=== PATIENT | female | born 1945 | race Caucasian/White ===

== ENCOUNTER → 2017-11-24 12:34 | Outpatient (CLI) | payer MEDICARE, OTHER, SELFPAY ==
--- NOTE | 2017-11-24 12:38 | CT_ITS ---
STUDY: CT ABDOMEN AND PELVIS WITH CONTRAST REASON FOR EXAM: Female, 72 years old. Lung nodule splenic nodule RADIATION DOSAGE (If Supplied By Facility): CTDIvol = ( 12.41 ) mGy, DLP = ( 1108.91 ) mGycm TECHNIQUE: Transaxial images were obtained from the dome of the diaphragm to the symphysis pubis with oral contrast. 100 ml of Isovue 300 contrast was administered. Sagittal and coronal images were reconstructed. Individualized dose optimization techniques were used for this CT. COMPARISON: August 07, 2017 CT scan abdomen and pelvis CT chest November 24, 2017 to evaluate the upper aspect of the liver. FINDINGS: The visualized lung bases are unremarkable. The visualized portions of the heart are within normal limits. The liver is mildly enlarged and fatty infiltrated. The liver is partially visualized on this study. Please refer to the CT scan of the chest performed the same day. Upon review of these images of the lower chest there is visualization of a homogeneous fatty infiltrated appearance of the liver. There is a gallstone within the cystic duct measuring 2.4 mm without evidence of associated inflammation intrahepatic or extrahepatic ductal dilatation. There is a persistent near isodense mass involving the spleen measuring 6.9 x 7.1 cm Normal pancreas. Normal bilateral adrenal glands. Normal right kidney. Normal left kidney. Normal visualized stomach. Normal small intestine. There is a moderate amount of stool within the fairly tortuous colon. There is a pattern of a few diverticula present without evidence of diverticulitis. There is upper limits of normal distention of the appendix caliber is 7 mm without evidence of surrounding inflammation fairly similar to prior study. There is partial calcification of the aorta. Normal inferior vena cava. Normal retroperitoneum. Normal urinary bladder. There is a small mass within the fundus of the uterus that measures 1.6 x 1.7 cm with calcification compatible with a small fibroid. There is a small umbilical hernia containing fat. There are diffuse degenerative changes of the visualized lumbar spine. CT/Abdomen/Pelvis WITH Contrast IMPRESSION: Stable large lobulation or mass within the spleen. Hepatic steatosis Cholelithiasis. Constipation and diverticulosis no evidence of diverticulitis. Uterine fibroid. Degenerative change of the thoracolumbar spine. Electronically Signed: Bebe Bahena MD at 17:12 EST Tel , Service support ,
--- NOTE | 2017-11-24 12:38 | CT_ITS ---
STUDY: CT CHEST WITHOUT CONTRAST REASON FOR EXAM: Female, 72 years old. Lung nodule RADIATION DOSAGE (If Supplied By Facility): CTDIvol = ( 12.41 ) mGy, DLP = ( 1108.91 ) mGycm TECHNIQUE: Transaxial imaging was performed without the administration of intravenous contrast material. Multiplanar coronal and sagittal images were reformatted. Individualized dose optimization techniques were used for this CT. COMPARISON: CT chest August 07, 2017 FINDINGS: There is a persistent slightly greater size focus of consolidated lung in the right upper lobe above the horizontal fissure. This is similar to the prior study. There are a few adjacent nodular densities and groundglass opacities extending into the anterior aspect of the right upper lobe and to some degree the middle lobe. The remainder of the lungs are grossly clear. There is no demonstrated pleural abnormality. There is borderline cardiac enlargement. Normal mediastinum. Normal hilar regions. Normal unenhanced pulmonary arteries. There is partial calcification of the aorta. There are multi-level degenerative changes of the thoracic spine. The liver is enlarged and fatty infiltrated. CT/Chest without Contrast IMPRESSION: There is a persistent focal density, bronchiectasis and scar like appearance within the right upper lobe with surrounding groundglass opacity and nodularity. There may be lesser groundglass opacities in prior study. Findings are suspicious for an inflammatory process, however neoplasm could be considered. Consider possible etiologies such as atypical pneumonia, chronic mycobacterium avium complex. Continued follow-up is recommended including consideration for follow-up bronchoscopy. Persistent large lobulation of the spleen stable since prior study. Hepatic steatosis. Electronically Signed: Bebe Bahena MD at 17:49 EST Tel , Service support ,
[2017-11-24 12:56] LABS: CREATININE FINGERSTICK 0.9 mg/dL (0.55-1.02); EGFR FINGERSTICK > 60.0000 mL/min (>60)
== END ==
PROVIDERS: Family Provider Internal Medicine; PCP Internal Medicine; Visit Provider Internal Medicine Pulmonary Disease
DX: R91.1 Solitary pulmonary nodule (principal); R16.1 Splenomegaly, not elsewhere classified
CPT/HCPCS: 71250; 74177; Q9967

== ENCOUNTER → 2018-01-06 11:03 | Outpatient (CLI) | payer MEDICARE, OTHER, SELFPAY ==
--- NOTE | 2018-01-06 11:06 | HPBD_ITS ---
STUDY: DUAL ENERGY X-RAY ABSORPTIOMETRY / DXA REASON FOR EXAM: Female, 72 years old. Postmenopausal female. Patient taking Forteo. TECHNIQUE: Bone Mineral Density (BMD) measurements of lumbar spine and left hip were obtained. COMPARISON: None. FINDINGS: Lumbar Spine (L1-L4): g/cm2 (1.256) / T-score (0.7) / Z-score (2.4) Findings are suggestive of normal bone density with a low fracture risk. Left Femur Total: g/cm2 (0.820) / T-score (-1.5) / Z-score (0.0) Left Femoral Neck: g/cm2 (0.876) / T-score (-1.2) / Z-score (0.6) HPBD/Dexa Bone Density Study (HP) IMPRESSION: The patient is considered osteopenic as outlined below according to World Byron Organization (WHO) criteria with a moderate fracture risk. Reference Information: The T-score is the number of standard deviations above or below the standard which is normal for young adults at their peak bone mineral density. The World Health Organization (WHO) interprets the T-scores as follows: Above -1 Normal bone density Between -1 and -2.5 Osteopenia Equal to / or below -2.5 Osteoporosis As a practical clinical guideline, osteopenia may be graded as follows: Mild -1 through -1.5 Moderate -1.6 through -2.0 Severe -2.1 through -2.4 The Z-score is the number of standard deviations above or below age-matched controls. A Z-score of less than -1.5 would be considered abnormal. References: 1. NIH Osteoporosis and Related Bone Diseases http://www.osteo.org 2. International Society for Clinical Densitometry http://www.iscd.org 3. National Osteoporosis Foundation http://www.nof.org Electronically Signed: Augustin Magaña DO at 9:05 EDT Tel [phone], Service support ,
== END ==
PROVIDERS: Family Provider Internal Medicine; PCP Internal Medicine; Visit Provider Internal Medicine
DX: Z78.0 Asymptomatic menopausal state (principal)
CPT/HCPCS: 77080

== ENCOUNTER → 2018-04-09 07:50 | Outpatient (CLI) | payer MEDICARE, OTHER, SELFPAY ==
[2018-04-09 10:47] LABS: Absolute Lymphocyte Count 1.48 X10^3/ul (0.83-4.51); Absolute Neutrophil Count 3.6 X10^3/uL (2.0-7.7); Basophil# 0.02 X10^3/uL; Basophil% 0.4 % (0-1); Eosinophil# 0.08 X10^3/uL; Eosinophils% 1.4 % (0-5); Hematocrit 38.5 % (37-47); Hemoglobin 12.8 g/dl (12.0-15.0); Lymphocyte # 1.48 X10^3/ul (4.0); Lymphocyte % 26.6 % (19-41); Mean Corp Hgb Conc 33.2 g/gl (32-36); Mean Corpuscular Hgb 32.1 pg (27.0-32.0); Mean Corpuscular Volume 96.5 fL (81-99); Mean Platelet Vol. 12.1 fl (6.2-12.0); Monocyte# 0.34 X10^3/uL; Monocyte% 6.1 % (0-10); Neutrophil # 3.63 X10^3/uL (2.7-7.7); Neutrophil % 65.3 % (47-70); Platelet Count 179 K/mm3 (150-450); RBC Distribution Width CV 11.9 % (11.6-14.6); RBC Distribution Width SD 40.7 fl (35.1-43.9); Red Blood Count 3.99 M/mm3 (4.2-5.4); White Blood Count 5.6 K/mm3 (4.4-11.0)
[2018-04-09 10:51] LABS: POSITIVE COUNT NO; POSITIVE DIFFERENTIAL NO; POSITIVE MORPHOLOGY NO
[2018-04-09 10:55] LABS: Vitamin B12 343 pg/mL (211-911); Vitamin D,25 Hydroxy 45.4 ng/mL (29.95-100.01)
[2018-04-09 10:58] LABS: ALB/GLOB Ratio 1.1 RATIO (0.9-2.4); AST(SGOT) 19 U/L (15-37); Alanine Aminotransfer ALT/SGPT 32 U/L (13-56); Albumin, Serum 3.7 g/dL (3.2-5.0); Alkaline Phosphatase 76 U/L (45-117); Anion Gap 8 (5-15); BUN 17 mg/dL (7-18); BUN/Creat Ratio 23.3 RATIO (10-20); Calcium,Total 8.6 mg/dL (8.5-10.1); Chloride 106 mmol/L (98-107); Cholesterol 143 mg/dL (200); Creatinine, Serum 0.73 mg/dL (0.55-1.02); EST Glomerular Filtration Rate 83 mL/min (>60); Est Glom Filt Rate - Afr Amer 101 mL/min (>60); Globulin 3.5 g/dL (2.2-4.2); Glucose 98 mg/dL (74-106); High Density Lipoprotein 60 mg/dL; Potassium 3.7 mmol/L (3.5-5.1); Protein, Total 7.2 g/dL (6.4-8.2); Sodium Level 142 mmol/L (136-145); Triglycerides 125 mg/dL; Very Low Density Lipoprotein 25 mg/dL (5-40)
[2018-04-09 11:13] LABS: Microalbumin,Random Urine 5.2 mg/L (NO RANGE EST.); Microalbumin:Creatinine Ratio 6.8 mg/g CRE (<30 mg/g CRE)
== END ==
PROVIDERS: Family Provider Internal Medicine; PCP Internal Medicine; Visit Provider Internal Medicine
DX: E78.5 Hyperlipidemia, unspecified (principal); R73.01 Impaired fasting glucose; E53.8 Deficiency of other specified B group vitamins; E55.9 Vitamin D deficiency, unspecified; K76.0 Fatty (change of) liver, not elsewhere classified; R79.82 Elevated C-reactive protein (CRP)
CPT/HCPCS: 36415; 80053; 80061; 82043; 82105; 82306; 82570; 82607; 85025; 86141

== ENCOUNTER → 2018-04-23 10:30 | Outpatient (CLI) | payer MEDICARE, OTHER, SELFPAY ==
--- NOTE | 2018-04-23 10:32 | RAD_ITS ---
STUDY: X-RAY - PELVIS AND LEFT HIP REASON FOR EXAM: Female, 72 years old. TECHNIQUE: Radiological exam, hip, unilateral, with pelvis when performed; 2 or 3 views. COMPARISON: None. FINDINGS: There is a non-specific bowel gas pattern. There are multiple calcified phleboliths. There are enthesophytes arising from the anterior superior iliac crests. Normal bilateral superior and inferior pubic rami. Normal pubic symphysis. There are enthesophytes arising from the ischial tuberosities. There are osteoarthritic changes of the left femoral head with marginal osteophyte formation. There appear to be enthesophytes arising from bilateral greater trochanters. There is osteoarthritic spur formation of the acetabular rim. There is mild articular joint space narrowing of the hip. RAD/Hip 2-3 Views with Pelvis IMPRESSION: Degenerative changes of the pelvis and both hips. Electronically Signed: Ira Segura MD at 8:53 EDT , Service support ,
== END ==
PROVIDERS: Family Provider Internal Medicine; PCP Internal Medicine; Visit Provider Internal Medicine
DX: M25.552 Pain in left hip (principal)
CPT/HCPCS: 73502

== ENCOUNTER → 2018-05-24 12:33 | Outpatient (CLI) | payer MEDICARE, OTHER, SELFPAY | PROVIDERS: Family Provider Internal Medicine; PCP Internal Medicine; Visit Provider Internal Medicine Pulmonary Disease | DX: R91.1 Solitary pulmonary nodule (principal) | CPT/HCPCS: 71250 ==

== ENCOUNTER → 2018-06-24 13:25 | Outpatient (CLI) | payer MEDICARE, OTHER, SELFPAY ==
--- NOTE | 2018-06-24 13:29 | CT_ITS ---
STUDY: CT ABDOMEN WITH CONTRAST REASON FOR EXAM: Female, 72 years old. Splenic mass RADIATION DOSAGE (If Supplied By Facility): CTDIvol = ( 13.36 ) mGy, DLP = ( 361.17 ) mGycm TECHNIQUE: Transaxial images were obtained post I.V. administration of 75CC ml of Isovue 250 contrast, and without oral contrast. Sagittal and coronal images were reconstructed. Individualized dose optimization techniques were used for this CT. COMPARISON: November 24, 2017. FINDINGS: The visualized lung bases are unremarkable. The visualized portions of the heart are within normal limits. Normal liver. There is a solitary gallstone. There is stable 8.3 x 7.3 cm heterogeneous enhancing mass in the lower pole of the spleen. Normal pancreas. Normal bilateral adrenal glands. Normal right kidney. Normal left kidney. Normal visualized stomach. Normal small intestine. Normal colon. The appendix is visualized and appears normal. There is diffuse atherosclerotic calcification of the abdominal aorta, without a demonstrated aneurysm. Normal inferior vena cava. Normal retroperitoneum. There is a small umbilical hernia containing fat. There are diffuse degenerative changes of the visualized lumbar spine. CT/Abdomen WITH IV Contrast IMPRESSION: Stable enhancing mass in the spleen. Gallstone. No biliary dilatation. Electronically Signed: Agustín Montoya MD at 10:24 EDT , Service support ,
[2018-06-25 07:45] LABS: CREATININE FINGERSTICK 0.7 mg/dL (0.55-1.02)
== END ==
PROVIDERS: Family Provider Internal Medicine; PCP Internal Medicine; Visit Provider Internal Medicine
DX: R16.1 Splenomegaly, not elsewhere classified (principal)
CPT/HCPCS: 74160; Q9967

== ENCOUNTER → 2018-08-18 17:43 | Outpatient (CLI) | payer MEDICARE, OTHER, SELFPAY ==
[2018-08-18 18:25] LABS: Creatinine, Serum 0.82 mg/dL (0.55-1.02); EST Glomerular Filtration Rate 73 mL/min (>60); Est Glom Filt Rate - Afr Amer 88 mL/min (>60)
== END ==
PROVIDERS: Family Provider Internal Medicine; PCP Internal Medicine; Referring Provider Podiatrist Foot & Ankle Surgery; Visit Provider Podiatrist Foot & Ankle Surgery
DX: M79.661 Pain in right lower leg (principal)
CPT/HCPCS: 36415; 82565

== ENCOUNTER → 2018-08-19 10:51 | Outpatient (CLI) | payer MEDICARE, OTHER, SELFPAY ==
--- NOTE | 2018-08-19 11:06 | MRI_ITS ---
STUDY: MRI LOWER EXTREMITY RIGHT TIBIA/FIBULA WITH AND WITHOUT CONTRAST REASON FOR EXAM: Follow-up of cortical irregularities of the fibula with periosteal reaction after a fall from a ladder. TECHNIQUE: Standardized fat and water weighted pulse sequences were obtained in all 3 orthogonal planes, post contrast administration. 7 ml of Gadavist contrast material was administered intravenously for the contrast portion of the examination. COMPARISON: None. FINDINGS: There is a nondisplaced fracture of the right fibular head/neck (T1 coronal images 13-15; T1 axial images 5, 6) with mild intramedullary and periosteal bone edema (inversion recovery axial images 5, 6) and mild periosteal contrast enhancement (postcontrast T1 axial images 5, 6). Otherwise, unremarkable right fibula. Normal right tibia. There is mild edema in the proximal right tibialis anterior, extensor digitorum longus, peroneus longus and soleus muscles (inversion recovery axial images 7-11). There is edema in the subcutis adipose space of the distal lower leg/ankle (inversion recovery coronal images 11-16). There is no solid, cystic or lipomatous mass lesion of the subcutis adipose space. MRI/Lower Ext/No Jt/w/o IMPRESSION: Nondisplaced fracture of the right fibular head/neck with mild periosteal reaction but no evidence of pathologic fracture. Mild edema in the proximal right tibialis anterior, extensor digitorum longus, peroneus longus and soleus muscles. Electronically Signed: Demarcus Glover MD at 10:41 EST Tel , Service support ,
== END ==
PROVIDERS: Family Provider Internal Medicine; PCP Internal Medicine; Referring Provider Podiatrist Foot & Ankle Surgery; Visit Provider Podiatrist Foot & Ankle Surgery
DX: M79.661 Pain in right lower leg (principal)
CPT/HCPCS: 73718; A9585

== ENCOUNTER → 2018-10-13 14:36 | Outpatient (CLI) | payer MEDICARE, OTHER, SELFPAY | PROVIDERS: Family Provider Internal Medicine; PCP Internal Medicine; Referring Provider Internal Medicine; Visit Provider Internal Medicine | DX: R50.9 Fever, unspecified (principal) | CPT/HCPCS: 87807 ==

== ENCOUNTER → 2018-11-26 08:18 | Outpatient (CLI) | payer MEDICARE, OTHER, SELFPAY ==
--- NOTE | 2018-11-26 08:22 | BI_ITS ---
MAMMOGRAPHY - BILATERAL SCREENING REASON FOR EXAM: Female, 73 years old. Routine annual screening examination. PERTINENT HISTORY: Grandmother with breast cancer. Aunt with breast cancer. Remote left stereotactic breast biopsy. TECHNIQUE: Digital bilateral breast tom (3D mammographic acquisition) in the CC and MLO projections. 2-D mediolateral oblique (MLO) and craniocaudad (CC) views of both breasts were obtained. CAD: Full Field Digital Mammography with Computer Added Detection was performed. COMPARISON: Comparison is made with prior study dated October 20, 2017 and October 17, 2016. FINDINGS: Breast Composition: The breasts are heterogeneously dense, which may obscure small masses. There are no dominant masses or suspicious calcifications. Stable appearance of the bilateral axillary lymph nodes. A tissue clip marker is seen in the retroareolar region of the left breast. No other significant abnormalities are identified. There has been no significant change since the prior study. BI/SCREENING MAMM (CAD), BILAT IMPRESSION: Stable bilateral screening mammogram. Yearly follow-up mammogram recommended. (A) ASSESSMENT CATEGORY: BIRADS Category 2: Benign. A letter regarding these results will be sent to the patient by the facility within 30 days. Approximately 10% of breast cancers are not detected by mammography. A normal mammogram should not delay biopsy of a clinically suspicious abnormality. [id number] Electronically Signed: Nikita Gilmore MD at 11:04 EST , Service support ,
== END ==
PROVIDERS: Family Provider Internal Medicine; PCP Internal Medicine; Referring Provider Internal Medicine; Visit Provider Internal Medicine
DX: Z12.31 Encounter for screening mammogram for malignant neoplasm of breast (principal)
CPT/HCPCS: 77063; 77067

== ENCOUNTER → 2019-01-25 07:29 | Outpatient (CLI) | payer MEDICARE, OTHER, SELFPAY ==
[2019-01-18 11:05] VITALS: BMI 30.5
--- NOTE | 2019-01-25 07:35 | CT_ITS ---
STUDY: CT ABDOMEN WITH CONTRAST REASON FOR EXAM: Female, 73 years old. Splenic mass RADIATION DOSAGE (If Supplied By Facility): CTDIvol = ( 17.76 ) mGy, DLP = ( 1009.72 ) mGycm TECHNIQUE: Transaxial images were obtained post I.V. administration of 100 IV/Oral Isovue 300, and oral contrast. Sagittal and coronal images were reconstructed. Individualized dose optimization techniques were used for this CT. COMPARISON: 06/24/2018 FINDINGS: Minimal atelectasis versus scar at the left medial lung base. Diffuse homogeneous hypoattenuation of the liver parenchyma. Normal gallbladder and extrahepatic biliary system. 7.5 x 6.8 cm heterogeneously enhancing mass within the anterior splenic pole, unchanged in size and appearance compared to prior imaging dating back to remote PET/CT imaging dated 08/24/2017. Normal pancreas. Normal bilateral adrenal glands. Visualized portions of the kidneys are normal with the exception of indeterminate hypoattenuated lesions at the right upper renal pole, unchanged from prior imaging.. Normal left kidney. Normal visualized stomach. Visualized small bowel loops are normal. Visualized colonic segments are normal.. Normal abdominal aorta. Normal inferior vena cava. Normal retroperitoneum. Normal abdominal wall. No acute skeletal abnormality. Mild multilevel degenerative change of the spine. CT/Abdomen WITH IV Contrast IMPRESSION: 1. Stable 7.5 cm enhancing mass within the anterior splenic pole, potentially representing a large splenic hamartoma 2. Mild fatty infiltration of the liver. 3. Hypoattenuated lesions in the right upper renal pole which are too small to characterize but which likely represent simple cysts. Electronically Signed: Jaron Howe MD at 2:22 EDT Tel , Service support ,
== END ==
PROVIDERS: Family Provider Internal Medicine; PCP Internal Medicine; Referring Provider Internal Medicine; Visit Provider Internal Medicine
DX: R16.1 Splenomegaly, not elsewhere classified (principal)
CPT/HCPCS: 74160; Q9967

== ENCOUNTER → 2019-05-24 | Outpatient (CLI) | payer MEDICARE, OTHER, SELFPAY ==
[2019-01-18 11:05] VITALS: BMI 30.5
--- NOTE | 2019-05-24 12:41 | CT_ITS ---
STUDY: CT CHEST WITHOUT CONTRAST REASON FOR EXAM: Female, 73 years old. Follow-up lung nodule RADIATION DOSAGE (If Supplied By Facility): CTDIvol = ( 8.20 ) mGy, DLP = ( 294.69 ) mGycm TECHNIQUE: Transaxial imaging was performed without the administration of intravenous contrast material. Individualized dose optimization techniques were used for this CT. COMPARISON: Prior study of 05/24/2018 FINDINGS: There is a 2.6 mm nodule of the anterior right upper lobe apex image 47 series 4, new in the interval. There is a stable 5.0 cm millimeter nodule of the anterior right upper lobe, image 54 series 4. There are scattered ill-defined patchy densities of the right upper lobe appearing similar to the previous study. There are fibrotic changes with bronchiectasis of the right upper lobe, similar to the previous study. There is a pleural-based 4 mm nodule of the posterior right lower lobe, stable in the interval. There is a stable 4.7 mm left lingular nodule image 196 series 4. There is a stable 3.7 mm left lower lobe nodule image 167 series 4. There is a stable 6.4 mm pleural-based nodule of the left lower lobe image 139 series 4. There is a stable 4.5 mm nodule of the left upper lobe image 96 series 4. There is no demonstrated pleural abnormality. The heart size is within normal limits. There is no pericardial effusion. Coronary arterial calcifications are present. Normal mediastinum. Normal hilar regions. Normal unenhanced pulmonary arteries. There calcified plaques of the aortic arch. The ascending thoracic aorta is ectatic measuring up to 3.9 cm in diameter. There are diffuse degenerative changes of the visualized thoracolumbar spine. There is a homogeneous enhancing mass of the inferior spleen measuring at least 7.9 x 7.5 cm. The entirety of this is not included in the [id number] of this study. This appears similar to prior CT abdomen of 01/25/2019. CT/Chest without Contrast IMPRESSION: Multiple bilateral pulmonary nodules stable in the interval. No new nodules are evident. Appropriate follow-up using Fleischner Society criteria is recommended. There are scattered ill-defined patchy densities of the right upper lobe with fibrotic changes and bronchiectasis, appearing stable. Ectatic ascending thoracic aorta. Homogeneous enhancing mass of the inferior spleen measuring at least 7.9 x 7.5 cm. The entirety of this is not included in the field of view of this study. This appears similar to prior CT abdomen of 01/25/2019. Electronically Signed: Ant Christie MD at 17:22 EDT , Service support ,
== END | disposition home or self-care (01) ==
LOC: CT 12:40
PROVIDERS: Family Provider Internal Medicine; PCP Internal Medicine; Referring Provider Internal Medicine Pulmonary Disease; Visit Provider Internal Medicine Pulmonary Disease
DX: R91.8 Other nonspecific abnormal finding of lung field (principal)
CPT/HCPCS: 71250

== ENCOUNTER → 2019-08-23 14:45 | Outpatient (CLI) | payer MEDICARE, OTHER, SELFPAY ==
[2019-01-18 11:05] VITALS: BMI 30.5
--- NOTE | 2019-08-23 14:47 | CT_ITS ---
STUDY: CT ABDOMEN WITH CONTRAST REASON FOR EXAM: Female, 74 years old. Splenic mass RADIATION DOSAGE (If Supplied By Facility): CTDIvol = ( 11.14 ) mGy, DLP = ( 348.72 ) mGycm TECHNIQUE: Transaxial images were obtained post I.V. administration of IV/Oral Isovue 300 100, and with oral contrast. Sagittal and coronal images were reconstructed. Individualized dose optimization techniques were used for this CT. COMPARISON: January 25, 2019. FINDINGS: The visualized lung bases are unremarkable. The visualized portions of the heart are within normal limits. Fatty liver. Cholelithiasis. No significant dilatation of the extrahepatic biliary system. There is a solid homogeneous 7.7 x 6.7 x 7.3 cm mass in the spleen. Normal pancreas. Normal bilateral adrenal glands. Probable subcentimeter cysts in the right kidney. Normal left kidney. Normal visualized stomach. Normal small intestine. Diverticulosis of the colon. The appendix is not completely included on the study. Normal abdominal aorta. Normal inferior vena cava. Normal retroperitoneum. Small fatty umbilical hernia. Normal osseous structures. CT/Abdomen WITH IV Contrast IMPRESSION: Cholelithiasis. Solid relatively stable heterogeneous splenic mass. Small fatty umbilical hernia. Fatty liver. Probable subcentimeter right renal cysts. Electronically Signed: Emory Meléndez DO at 23:25 EST Tel [phone], Service support ,
[2019-08-23 15:01] LABS: CREATININE FINGERSTICK < 0.6 mg/dL (0.55-1.02); EGFR FINGERSTICK > 60.0000 mL/min (>60)
== END ==
PROVIDERS: Family Provider Internal Medicine; PCP Internal Medicine; Referring Provider Internal Medicine; Visit Provider Internal Medicine
DX: R16.1 Splenomegaly, not elsewhere classified (principal)
CPT/HCPCS: 74160; Q9967

== ENCOUNTER → 2019-10-10 12:30 | Outpatient (CLI) | payer MEDICARE, OTHER, SELFPAY ==
[2019-01-18 11:05] VITALS: BMI 30.5
--- NOTE | 2019-10-10 12:36 | RAD_ITS ---
STUDY: X-RAY - LUMBAR SPINE REASON FOR EXAM: Female, 74 years old. left leg numbness TECHNIQUE: 3 view(s) of the lumbar spine were obtained. COMPARISON: None FINDINGS: Normal lumbar lordosis. There is no substantial scoliosis. There is a normal alignment of the vertebrae. There is diffuse demineralization with multi-level endplate spondylosis. There is multi-level degenerative disc disease with multi-level disc space narrowing. Disc space narrowing most conspicuous at L4-L5 and L5-S1. Moderate facet arthropathy in the lower lumbar levels. There is no demonstrated fracture. The soft tissue structures are unremarkable. RAD/L/S Spine Min 4 Views IMPRESSION: 1. Multilevel degenerative changes most particularly in the lower 2 lumbar levels. Electronically Signed: Ino Mullen MD ([place]) at 12:44 EST , Service support ,
== END ==
PROVIDERS: Family Provider Internal Medicine; PCP Internal Medicine; Referring Provider Internal Medicine; Visit Provider Internal Medicine
DX: R20.0 Anesthesia of skin (principal)
CPT/HCPCS: 72110

== ENCOUNTER → 2020-03-13 10:36 | Outpatient (CLI) | payer MEDICARE, OTHER, SELFPAY ==
[2019-01-18 11:05] VITALS: BMI 30.5
--- NOTE | 2020-03-13 10:41 | RAD_ITS ---
STUDY: X-RAY - THORACIC SPINE REASON FOR EXAM: Female, 74 years old. upper------ and gt;mid back pain, no injury TECHNIQUE: 3 view(s) of the thoracic spine were obtained. COMPARISON: None. FINDINGS: Mildly exaggerated kyphosis of the thoracic spine. There is no substantial scoliosis. No evidence for acute fracture or subluxation. There is multilevel disc space narrowing and endplate spurring. No lytic or sclerotic bony lesions are observed The soft tissue structures are unremarkable. RAD/Thoracic Spine 3 Views IMPRESSION: Degenerative changes. No evidence for acute fracture or other significant bony pathology Electronically Signed: Saroj Willingham MD at 21:33 EDT , Service support ,
== END ==
PROVIDERS: PCP Internal Medicine; Referring Provider Internal Medicine; Visit Provider Internal Medicine
DX: M54.6 Pain in thoracic spine (principal)
CPT/HCPCS: 72072

== ENCOUNTER → 2020-04-05 13:31 | Outpatient (CLI) | payer MEDICARE, OTHER, SELFPAY ==
[2019-01-18 11:05] VITALS: BMI 30.5
--- NOTE | 2020-04-05 13:34 | CT_ITS ---
STUDY: CT CHEST WITHOUT CONTRAST REASON FOR EXAM: Female, 74 years old. LUNG NODULE F/U RADIATION DOSAGE (If Supplied By Facility): CTDIvol = ( 6.34 ) mGy, DLP = ( 806.45 ) mGycm TECHNIQUE: Transaxial imaging was performed without the administration of intravenous contrast material. Multiplanar coronal and sagittal images were reformatted. Individualized dose optimization techniques were used for this CT. COMPARISON: 05/24/2019 FINDINGS: Lung windows show stable scattered patchy groundglass opacifications in the upper lobe. They measure between 0.4 and 0.7 mm and are essentially unchanged from the previous study. There is a stable likely fibrotic scar also in the right upper lobe on axial image 86 is again measures approximately 3.6 x 3.8 cm with associated traction bronchiectasis and pleural thickening. No other suspicious noncalcified mass or nodule noted. There are other areas of groundglass opacifications in the right lower lobe also unchanged from the previous study. Soft tissue windows show a normal-appearing thyroid gland. There are scattered subcentimeter axillary and mediastinal lymph nodes. There are calcified coronary vessels. No pleural or pericardial effusions. Limited cuts through the upper abdomen show a stable splenic lesion measuring at least 7.9 x 7.5 cm. There are multi-level degenerative changes of the thoracic spine. CT/Chest without Contrast IMPRESSION: Stable patchy ill-defined right upper lobe densities with fibrotic change and bronchiectasis. Stable too numerous to count round glass opacifications in the right upper and lower lobes unchanged from the previous study No suspicious adenopathy Calcified coronary vessels Stable splenic mass Degenerative bony changes Electronically Signed: Chas Joya MD at 13:33 EDT , Service support ,
--- NOTE | 2020-04-05 13:35 | CT_ITS ---
STUDY: CT ABDOMEN WITH CONTRAST REASON FOR EXAM: Female, 74 years old. SPLENIC MASS. No abdominal pain. Delays included in scan RADIATION DOSAGE (If Supplied By Facility): CTDIvol = ( 6.34 ) mGy, DLP = ( 806.45 ) mGycm TECHNIQUE: Transaxial images were obtained post I.V. administration of IV 100ML ISOVUE 370, and oral contrast. Sagittal and coronal images were reconstructed. Individualized dose optimization techniques were used for this CT. COMPARISON: 08/23/2019 FINDINGS: There is decreased attenuation of the liver consistent with steatosis. There are multiple gallstones. Stable appearance of a solid homogeneous 7.7 x 6.7 x 7.3 cm splenic mass. It shows no interval change since the previous study. Normal pancreas. Normal bilateral adrenal glands. No obstructive uropathy, stable subcentimeter cysts in the right kidney. Normal visualized stomach. Normal small intestine. Retained stool noted in the colon. There is non-visualization of the appendix. Normal abdominal aorta. Normal inferior vena cava. Normal retroperitoneum. There is a small fat-containing periumbilical hernia There are diffuse degenerative changes of the visualized lumbar spine. CT/Abdomen WITH IV Contrast IMPRESSION: Stable solid homogeneous splenic lesion, no change since 08/07/2017, no specific follow-up needed. Cholelithiasis, no CT evidence of acute cholecystitis Stable subcentimeter right renal cysts, again no specific follow-up is needed Degenerative bony changes Fatty liver Electronically Signed: Chas Joya MD at 13:43 EDT , Service support ,
--- NOTE | 2020-04-05 14:20 | BI_ITS ---
MAMMOGRAPHY - BILATERAL SCREENING 3-D TOMOSYNTHESIS REASON FOR EXAM: Female, 74 years old. Routine screening PERTINENT HISTORY: FAM HX PAT GMA AGE 51, PAT AUNTS AGES -- LOST 10# -- LT STEREO BX 2004 -- BILAT MOLE MARKED -- RT AXILLARY LYMPH NODE BX''D 2017=NEG -- LESION ON LUNG AND SPLEEN. TECHNIQUE: 2-D mammograms and 3-D Tomosynthesis of the breast (s) were performed. CAD was performed. COMPARISON: 11/26/2018 FINDINGS: The breast composition is heterogeneously dense that can obscure small breast masses. Scattered benign calcifications are seen. No dense spiculated masses or suspicious microcalcifications are identified. No architectural distortion is identified. There is no skin thickening or retraction. There has been no significant change since the prior study. BI/SCREEN MAMM (CAD) W/CASIE BILAT IMPRESSION: No mammographic signs of malignancy. Routine yearly mammograms recommended. ASSESSMENT CATEGORY: BIRADS Category 2: Benign. A letter regarding these results will be sent to the patient by the facility within 30 days. FOLLOW UP RECOMMENDATION: Yearly follow up mammogram recommended. (A) Approximately 10% of breast cancers are not detected by mammography. A normal mammogram should not delay biopsy of a clinically suspicious abnormality. Electronically Signed: Chas Joya MD at 15:17 EDT , Service support ,
== END ==
PROVIDERS: PCP Internal Medicine; Referring Provider Internal Medicine; Visit Provider Internal Medicine
DX: Z12.31 Encounter for screening mammogram for malignant neoplasm of breast (principal); Z78.0 Asymptomatic menopausal state; R16.1 Splenomegaly, not elsewhere classified; R91.8 Other nonspecific abnormal finding of lung field
CPT/HCPCS: 71250; 74160; 77063; 77067; Q9967

== ENCOUNTER → 2020-04-19 10:56 | Outpatient (CLI) | payer MEDICARE, OTHER, SELFPAY ==
[2019-01-18 11:05] VITALS: BMI 30.5
--- NOTE | 2020-04-19 10:59 | BD_ITS ---
STUDY: DUAL ENERGY X-RAY ABSORPTIOMETRY / DXA REASON FOR EXAM: Female, 74 years old. Age of cathy 53. Pat is 156.6# and 62 and quot;. Past hx of using Forteo. Uses an inhaler. Hx of a right wrist fx. Does not exercise. TECHNIQUE: Bone Mineral Density (BMD) measurements of lumbar spine and bilateral hips were obtained. COMPARISON: Comparison is made with prior study dated August 26, 2012. FINDINGS: Lumbar Spine (L1-L4): g/cm2 (1.290) / T-score (0.9) / Z-score (2.6) Findings are suggestive of normal bone density with a low fracture risk. Left Femur Total: g/cm2 (0.811) / T-score (-1.6) / Z-score (0.1) Left Femoral Neck: g/cm2 (0.836) / T-score (-1.5) / Z-score (0.4) Right Femur Total: g/cm2 (0.802) / T-score (-1.6) / Z-score (0.0) Right Femoral Neck: g/cm2 (0.877) / T-score (-1.2) / Z-score (0.7) The T-Scores on the most recent prior examination were: Lumbar Spine (L1-L4): There has been improvement of bone density since the previous examination. Left Femur Total: which represents a worsening of 2.6%. Right Femur Total: which represents a worsening of 2.2%. BD/Dexa Bone Density Study IMPRESSION: The patient is considered osteopenic as outlined below according to World [place] Organization (WHO) criteria with a moderate fracture risk. There has been worsening of bone density since the previous examination. Reference Information: The T-score is the number of standard deviations above or below the standard which is normal for young adults at their peak bone mineral density. The World Health Organization (WHO) interprets the T-scores as follows: Above -1 Normal bone density Between -1 and -2.5 Osteopenia Equal to / or below -2.5 Osteoporosis As a practical clinical guideline, osteopenia may be graded as follows: Mild -1 through -1.5 Moderate -1.6 through -2.0 Severe -2.1 through -2.4 The Z-score is the number of standard deviations above or below age-matched controls. A Z-score of less than -1.5 would be considered abnormal. References: 1. NIH Osteoporosis and Related Bone Diseases http://www.osteo.org 2. International Society for Clinical Densitometry http://www.iscd.org 3. National Osteoporosis Foundation http://www.nof.org Electronically Signed: Nikita Gilmore, at 15:20 EDT , Service support ,
== END ==
PROVIDERS: PCP Internal Medicine; Referring Provider Internal Medicine; Visit Provider Internal Medicine
DX: Z78.0 Asymptomatic menopausal state (principal); M85.80 Other specified disorders of bone density and structure, unspecified site
CPT/HCPCS: 77080

== ENCOUNTER → 2021-04-19 07:59 | Outpatient (CLI) | payer MEDICARE, OTHER, SELFPAY ==
[2020-08-02 11:26] VITALS: BMI 28.0
--- NOTE | 2021-04-19 08:02 | US_ITS ---
STUDY: ABDOMINAL ULTRASOUND - RIGHT UPPER QUADRANT REASON FOR VISIT: Female, 75 years old FATTY LIVER TECHNIQUE: Ultrasound evaluation of the right upper quadrant was performed with real-time and static bal-scale imaging. TECHNICAL QUALITY: Adequate. COMPARISON: Comparison is made with prior examination of 09/25/2016. FINDINGS: Liver: The liver measures 13.8 cm. There is increased echogenicity consistent with fatty infiltration. Focal fatty sparing is seen in the region of the gallbladder fossa. The bile ducts are within normal limits. There is hepatic color flow. The direction of portal flow is hepatopetal. There is no demonstrated mass lesion. Gallbladder: Normal distended gallbladder. The gallbladder wall measures 1.4 mm. There is a negative sonographic Arroyo''s sign. There is no pericholecystic fluid. There is a solitary echogenic gallstone within the gallbladder. Common Bile Duct (C.B.D.): The common bile duct measures 5.3 mm. Pancreas: Normal size of the head, body and tail of the pancreas. There is normal echogenicity of the pancreas. There is no demonstrated pancreatic mass or cyst. Right Kidney: Normal size of the right kidney. The right kidney measures 10 cm x 5.5cm x 4.4 cm. Normal renal cortex. The right cortex measures 1.3 cm. There is no demonstrated renal mass or cyst. There is no right hydronephrosis. US/Liver IMPRESSION: Fatty infiltration of the liver with focal fatty sparing in the region of the gallbladder fossa. There is evidence of a solitary gallstone within the gallbladder lumen. Electronically Signed: Nikita Gilmore MD at 9:56 EDT , Service support ,
--- NOTE | 2021-04-19 08:02 | BI_ITS ---
MAMMOGRAPHY - BILATERAL SCREENING REASON FOR EXAM: Female, 75 years old. Routine annual screening examination. PERTINENT HISTORY: Grandmother with breast cancer. Aunt with breast cancer. Remote left stereotactic breast biopsy. TECHNIQUE: Digital bilateral breast casie (3D mammographic acquisition) in the CC and MLO projections. 2-D mediolateral oblique (MLO) and craniocaudad (CC) views of both breasts were obtained. CAD: Full Field Digital Mammography with Computer Added Detection was performed. COMPARISON: Comparison is made with prior study dated 04/05/2020 and 11/26/2018. FINDINGS: Breast Composition: The breasts are heterogeneously dense, which may obscure small masses. There are no dominant masses or suspicious calcifications. Stable benign-appearing bilateral axillary lymph nodes. No other significant abnormalities are identified. There has been no significant change since the prior study. BI/SCRN MAMM (CAD)W/CASIE BILAT IMPRESSION: Stable bilateral screening mammogram. Yearly follow-up mammogram recommended. (A) ASSESSMENT CATEGORY: BIRADS Category 2: Benign. A letter regarding these results will be sent to the patient by the facility within 30 days. Approximately 10% of breast cancers are not detected by mammography. A normal mammogram should not delay biopsy of a clinically suspicious abnormality. [id number] Electronically Signed: Nikita Gilmore MD at 8:46 EDT , Service support ,
== END ==
PROVIDERS: PCP Internal Medicine; Referring Provider Internal Medicine; Visit Provider Internal Medicine
DX: Z12.31 Encounter for screening mammogram for malignant neoplasm of breast (principal)
CPT/HCPCS: 76705; 77063; 77067

== ENCOUNTER → 2021-09-10 11:24 | Outpatient (CLI) | payer MEDICARE, OTHER, SELFPAY ==
[2021-09-10 12:49] LABS: BNP,B-Type NATRIURETIC PEPTIDE 36.7 pg/mL (0-100)
== END ==
PROVIDERS: PCP Internal Medicine; Referring Provider Internal Medicine Cardiovascular Disease; Visit Provider Internal Medicine Cardiovascular Disease
DX: R06.00 Dyspnea, unspecified (principal)
CPT/HCPCS: 36415; 83880

== ENCOUNTER → 2021-09-19 13:42 | Outpatient (CLI) | payer MEDICARE, OTHER, SELFPAY ==
--- NOTE | 2021-09-19 13:44 | ECHOD_ITS ---
Reason For Study: DYSPNEA Procedure This was a 2D Doppler, Color Flow transthoracic echocardiogram. Exam performed in department. Left Ventricle Normal LV size. Left ventricular systolic function is normal. The estimated ejection fraction is 65 %. Stage 1 diastolic dysfunction. No regional wall motion abnormalities noted. Right Ventricle Normal RV size. Normal systolic function. Atria Normal left atrium. Normal right atrium. Mitral Valve Normal mitral valve. Tricuspid Valve Normal tricuspid valve. Mild (1+) tricuspid valve insufficiency. Pulmonary artery systolic pressure is 50 mmHg. Moderate pulmonary hypertension. Aortic Valve Normal aortic valve. Trisinus/trileaflet aortic valve. Pulmonic Valve Normal pulmonic valve. Great Vessels Normal aortic root. The pulmonary artery is normal size. Normal inferior vena cava. Pericardium/Pleural No pericardial effusion. MMode/2D Measurements & Calculations LVIDd: 4.4 cm IVSd: 0.96 cm Ao root diam: 3.4 cm LVIDs: 2.6 cm LVPWd: 0.90 cm RVDd: 3.4 cm FS: 41.3 % LAV(MOD-bp): 48.0 ml LVAd ap4: 23.3 cm2 LVAd ap2: 24.8 cm2 LAV(MOD-bp) Indexed: 28.1 ml/m2 LVLd ap4: 6.8 cm LVLd ap2: 7.5 cm LAV(MOD-sp2): 57.0 ml EDV(MOD-sp4): 66.8 ml EDV(MOD-sp2): 70.7 ml LAV(MOD-sp4): 39.8 ml EDV(sp4-el): 68.0 ml EDV(sp2-el): 69.7 ml LVAs ap4: 12.0 cm2 LVLs ap4: 5.5 cm ESV(MOD-sp4): 23.0 ml ESV(sp4-el): 22.4 ml EF(MOD-sp4): 65.5 % EF(sp4-el): 67.1 % SV(MOD-sp4): 43.8 ml SV(sp4-el): 45.6 ml LA A4 area: 16.0 cm2 LA dimension(2D): 3.9 cm RA A4 area: 15.6 cm2 Doppler Measurements & Calculations MV E max kristopher: 67.4 cm/sec Lat Peak E' Kristopher: 8.6 cm/sec Med Peak E' Kristopher: 5.7 cm/sec MV A max kristopher: 106.2 cm/sec E/E' lat: 7.8 E/E' med: 11.9 MV E/A: 0.63 Ao V2 max: 145.0 cm/sec LV V1 max: 108.7 cm/sec PA V2 max: 78.8 cm/sec Ao max P.4 mmHg LV V1 max P.7 mmHg PI end-d kristopher: 73.4 cm/sec TR max kristopher: 344.0 cm/sec TR max P.3 mmHg ECHO/Echo Complete Interpretation Summary Normal LV size. Left ventricular systolic function is normal. The estimated ejection fraction is 65 %. Stage 1 diastolic dysfunction. Pulmonary artery systolic pressure is 50 mmHg. Moderate pulmonary hypertension. Ordering Physician: Jace Summers Referring Physician: RIMMA WELLS Performed By: Ana Ring, RDCS, RVT
== END ==
PROVIDERS: PCP Internal Medicine; Referring Provider Internal Medicine Cardiovascular Disease; Visit Provider Internal Medicine Cardiovascular Disease
DX: R06.00 Dyspnea, unspecified (principal)
CPT/HCPCS: 93306

== ENCOUNTER → 2022-02-20 | Outpatient (CLI) | payer MEDICARE, OTHER, SELFPAY ==
--- NOTE | 2022-02-20 07:48 | US_ITS ---
STUDY: ABDOMINAL ULTRASOUND - RIGHT UPPER QUADRANT REASON FOR VISIT: Female, 76 years old FATTY LIVER TECHNIQUE: Ultrasound evaluation of the right upper quadrant was performed with real-time and static bal-scale imaging. TECHNICAL QUALITY: Adequate. COMPARISON: Comparison is made with prior study 04/19/2021. FINDINGS: Liver: The liver measures 15.8 cm. There is increased echogenicity consistent with fatty infiltration. Focal fatty sparing is seen in the region of the gallbladder fossa. The bile ducts are within normal limits. There is hepatic color flow. The direction of portal flow is hepatopetal. There is no demonstrated mass lesion. Gallbladder: Normal distended gallbladder. The gallbladder wall measures 1.2 mm. There is a negative sonographic Arroyo''s sign. There is no pericholecystic fluid. Solitary gallstone measuring 1 cm x 1 cm x 0.7 cm. Common Bile Duct (C.B.D.): The common bile duct measures 7.1 mm. Pancreas: Normal size of the head, body and tail of the pancreas. There is normal echogenicity of the pancreas. There is no demonstrated pancreatic mass or cyst. Right Kidney: Normal size of the right kidney. The right kidney measures 10.7 cm x 5.7cm x 4.3 cm. Normal renal cortex. The right cortex measures 1.3 cm. There is no demonstrated renal mass or cyst. There is no right hydronephrosis. 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 Solitary gallstone. Stable examination. Electronically Signed: Nikita Gilmore MD at 12:23 EDT ,
== END | disposition home or self-care (01) ==
LOC: US 07:47
PROVIDERS: PCP Internal Medicine; Referring Provider Internal Medicine; Visit Provider Internal Medicine
DX: K76.0 Fatty (change of) liver, not elsewhere classified (principal)
CPT/HCPCS: 76705

== ENCOUNTER → 2022-04-22 | Outpatient (CLI) | payer MEDICARE, OTHER, SELFPAY ==
--- NOTE | 2022-04-22 12:14 | BI_ITS ---
MAMMOGRAPHY - BILATERAL SCREENING REASON FOR EXAM: Female, 76 years old. Routine annual screening examination. PERTINENT HISTORY: Grandmother with breast cancer. Aunts with breast cancer. Prior left stereotactic breast biopsy. TECHNIQUE: Digital bilateral breast casie (3D mammographic acquisition) in the CC and MLO projections. 2-D mediolateral oblique (MLO) and craniocaudad (CC) views of both breasts were obtained. CAD: Full Field Digital Mammography with Computer Added Detection was performed. COMPARISON: Comparison is made with prior study dated 04/19/2021 and 04/05/2020. FINDINGS: Breast Composition: The breasts are heterogeneously dense, which may obscure small masses. There are no dominant masses or suspicious calcifications. A tissue clip marker is seen in the retroareolar region of the left breast. Stable benign-appearing bilateral axillary lymph nodes. No other significant abnormalities are identified. There has been no significant change since the prior study. BI/SCRN MAMM (CAD)W/CASIE BILAT IMPRESSION: Stable bilateral screening mammogram. Yearly follow-up mammogram recommended. (A) ASSESSMENT CATEGORY: BIRADS Category 2: Benign. A letter regarding these results will be sent to the patient by the facility within 30 days. Approximately 10% of breast cancers are not detected by mammography. A normal mammogram should not delay biopsy of a clinically suspicious abnormality. [id number] Electronically Signed: Nikita Gilmore MD at 13:32 EDT ,
--- NOTE | 2022-04-22 12:19 | BD_ITS ---
STUDY: DUAL ENERGY X-RAY ABSORPTIOMETRY / DXA REASON FOR EXAM: Female, 76 years old. M85.89. The patient is postmenopausal. TECHNIQUE: Bone Mineral Density (BMD) measurements of lumbar spine and bilateral hips were obtained. COMPARISON: Comparison is made with prior study dated 04/19/2020. FINDINGS: Lumbar Spine (L1-L4): g/cm2 (1.159) / T-score (1.0) / Z-score (3.5) Findings are suggestive of normal bone density with a low fracture risk. Left Femur Total: g/cm2 (0.761) / T-score (-1.5) / Z-score (0.3) Left Femoral Neck: g/cm2 (0.707) / T-score (-1.3) / Z-score (0.8) Right Femur Total: g/cm2 (0.773) / T-score (-1.4) / Z-score (0.4) Right Femoral Neck: g/cm2 (0.727) / T-score (-1.1) / Z-score (1.0) The T-Scores on the most recent prior examination were: Lumbar Spine (L1-L4): There has been improvement of bone density since the previous examination. Left Femur Total: which represents an improvement of 1.3%. Right Femur Total: which represents an improvement of 4.2%. BD/Dexa Bone Density Study IMPRESSION: The patient is considered osteopenic as outlined below according to [place] Organization (WHO) criteria with a low fracture risk. There has been improvement of bone density since the previous examination. Reference Information: The T-score is the number of standard deviations above or below the standard which is normal for young adults at their peak bone mineral density. The World Health Organization (WHO) interprets the T-scores as follows: Above -1 Normal bone density Between -1 and -2.5 Osteopenia Equal to / or below -2.5 Osteoporosis As a practical clinical guideline, osteopenia may be graded as follows: Mild -1 through -1.5 Moderate -1.6 through -2.0 Severe -2.1 through -2.4 The Z-score is the number of standard deviations above or below age-matched controls. A Z-score of less than -1.5 would be considered abnormal. References: 1. NIH Osteoporosis and Related Bone Diseases www osteo.org 2. International Society for Clinical Densitometry www iscd.org 3. National Osteoporosis Foundation www nof.org Electronically Signed: Nikita Gilmore MD at 15:28 EDT ,
== END | disposition home or self-care (01) ==
LOC: OPBD 12:13
PROVIDERS: PCP Internal Medicine; Visit Provider Internal Medicine
DX: Z12.31 Encounter for screening mammogram for malignant neoplasm of breast (principal); K76.0 Fatty (change of) liver, not elsewhere classified; M85.89 Other specified disorders of bone density and structure, multiple sites; Z78.0 Asymptomatic menopausal state; Z80.3 Family history of malignant neoplasm of breast
CPT/HCPCS: 77063; 77067; 77080

== ENCOUNTER → 2022-08-08 | Outpatient (CLI) | payer SELFPAY ==
[2022-08-08 13:16] VITALS: BP 124/56; PULSE 62; RESP 16; O2SAT 97; BMI 28.0
--- NOTE | 2022-08-08 13:25 | CT_ITS ---
STUDY: CT CHEST WITHOUT CONTRAST REASON FOR EXAM: Female, 76 years old. FAMILY HX coronary artery disease. Cardiac over read examination. RADIATION DOSAGE (If Supplied By Facility): CTDIvol = ( 12.19 ) mGy, DLP = ( 219.42 ) mGycm TECHNIQUE: Transaxial imaging was performed without the administration of intravenous contrast material. Individualized dose optimization techniques were used for this CT. COMPARISON: No relevant priors. FINDINGS: CHEST There is evidence of heterogeneous pulmonary infiltration in the right upper lobes with areas of bronchiectasis. There is mild degree of volume loss. Mild degree of increased markings in the posterior aspect of the right middle lobe as well as in the right lower lobe. Noncalcified bilateral pulmonary nodules. A dedicated CT scan of the thorax is recommended for further evaluation. There is no demonstrated pleural abnormality. There are calcifications of the coronary arteries. There are multiple small lymph nodes within the mediastinum, which are normal in size and morphology most compatible with reactive lymph hyperplasia. Normal hilar regions. Normal unenhanced pulmonary arteries. There is atherosclerotic calcification of the aortic arch with tortuosity and elongation of the aortic arch and descending thoracic aorta. There are degenerative changes of the thoracic spine. There is no demonstrated abnormality of the visualized upper abdomen. CT/Limited Chest CT Cardiac Only IMPRESSION: Limited cardiac orbit examination demonstrating dense consolidation in the right upper lobe with areas of bronchiectasis and volume loss. Patchy infiltrates at the lung bases with bibasilar pulmonary nodules. A repeat dedicated CT scan of the thorax is recommended. Electronically Signed: Nikita Gilmore MD at 11:17 EDT ,
--- NOTE | 2022-08-08 19:34 | CA.SCORE ---
Calcium Scoring Date of Study:: 08/08/22 Indications Indications: HLD, Family History of CAD Coronary Calcium Scoring: High-resolution Computed Tomographic imaging of the chest was performed on 08/08/2022 with particular attention paid to the coronary arteries. Images from the examination were analyzed for the presence and extent of coronary artery calcification , using coronary calcium quantification software. The patient tolerated the procedure well and there were no complications. The results of the coronary calcification analysis are provided below. Findings Coronary Artery Left Main (LM): 0 Left Anterior Descending (LAD): 6.36 Left Circumflex (LCX): 3.58 Right Coronary Artery (RCA): 0.80 Total Agatston Score: 10.74 Percentile Ranking: According to prepublished reference tables approximately 25% of patients of the same gender and/or similar age had the same and/or lower scores. Calcium Scoring Interpretation: 0 No identifiable atherosclerotic plaque. Very low cardiovascular disease risk. <5% chance of presence coronary artery disease A Negative Examination 1-10 Minimal Plaque burden. Significant coronary artery disease very unlikely. 11-100 Mild plaque burden. Likely mild or minimal coronary atherosclerosis. 101-400 Moderate plaque burden Moderate non-obstructive coronary artery disease highly likely. Over 400 Extensive plaque burden. High likelihood of at least one significant coronary stenosis (>50% diameter) Calcium Score: 11 - 100 Likely mild or minimal coronary stenosis Conclusion: Continue cardiovascular risk factor evaluation care as deemed appropriate. This note was generated using a voice recognition system and there may be incorrect words, spelling or punctuation that were not noted when reviewing the office note prior to saving.
== END | disposition home or self-care (01) ==
PROVIDERS: PCP Internal Medicine; Referring Provider Internal Medicine; Visit Provider Internal Medicine
DX: E78.00 Pure hypercholesterolemia, unspecified (principal); Z84.89 Family history of other specified conditions
CPT/HCPCS: 75571; 76380

== ENCOUNTER → 2023-03-06 | Outpatient (CLI) | payer MEDICARE, OTHER, SELFPAY ==
--- NOTE | 2023-03-06 07:48 | US_ITS ---
STUDY: ABDOMINAL ULTRASOUND - RIGHT UPPER QUADRANT REASON FOR VISIT: Female, 77 years old Fatty liver TECHNIQUE: Ultrasound evaluation of the right upper quadrant was performed with real-time and static bal-scale imaging. TECHNICAL QUALITY: Adequate. COMPARISON: Comparison is made with prior sonogram dated February 20, 2022. FINDINGS: Liver: The liver measures 16.3 cm. There is increased echogenicity consistent with fatty infiltration. The bile ducts are within normal limits. There is hepatic color flow. The direction of portal flow is hepatopetal. There is no demonstrated mass lesion. Gallbladder: Normal distended gallbladder. The gallbladder wall measures 2.0 mm. There is a negative sonographic Arroyo''s sign. There is no pericholecystic fluid. There is a solitary echogenic gallstone within the gallbladder. The gallstone measures 1.1 cm x 0.9 cm x 0.6 cm. Common Bile Duct (C.B.D.): The common bile duct measures 5 mm. Pancreas: Normal size of the head, body and tail of the pancreas. There is normal echogenicity of the pancreas. There is no demonstrated pancreatic mass or cyst. Right Kidney: Normal size of the right kidney. The right kidney measures 11.3 cm x 5.4 cm x 4.2 cm. Normal renal cortex. The right cortex measures 1.1 cm. There is no demonstrated renal mass or cyst. There is no right hydronephrosis. IMPRESSION: Fatty infiltration of the liver. Solitary gallstone. Electronically Signed: Nikita Gilmore MD at 9:44 EDT , STUDY: ABDOMINAL ULTRASOUND - ELASTOGRAPHY REASON FOR VISIT: Female, 77 years old. Fatty infiltration of the liver. TECHNIQUE: Liver stiffness measurements were obtained on a [employer] 85 ultrasound machine using a CA 1-7 probe following the SRU guidelines. 3 measurements were obtained using a 2-D-SWE method. TheIQR/M was 16% suggesting a quality data set. TECHNICAL QUALITY: Adequate. COMPARISON: None. FINDINGS: Liver: Fatty infiltration of the liver. Median liver stiffness measured 5.3 kPa. Abdomen: There is no demonstrated mass lesion. US/ABD Limited w/ Elastography IMPRESSION: Liver stiffness measures 5.3 kPa compatible with F0-F1 (Normal to mild liver fibrosis) Metavir score. Electronically Signed: Nikita Gilmore MD at 9:46 EDT ,
== END | disposition home or self-care (01) ==
PROVIDERS: PCP Internal Medicine; Referring Provider Internal Medicine; Visit Provider Internal Medicine
DX: K76.0 Fatty (change of) liver, not elsewhere classified (principal)
CPT/HCPCS: 76705; 76981

== ENCOUNTER → 2023-04-23 | Outpatient (CLI) | payer MEDICARE, OTHER, SELFPAY ==
--- NOTE | 2023-04-23 09:41 | BI_ITS ---
MAMMOGRAPHY - BILATERAL SCREENING REASON FOR EXAM: Female, 77 years old. Routine annual screening examination. PERTINENT HISTORY: Grandmother with breast cancer. Aunts with breast cancer. History of prior left stereotactic breast biopsy. TECHNIQUE: Digital bilateral breast casie (3D mammographic acquisition) in the CC and MLO projections. 2-D mediolateral oblique (MLO) and craniocaudad (CC) views of both breasts were obtained. CAD: Full Field Digital Mammography with Computer Added Detection was performed. COMPARISON: Comparison is made with prior examination dated April 22, 2022 and April 19, 2021. FINDINGS: Breast Composition: The breasts are heterogeneously dense, which may obscure small masses. There are no dominant masses or suspicious calcifications. Stable small benign-appearing bilateral axillary lymph nodes. A tissue clip marker is once again seen in the retroareolar region of the left breast. No other significant abnormalities are identified. There has been no significant change since the prior study. BI/SCRN MAMM (CAD)W/CASIE BILAT IMPRESSION: Stable bilateral screening mammogram. Yearly follow-up mammogram recommended. (A) ASSESSMENT CATEGORY: BIRADS Category 2: Benign. A letter regarding these results will be sent to the patient by the facility within 30 days. Approximately 10% of breast cancers are not detected by mammography. A normal mammogram should not delay biopsy of a clinically suspicious abnormality. [id number] Electronically Signed: Nikita Gilmore MD at 10:36 EDT ,
== END | disposition home or self-care (01) ==
LOC: OPBI 09:40
PROVIDERS: PCP Internal Medicine; Referring Provider Internal Medicine; Visit Provider Internal Medicine
DX: Z12.31 Encounter for screening mammogram for malignant neoplasm of breast (principal)
CPT/HCPCS: 77063; 77067

== ENCOUNTER → 2023-12-07 | Outpatient (CLI) | payer MEDICARE, OTHER, SELFPAY ==
--- NOTE | 2023-12-07 13:58 | ECHOD_ITS ---
Reason For Study: PULMONARY HYPERTENSION Procedure This was a 2D Doppler, Color Flow transthoracic echocardiogram. Exam performed in department. Left Ventricle Normal LV size. Left ventricular systolic function is normal. The estimated ejection fraction is 70 %. Stage 1 diastolic dysfunction. No regional wall motion abnormalities noted. Right Ventricle Normal RV size. Normal systolic function. Atria Normal left atrium. Normal right atrium. Mitral Valve There is moderate mitral annular calcification. Tricuspid Valve Normal tricuspid valve. Mild (1+) tricuspid valve insufficiency. Pulmonary artery systolic pressure is 40 mmHg. Aortic Valve Trisinus/trileaflet aortic valve. Pulmonic Valve Normal pulmonic valve. Great Vessels Normal aortic root. The pulmonary artery is normal size. Normal inferior vena cava. Pericardium/Pleural No pericardial effusion. Medication 22 gauge I.V. with prn adaptor inserted into right arm. Performed a rapid injection of agitated mix of 9 cc saline and 1cc air to assess for atrial septal defect. MMode/2D Measurements & Calculations LVIDd: 4.1 cm IVSd: 0.85 cm Ao root diam: 3.4 cm LVIDs: 2.5 cm LVPWd: 0.83 cm RVDd: 3.3 cm FS: 39.0 % LAV(MOD-bp): 31.0 ml LVAd ap4: 22.1 cm2 SV(MOD-sp4): 40.1 ml LAV(MOD-bp) Indexed: 17.9 ml/m2 LVLd ap4: 6.7 cm LAV(MOD-sp2): 29.8 ml EDV(MOD-sp4): 59.6 ml LAV(MOD-sp4): 32.1 ml EDV(sp4-el): 62.1 ml LVAs ap4: 11.0 cm2 LVLs ap4: 5.4 cm ESV(MOD-sp4): 19.5 ml ESV(sp4-el): 19.1 ml EF(MOD-sp4): 67.2 % EF(sp4-el): 69.3 % SV(sp4-el): 43.1 ml LA A4 area: 13.9 cm2 LA dimension(2D): 3.4 cm RA A4 area: 12.5 cm2 TAPSE: 2.3 cm Time Measurements MV dec time: 0.35 sec Doppler Measurements & Calculations MV E max kristopher: 57.7 cm/sec Lat Peak E' Kristopher: 8.7 cm/sec Med Peak E' Kristopher: 9.2 cm/sec MV A max kristopher: 101.2 cm/sec E/E' lat: 6.6 E/E' med: 6.2 MV E/A: 0.57 Ao V2 max: 143.9 cm/sec LV V1 max: 124.5 cm/sec PA V2 max: 97.0 cm/sec Ao max P.3 mmHg LV V1 max P.2 mmHg TR max kristopher: 256.7 cm/sec TR max P.9 mmHg ECHO/Echo Complete Interpretation Summary Normal LV size. Left ventricular systolic function is normal. The estimated ejection fraction is 70 %. Stage 1 diastolic dysfunction. Pulmonary artery systolic pressure is 40 mmHg. Ordering Physician: Jace Summers Referring Physician: RIMMA WELLS Performed By: Luzmaria Rocha RDCS
== END | disposition home or self-care (01) ==
LOC: CVS 13:57
PROVIDERS: PCP Internal Medicine; Referring Provider Internal Medicine Cardiovascular Disease; Visit Provider Internal Medicine Cardiovascular Disease
DX: R06.00 Dyspnea, unspecified (principal); I27.20 Pulmonary hypertension, unspecified
CPT/HCPCS: 93306; A4216

== ENCOUNTER 2023-12-15 17:15 | Inpatient (IN) | payer MEDICARE, OTHER, SELFPAY ==
[2023-12-15] VITALS (12 sets, daily range): BP systolic 118–156; BP diastolic 55–68; PULSE 63–97; RESP 17–22; TEMP 36.7–39.4; O2SAT 88–95; BMI 31.3; BMI 28.9
--- NOTE | 2023-12-15 17:44 | EX.ED.DYSGE1 ---
HPI History of Present Illness Chief Complaint: Fever Informant: patient and EMS Narrative Narrative: 78-year-old female presenting to the emergency room with chief complaint of fever. Patient states that on Thursday she developed fever generalized bodyaches and some nausea. She notes nasal congestion with a very intermittent cough. She has chronically had a swishing noise in her ears when she turns her head that seems to be made worse with the fever over the past 3 days. She states that she has seen ENT for it. She states nothing has been found to help. Patient denies any vomiting or diarrhea. She denies any dyspnea. No rashes. She notes the anterior part of her neck is sore but also my whole body hurts . She denies any immunosuppression. She states that she is treated for hypertension and GERD. Patient has been taking Tylenol for fever and states that her last dose was around 11a or 12p today. [facility] Medical History Allergic rhinitis Asthma Bradycardia Chronic sinusitis Class 1 obesity DDD (degenerative disc disease) Dysthymic disorder Essential hypertension GERD (gastroesophageal reflux disease) Hyperlipidemia NAFLD (nonalcoholic fatty liver disease) Osteoporosis Psoriatic arthritis Pulmonary artery hypertension Vitamin D deficiency Home Medications cyanocobalamin (vitamin B-12) 1,000 mcg/mL injection solution 100 mcg subcut Q30D supplement 06/30/17 [History Last Taken 06/21/17] cholecalciferol (vitamin D3) 25 mcg (1,000 unit) capsule 25 mcg PO DAILY 09/10/21 [History Last Taken Unknown] losartan 50 mg tablet 50 mg PO DAILY #90 tabs 04/15/23 [Rx Last Taken Unknown] hydrochlorothiazide 12.5 mg tablet See Rx Instructions .Route .COMPLEX #90 tabs 07/31/23 [Rx Last Taken Unknown] amlodipine 5 mg tablet See Rx Instructions .Route .COMPLEX #90 tabs 11/03/23 [Rx Last Taken Unknown] fluticasone fur. 200 mcg-umeclid 62.5 mcg-vilant 25 mcg inhalat.powder (Trelegy Ellipta) 1 inh inhalation DAILY 11/03/23 [History Last Taken Unknown] omeprazole 20 mg capsule,delayed release 20 mg PO DAILY 11/03/23 [History Last Taken Unknown] Allergy/AdvReac Type Severity Reaction Status Date / Time ezetimibe [From Zetia] AdvReac myalgia Verified 12/15/23 17:18 Edkifio-SYH-FvL Reductase AdvReac myalgia Verified 12/15/23 17:18 Inhibitor Family History Father Colon cancer Mother CAD (coronary artery disease) Brother Colon cancer Sister CAD (coronary artery disease) Sudden cardiac Myocardial infarction Surgical History History of carpal tunnel release Social History Smoking Status: Never smoker alcohol intake: never substance use type: does not use caffeine: Yes Type: coffee Number of servings: 2 what type of physical activity do you participate in: none seatbelt use: always do you feel safe at home: Yes ROS ROS ED Constitutional Constitutional ED: Reports chills and fever(s); Denies weight loss Eyes Eyes: Denies change in vision or diplopia ENT ENT ED: Reports other Details: Nasal congestion. Swooshing noise in ear ; Denies ear pain, rhinorrhea or sore throat Cardiovascular Cardiovascular: Denies chest pain, orthopnea, palpitations or racing heartbeat Respiratory/Chest Respiratory/Chest: Denies cough, dyspnea or orthopnea Gastrointestinal Gastrointestinal: Reports nausea; Denies abdominal pain, diarrhea or vomiting Genitourinary Genitourinary ED: Denies dysuria, hematuria or urinary frequency Musculoskeletal Musculoskeletal: Reports myalgias; Denies arthralgias Integumentary Denies abscess or rash Neurologic Neurologic: Denies headache(s) or weakness Psychiatric Psychiatric: Denies anxiety, depression, suicidal ideation or suicidal thoughts Endocrine Endocrinology: Denies polydipsia, polyphagia or polyuria Allergic/Immunologic Allergic/Immunologic ED: Denies mouth swelling, tongue swelling or urticaria EXAM Physical Exam Const Vital Signs: 12/15/23 17:18 12/15/23 17:21 12/15/23 17:21 Temperature 102.9 F H 102.9 F H Temperature Source Oral Oral Pulse Rate 90 90 Respiratory Rate 17 17 Respiratory Effort Short of Breath Respiratory Pattern Blood Pressure 156/60 H 156/60 H Blood Pressure Mean 92 92 Pulse Ox 93 93 Oxygen Delivery Method Room Air Room Air Oxygen Flow Rate (L/min) 12/15/23 19:04 12/15/23 17:21 12/15/23 17:25 Temperature Temperature Source Pulse Rate 97 Respiratory Rate 20 H Respiratory Effort Respiratory Pattern Blood Pressure 142/68 H Blood Pressure Mean 92 Pulse Ox 93 88 93 Oxygen Delivery Method Nasal Cannula Room Air Nasal Cannula Oxygen Flow Rate (L/min) 2 2 12/15/23 19:19 12/15/23 20:47 12/15/23 20:34 Temperature 101.3 F H Temperature Source Oral Pulse Rate 73 73 Respiratory Rate 18 22 H Respiratory Effort Respiratory Pattern Tachypnea Blood Pressure 132/57 H Blood Pressure Mean 82 Pulse Ox 95 Oxygen Delivery Method Nasal Cannula Oxygen Flow Rate (L/min) 2 Positive well nourished and well developed General Appearance ED: well developed HEENT Reports normocephalic, head/scalp atraumatic and moist mucous membranes Eyes PERRL and EOMs intact bilaterally Neck no lymphadenopathy, supple and no JVD Resp normal respiratory effort and clear to auscultation bilaterally Cardio regular rate, regular rhythm and no murmurs GI normal to inspection, nondistended, normoactive bowel sounds and non-tender Palpation: soft Back/Spine no CVA tenderness and normal ROM Extremity normal to inspection General Extremety ED: Negative for edema General Extremity: Negative for edema Neuro oriented x3 and CN's II-XII intact bilaterally Sensorium / Orientation: alert Motor Exam: strength 5/5 throughout Psych mental status grossly normal Mood & Affect: Negative for depressed or tearful Skin no rashes or lesions noted and no wounds MDM MDM MDM Narrative Medical decision making narrative: Plan depend interpretation of the chest x-ray is chronic changes of the right upper lobe as well as some infiltrative changes particular at the bases. White count is 12.4 lactic acid 1.5 slight elevation of bilirubin 1.4 with a direct bilirubin 0.41 AST of 80 ALT 68 urinalysis does not show overt infection and in fact is more contaminated. I went back and reviewed the patient's prior radiologic imaging. She has had this change in the right upper lobe over the past several years on various modalities. Went ahead and obtained a CT of the chest demonstrates multiple areas of infiltrative changes particularly in the right upper lobe left lower lung. I also obtained a CT of the sinuses as the patient was saying that her sinuses were very clogged. I do not see any evidence of sinusitis there. Nursing notes that at 1 point the patient became significantly dyspneic her oxygen levels down into the 88 range on room air and she received supplemental oxygen. I then ordered a breathing treatment. She also received Rocephin and azithromycin after blood cultures were obtained. Patient's fever is down and she is feeling better however given her symptomology and her findings her plan will be admission. History & Record Review Discussion w/independent historian: Patient and Family Lab Data Attestation: I reviewed the patient's lab results. Labs: Laboratory Results - last 24 hr 12/15/23 12/15/23 17:28 18:05 WBC 12.4 H RBC 4.30 Hgb 13.5 Hct 40.3 MCV 93.7 MCH 31.4 MCHC 33.5 RDW Std Deviation 43.0 RDW Coeff of Eze 12.5 Plt Count 209 MPV 11.1 Immature Gran % (Auto) 0.300 Neut % (Auto) 87.4 H Lymph % (Auto) 7.7 L Catron % (Auto) 3.6 Eos % (Auto) 0.4 Baso % (Auto) 0.6 Absolute Neuts (auto) 10.8 H Absolute Lymphs (auto) 0.95 Nucleated RBC % 0 Sodium 137 Potassium 3.3 L Chloride 104 Carbon Dioxide 26.0 Anion Gap 7 BUN 14 Creatinine 0.97 Estim Creat Clear Calc 46.85 Est GFR (MDRD) Af Amer 72 Est GFR (MDRD) Non-Af 59 L BUN/Creatinine Ratio 14.4 Glucose 126 H Lactic Acid 1.5 Calcium 9.2 Magnesium 2.0 Total Bilirubin 1.40 H Direct Bilirubin 0.41 H AST 80 H ALT 68 H Alkaline Phosphatase 95 Total Protein 7.6 Albumin 3.4 Globulin 4.2 Urine Color Yellow Urine Clarity Clear Urine pH 7.0 Ur Specific Rosebud 1.010 Urine Protein Negative Urine Glucose (UA) Normal Urine Ketones 50 H Urine Occult Blood 10 H Urine Nitrite Negative Urine Bilirubin Negative Urine Urobilinogen Normal Ur Leukocyte Esterase 500 H Urine RBC 0 SEEN Urine WBC 5-10 SEEN Ur Squamous Epith Cells 5-10 SEEN Urine Bacteria 1+ Urine Mucus 0 SEEN Radiography Diagnostic Testing: Clinical Impression(s) from Imaging Studies Chest X-Ray 12/15/23 18:30 IMPRESSION: Right upper and lower lobe infiltrates in association with partial collapse of the right upper lobe possibly due to mucous plugging. Electronically Signed: Saroj Willingham MD at 19:16 EST Reading Location ID and State: [facility] / [place] Tel [phone], Service support , Chest CT 12/15/23 19:23 IMPRESSION: Bilateral predominantly interstitial infiltrates in both upper and lower lobes most likely viral in etiology possibly due to Covid. There is more extensive consolidation in the right upper lobe with associated partial collapse. There is also mild subsegmental atelectasis or infiltrate in the right lower lobe. Electronically Signed: Saroj Willingham MD at 20:25 EST Reading Location ID and State: [facility] / [place] Tel [phone], Service support , Facial/Sinus 12/15/23 19:23 IMPRESSION: Minor bilateral ethmoid and right maxillary sinus disease likely chronic. No evidence for facial bone fracture or acute osteomyelitis Electronically Signed: Saroj Willingham MD at 20:13 EST Reading Location ID and State: [facility] / [place] Tel [phone], Service support , Discharge Plan Dx/Rx/DC Orders Clinical Impression: Acute hypoxemic respiratory failure, Pneumonia Disposition Disposition: Acute Care Hospital [facility] Discharge Date/Time: 12/15/23 22:37
[2023-12-15] MEDS: 0.9% Normal Saline (1000mL) 1,000 ML 1000 ML IV (18:08)
[2023-12-15] MEDS: Ibuprofen 400 MG Tablet 800 MG PO (18:08)
[2023-12-15 18:11] LABS: Mucous, Urine 0 SEEN /hpf (<or=2+); Red Blood Cells-Urine 0 SEEN /hpf (0-5)
[2023-12-15 18:14] LABS: AST(SGOT) 80 U/L (15-37); Alanine Aminotransfer ALT/SGPT 68 U/L (13-56); Albumin, Serum 3.4 g/dL (3.2-5.0); Alkaline Phosphatase 95 U/L (45-117); Anion Gap 7 (5-15); BUN 14 mg/dL (7-18); BUN/Creat Ratio 14.4 RATIO (10-20); Bilirubin, Direct 0.41 mg/dL (0.00-0.30); Calcium,Total 9.2 mg/dL (8.5-10.1); Chloride 104 mmol/L (98-107); Creatinine, Serum 0.97 mg/dL (0.55-1.02); EST Glomerular Filtration Rate 59 mL/min (>60); Est Glom Filt Rate - Afr Amer 72 mL/min (>60); Estimated Creatinine Clearance 46.85 ml/min; Globulin 4.2 g/dL (2.2-4.2); Glucose 126 mg/dL (74-106); Lactic Acid 1.5 mmol/L (0.4-1.9); Potassium 3.3 mmol/L (3.5-5.1); Protein, Total 7.6 g/dL (6.4-8.2); Sodium Level 137 mmol/L (136-145)
[2023-12-15 18:15] LABS: Color, Urine Yellow (Yellow); Glucose, Dipstick Normal (Normal); Ketone-Dipstick 50 mg/dl (Negative); Leukocyte Esterase-Dipstick 500 /ul (Negative); Nitrite-Dipstick Negative (Negative); Occult Blood-Urine 10 /ul (Negative); Protein-Dipstick Negative (Negative); Urine Bilirubin Dipstick Negative (Negative); Urine Clarity Clear (Clear); Urine Urobilinogen Normal (Normal)
[2023-12-15 18:19] LABS: Absolute Lymphocyte Count 0.95 X10^3/uL (0.83-4.51); Absolute Neutrophil Count 10.8 X10^3/uL (2.0-7.7); Basophil# 0.07 X10^3/uL; Basophil% 0.6 % (0-1); Eosinophil# 0.05 X10^3/uL; Eosinophils% 0.4 % (0-5); Hematocrit 40.3 % (37-47); Hemoglobin 13.5 g/dL (12.0-15.0); Lymphocyte # 0.95 X10^3/ul (0.83-4.51); Lymphocyte % 7.7 % (19-41); Mean Corp Hgb Conc 33.5 g/dL (32-36); Mean Corpuscular Hgb 31.4 pg (27.0-32.0); Mean Corpuscular Volume 93.7 fL (81-99); Mean Platelet Vol. 11.1 fl (6.2-12.0); Monocyte# 0.44 X10^3/uL; Monocyte% 3.6 % (0-10); NRBC Flagged by Analyzer 0 % (0-5); Neutrophil # 10.83 X10^3/uL (2.7-7.7); Neutrophil % 87.4 % (47-70); Platelet Count 209 K/mm3 (150-450); RBC Distribution Width CV 12.5 % (11.6-14.6); White Blood Count 12.4 K/mm3 (4.4-11.0)
[2023-12-15 18:24] LABS: Bacteria 1+ /hpf (None Seen); Squamous Epithelial Cells - UA 5-10 SEEN /hpf (5-10); White Blood Cells 5-10 SEEN /hpf (0-5)
--- NOTE | 2023-12-15 18:30 | RAD_ITS ---
STUDY: X-RAY CHEST REASON FOR EXAM: Female, 78 years old. fever TECHNIQUE: AP portable COMPARISON: None. FINDINGS: There is infiltrate in the right lower lobe as well as partial collapse of the right upper lobe and association with upper lobe infiltrate.. There is no demonstrated pleural abnormality. Normal size heart. Normal mediastinum and marilee. Normal visualized pulmonary arteries. Mildly calcified aortic arch and descending thoracic aorta. Dorsal spine demonstrates mild degenerative change. Normal visualized ribs, clavicles, and shoulders. There is no demonstrated abnormality of the visualized soft tissue structures of the upper abdomen. RAD/Chest 1 View (Portable) IMPRESSION: Right upper and lower lobe infiltrates in association with partial collapse of the right upper lobe possibly due to mucous plugging. Electronically Signed: Saroj Willingham MD at 19:16 EST ,
--- NOTE | 2023-12-15 19:23 | CT_ITS ---
INDICATION: abnormal chest xray EXAMINATION: CT CHEST WITH CONTRAST - CT Chest W/ Contrast Injection TECHNIQUE: Helically acquired images were obtained of the chest following IV contrast. A radiation dose optimization technique was used for this scan. IV Contrast dosage and agent: COMPARISON: Chest December 15, 2023 FINDINGS: LUNGS, PLEURA AND LARGE AIRWAYS: Reticulonodular interstitial thickening is seen in the right lower lobe with patchy and confluent areas of groundglass opacity likely inflammatory. There is associated mild subsegmental atelectasis or infiltrate at the right base. There are also very tiny reticulonodular interstitial densities in the left upper and lower lobes with multifocal groundglass opacity. Mild reticulonodular interstitial thickening also seen in the right middle lobe and more severe in the right upper lobe with confluent groundglass opacities. There is also partial collapse of the right upper lobe with air bronchograms. No pleural effusion or thickening. No pneumothorax. THYROID: No thyroid lesions. HEART AND PERICARDIUM: Borderline cardiomegaly and mild coronary artery calcification. No pericardial effusion. VESSELS: Mild atherosclerotic change of the aorta without evidence for aneurysm. No aortic dissection. No obvious central pulmonary embolism although this study was not performed with the pulmonary embolism protocol. MEDIASTINUM AND YEISON: No mediastinal or hilar adenopathy. Esophagus is unremarkable. Small hiatal hernia is noted UPPER ABDOMEN: Nonspecific fatty infiltrated liver BONES: Dorsal spine demonstrates arthritic changes. No suspicious lytic or blastic abnormality. CT/Chest WITH Contrast IMPRESSION: Bilateral predominantly interstitial infiltrates in both upper and lower lobes most likely viral in etiology possibly due to Covid. There is more extensive consolidation in the right upper lobe with associated partial collapse. There is also mild subsegmental atelectasis or infiltrate in the right lower lobe. Electronically Signed: Saroj Willingham MD at 20:25 EST Reading Location ID and State: [facility] / [place] Tel , Service support ,
--- NOTE | 2023-12-15 19:23 | CT_ITS ---
STUDY: CT FACIAL BONES WITHOUT CONTRAST REASON FOR EXAM: Female, 78 years old. fever RADIATION DOSAGE (If Supplied By Facility): CTDIvol = ( 17.33 ) mGy, DLP = ( 1136.58 ) mGycm TECHNIQUE: The patient was scanned in a multi detector CT scanner. Sagittal and coronal images were reconstructed. Individualized dose optimization techniques were used for this CT. COMPARISON: None. FINDINGS: Normal soft tissue structures. Normal orbital paulson and orbital contents. Normal nasal bones and anterior nasal spine. Normal facial bones. There is no demonstrated fracture. Minor bilateral ethmoid and mild right maxillary sinus mucosal thickening. CT/Sinus/Facial Bone IMPRESSION: Minor bilateral ethmoid and right maxillary sinus disease likely chronic. No evidence for facial bone fracture or acute osteomyelitis Electronically Signed: Saroj Willingham MD at 20:13 EST ,
[2023-12-15] MEDS: Ceftriaxone 1 GM/50 ML BAG IV (20:18)
[2023-12-15] MEDS: Ipratropium/Albuterol Sulfate 3 ML AMPUL.NEB INHALATION (20:34)
[2023-12-15] MEDS: Azithromycin 500 MG in Dextrose 5%-Water (250mL Bag) 250 ML 250 MG IV (20:50)
--- NOTE | 2023-12-15 21:04 | PCM.HP.STD ---
HPI - General General Date of Admission: 12/15/23 Date of Service: 12/15/23 Chief Complaint: Fever, chills, body aches, cough/dyspnea. HPI Narrative The patient is a 78 y/o F w/ PMHx: Obesity, NAFLD, Asthma w/ Allergic rhinitis, Psoriatic arthritis, HTN, HLD, GERD who presents to the [facility] ED on 12/15/23 with history of recent onset Thursday body aches, nausea without emesis, nasal congestion, intermittent nonproductive cough with fevers worse with increased postnasal drip within the ED evidence of mild tachypnea and onset of dyspnea prompting eventual ED evaluation. In the ED she had initially denied dyspnea and marked cough but upon evaluation she states she suddenly has felt more short of breath. She denies any recent illness in her family including her with whom she lives. Workup in the ED included Tmax 102.9, most recently 101.3, heart rate 90, BP 156/60, respiratory rate 17, initially 93% on room air however desaturated down to 88% with improvement to 93% on 2 L nasal cannula, CBC with WBC 12.4, hemoglobin 13.5, platelet 209 with left shift, CMP with potassium 3.3, glucose 126, lactic acid 1.5, T. bili 1.40, direct bili 0.41, AST/ALT 80/68, urinalysis with ketone 50, occult blood 10, negative nitrite, leukocyte Estrace 500 with urine to WBCs 5-10 however urine squamous epithelial cells also 5-10 with 1+ urine bacteria, chest x-ray with right upper and lower lobe infiltrates in association with partial collapse of the right upper lobe possibly due to mucous plugging, CT chest with bilateral predominantly and residual infiltrates in both upper and lower lobes most likely viral possibly COVID more extensive consolidation right upper lobe with associated partial collapse as well as mild subsegmental atelectasis or infiltrate in the right lower lobe, CT facial with minor bilateral ethmoid and right maxillary sinus disease likely chronic with no evidence for facial bone fracture or acute osteomyelitis, blood culture x 2 pending per ED, rapid SARS COVID/influenza/RSV PCR negative. In the ED patient administered DuoNeb therapy, Motrin 800 mg p.o. x 1, 1 L normal saline bolus as well as IV azithromycin and IV Rocephin. [facility] Medical History Allergic rhinitis Asthma Bradycardia Chronic sinusitis Class 1 obesity DDD (degenerative disc disease) Dysthymic disorder Essential hypertension GERD (gastroesophageal reflux disease) Hyperlipidemia NAFLD (nonalcoholic fatty liver disease) Osteoporosis Psoriatic arthritis Pulmonary artery hypertension Vitamin D deficiency Home Medications cyanocobalamin (vitamin B-12) 1,000 mcg/mL injection solution 100 mcg subcut Q30D supplement 06/30/17 [History Last Taken 06/21/17] cholecalciferol (vitamin D3) 25 mcg (1,000 unit) capsule 25 mcg PO DAILY 09/10/21 [History Last Taken Unknown] losartan 50 mg tablet 50 mg PO DAILY #90 tabs 04/15/23 [Rx Last Taken Unknown] hydrochlorothiazide 12.5 mg tablet See Rx Instructions .Route .COMPLEX #90 tabs 07/31/23 [Rx Last Taken Unknown] amlodipine 5 mg tablet See Rx Instructions .Route .COMPLEX #90 tabs 11/03/23 [Rx Last Taken Unknown] fluticasone fur. 200 mcg-umeclid 62.5 mcg-vilant 25 mcg inhalat.powder (Trelegy Ellipta) 1 inh inhalation DAILY 11/03/23 [History Last Taken Unknown] omeprazole 20 mg capsule,delayed release 20 mg PO DAILY 11/03/23 [History Last Taken Unknown] Allergy/AdvReac Type Severity Reaction Status Date / Time ezetimibe [From Zetia] AdvReac myalgia Verified 12/15/23 17:18 Rzbckos-AEZ-ZoH Reductase AdvReac myalgia Verified 12/15/23 17:18 Inhibitor Family History Father Colon cancer Mother CAD (coronary artery disease) Brother Colon cancer Sister CAD (coronary artery disease) Sudden cardiac Myocardial infarction Surgical History History of carpal tunnel release Social History Smoking Status: Never smoker alcohol intake: never substance use type: does not use caffeine: Yes Type: coffee Number of servings: 2 what type of physical activity do you participate in: none seatbelt use: always do you feel safe at home: Yes ROS ROS Narrative Admission Review of Systems: CONSTITUTIONAL: No weight loss, + fever, chills, weakness or fatigue. HEENT: + Congestion, rhinorrhea, postnasal drip. Eyes: No visual loss, blurred vision, double vision or yellow sclerae. Ears, Nose, Throat: No hearing loss, sneezing. SKIN: No rash or itching, lesions, wounds. CARDIOVASCULAR: No chest pain, chest pressure or chest discomfort, palpitations, edema, orthopnea, syncopal events. RESPIRATORY: + Dyspnea, productive cough. No marked wheezing or hemoptysis. GASTROINTESTINAL: + anorexia, nausea. No vomiting or diarrhea, abdominal pain, melena, BRBPR. GENITOURINARY: No dysuria, frequency, urgency or retention. NEUROLOGICAL: + headache. No dizziness, syncope, paralysis, ataxia, numbness or tingling in the extremities, focal weakness, change in bowel or bladder control, seizure. MUSCULOSKELETAL: + muscle, back pain, joint pain or stiffness. HEMATOLOGIC: No anemia, bleeding or bruising. LYMPHATICS: No enlarged nodes. No history of splenectomy. PSYCHIATRIC: + History of dysthymia noted in chart. ENDOCRINOLOGIC: + reports of sweating, cold or heat intolerance. No polyuria or polydipsia. ALLERGIES: + History of asthma and allergic rhinitis. Vital Signs Vital Signs Vital Signs: 12/15/23 17:18 12/15/23 17:21 12/15/23 17:21 Temperature 102.9 F H 102.9 F H Temperature Source Oral Oral Pulse Rate 90 90 Respiratory Rate 17 17 Respiratory Effort Short of Breath Blood Pressure 156/60 H 156/60 H Blood Pressure Mean 92 92 Pulse Ox 93 93 Oxygen Delivery Method Room Air Room Air Oxygen Flow Rate (L/min) 12/15/23 19:04 12/15/23 17:21 12/15/23 17:25 Temperature Temperature Source Pulse Rate 97 Respiratory Rate 20 H Respiratory Effort Blood Pressure 142/68 H Blood Pressure Mean 92 Pulse Ox 93 88 93 Oxygen Delivery Method Nasal Cannula Room Air Nasal Cannula Oxygen Flow Rate (L/min) 2 2 12/15/23 19:19 12/15/23 20:47 Temperature 101.3 F H Temperature Source Oral Pulse Rate 73 Respiratory Rate 18 Respiratory Effort Blood Pressure 132/57 H Blood Pressure Mean 82 Pulse Ox 95 Oxygen Delivery Method Nasal Cannula Oxygen Flow Rate (L/min) 2 Weight Weight: 171 lb 1.259 oz Body Mass Index (BMI) 31.3 Physical Exam Narrative Physical Examination: General: Awake, alert, oriented x 3 and cooperative, seated upright in the ED bed, notable diaphoresis, fever coming down. Skin: Normal color, normal turgor, no icterus, no cyanosis. HEENT: AT/NC, EOMI, PERRLA, dry MM, no carotid bruits or JVD noted. Lungs: Diminished, coarse bilaterally, greater bilateral upper mcelroy posteriorly, mildly increased respiratory rate but no distress, no wheezing. Heart: Mildly tachycardic with regular rhythm; no gallop, rub audible. Abdomen: Soft, obese, NTTP, ND, hyperactive BS, no markedly appreciated HSM with history of underlying nonalcoholic fatty liver disease of note. Extremities: No cyanosis, no clubbing, no marked peripheral edema Neurological: Patient awake, alert, oriented as noted, cognitive function intact; pupils equally reactive to light and accommodation, cranial nerves II-XII grossly normal, moving all 4 extremities, no focal deficits, strength moderately to severely globally decreased secondary to acute presentation. Psychiatric: Affect appears fatigued, ill-appearing, no acute evidence of depressive or anxiety feelings but does have chart reported history of dysthymia. Results Lab / Micro Data 12/15/23 17:28 12/15/23 17:28 Labs: Laboratory Results - last 24 hr 12/15/23 17:28: WBC 12.4 H, RBC 4.30, Hgb 13.5, Hct 40.3, MCV 93.7, MCH 31.4, MCHC 33.5, RDW Std Deviation 43.0, RDW Coeff of Eze 12.5, Plt Count 209, MPV 11.1, Immature Gran % (Auto) 0.300, Neut % (Auto) 87.4 H, Lymph % (Auto) 7.7 L, [place] % (Auto) 3.6, Eos % (Auto) 0.4, Baso % (Auto) 0.6, Absolute Neuts (auto) 10.8 H, Absolute Lymphs (auto) 0.95, Nucleated RBC % 0, Sodium 137, Potassium 3.3 L, Chloride 104, Carbon Dioxide 26.0, Anion Gap 7, BUN 14, Creatinine 0.97, Estim Creat Clear Calc 46.85, Est GFR (MDRD) Af Amer 72, Est GFR (MDRD) Non-Af 59 L, BUN/Creatinine Ratio 14.4, Glucose 126 H, Lactic Acid 1.5, Calcium 9.2, Total Bilirubin 1.40 H, Direct Bilirubin 0.41 H, AST 80 H, ALT 68 H, Alkaline Phosphatase 95, Total Protein 7.6, Albumin 3.4, Globulin 4.2 12/15/23 18:05: Urine Color Yellow, Urine Clarity Clear, Urine pH 7.0, Ur Specific [place] 1.010, Urine Protein Negative, Urine Glucose (UA) Normal, Urine Ketones 50 H, Urine Occult Blood 10 H, Urine Nitrite Negative, Urine Bilirubin Negative, Urine Urobilinogen Normal, Ur Leukocyte Esterase 500 H, Urine RBC 0 SEEN, Urine WBC 5-10 SEEN, Ur Squamous Epith Cells 5-10 SEEN, Urine Bacteria 1+, Urine Mucus 0 SEEN Micro: Microbiology 12/15/23 18:13 Mucosa - Nose SARS-CoV-2, Influenza & RSV (PCR) - Final Imaging Radiology Impression Chest X-Ray 12/15/23 18:30 IMPRESSION: Right upper and lower lobe infiltrates in association with partial collapse of the right upper lobe possibly due to mucous plugging. Electronically Signed: Saroj Willingham MD at 19:16 EST , Chest CT 12/15/23 19:23 IMPRESSION: Bilateral predominantly interstitial infiltrates in both upper and lower lobes most likely viral in etiology possibly due to Covid. There is more extensive consolidation in the right upper lobe with associated partial collapse. There is also mild subsegmental atelectasis or infiltrate in the right lower lobe. Electronically Signed: Saroj Willingham MD at 20:25 EST , Facial/Sinus 12/15/23 19:23 IMPRESSION: Minor bilateral ethmoid and right maxillary sinus disease likely chronic. No evidence for facial bone fracture or acute osteomyelitis Electronically Signed: Saroj Willingham MD at 20:13 EST , Assessment & Plan Assessment/Plan (1) Pneumonia: PLAN: Plan The patient is a 78 y/o F w/ PMHx: Obesity, NAFLD, Asthma w/ Allergic rhinitis, Psoriatic arthritis, HTN, HLD, GERD who presents to the [facility] ED on 12/15/23 with history of recent onset Thursday body aches, nausea without emesis, nasal congestion, intermittent nonproductive cough with fevers worse with increased postnasal drip within the ED evidence of mild tachypnea and onset of dyspnea prompting eventual ED evaluation. #1. Acute Hypoxia (presentation not consistent with respiratory failure) secondary to Acute Bilateral Pneumonia, Possible Acute Viral Syndrome/Pneumonia with now superimposed Bacterial Pneumonia, but uncertain: Will admit to [facility], maintain on oxygen with wean as tolerated to room air, continue ATC budesonide, PRN albuterol, maintain on IV Rocephin and Azithromycin, HOB, IS parameters w/ pending sputum cultures, full respiratory viral panel and urine antigens. Bld cx x 2 obtained in the ED. #2. Chronic asthma with allergic rhinitis: Will maintain on oxygen with wean as tolerated to room air, hold home inhaler in the interim transition to ATC budesonide therapy, PRN albuterol, HOB, IS parameters. #3. Hypertension: Continue home regimen including losartan, amlodipine, hydrochlorothiazide as BP allows, PRN hydralazine. #4. Hyperlipidemia: Not on statin therapy, defer to outpatient. #5. Psoriatic arthritis: Patient currently is not on any chronic regimen, encouraged continued outpatient follow-up with rheumatology as previously arranged. #6. Nonalcoholic fatty liver disease: CMP with T. bili 1.40, D bili 0.41, AST/LT 80/68, encourage continued outpatient follow-up with gastroenterology as previously arranged. #7. Obesity: Weight loss and lifestyle changes encouraged. #8. GERD: Continue patient on PPI. #9. DVT prophylaxis: Lovenox. #10. CODE status: Patient HCPOA and living will are not in place but she notes her daughter who is present would be her decision-maker if necessary. She notes that her has several health issues. Discussed CODE status at length including difference between FULL code, DNR-CCA and DNR-CC status. Following discussions about the differences in these status, requested Full Code status. Advanced Care Planning Face to Face Time: 16 minutes. Charges/Coding Visit Charges Inpatient E&M: 57922 Init Hosp L3 Procedures Hospitalists Procedures: 66223 Advncd Care Plan 30 Min
[2023-12-15] MEDS: 0.9% Normal Saline (1000mL) 1,000 ML 100 ML IV (23:23)
[2023-12-15] MEDS: Potassium Chloride Oral Tablet 20 MEQ 40 MEQ PO (23:34)
[2023-12-16] VITALS (12 sets, daily range): BP systolic 105–138; BP diastolic 52–55; PULSE 60–79; RESP 16–18; TEMP 36.6–37.2; O2SAT 89–98; BMI 28.9
[2023-12-16] MEDS: Ipratropium/Albuterol Sulfate 3 ML AMPUL.NEB INHALATION ×4 (07:32→19:34)
[2023-12-16 07:51] LABS: Absolute Lymphocyte Count 1.17 X10^3/uL (0.83-4.51); Absolute Neutrophil Count 6.9 X10^3/uL (2.0-7.7); Basophil# 0.03 X10^3/uL; Basophil% 0.3 % (0-1); Eosinophil# 0.18 X10^3/uL; Hematocrit 34.3 % (37-47); Hemoglobin 11.5 g/dL (12.0-15.0); Lymphocyte # 1.17 X10^3/ul (0.83-4.51); Lymphocyte % 13.1 % (19-41); Mean Corp Hgb Conc 33.5 g/dL (32-36); Mean Corpuscular Hgb 31.7 pg (27.0-32.0); Mean Corpuscular Volume 94.5 fL (81-99); Mean Platelet Vol. 11.3 fl (6.2-12.0); Monocyte# 0.57 X10^3/uL; Monocyte% 6.4 % (0-10); NRBC Flagged by Analyzer 0 % (0-5); Neutrophil # 6.94 X10^3/uL (2.7-7.7); Neutrophil % 77.8 % (47-70); Platelet Count 180 K/mm3 (150-450); RBC Distribution Width CV 12.4 % (11.6-14.6); RBC Distribution Width SD 43.1 fl (35.1-43.9); Red Blood Count 3.63 M/mm3 (4.2-5.4); White Blood Count 8.9 K/mm3 (4.4-11.0)
[2023-12-16 08:15] LABS: ALB/GLOB Ratio 0.7 RATIO (0.9-2.4); AST(SGOT) 52 U/L (15-37); Alanine Aminotransfer ALT/SGPT 56 U/L (13-56); Albumin, Serum 2.6 g/dL (3.2-5.0); Alkaline Phosphatase 79 U/L (45-117); Anion Gap 6 (5-15); BUN 10 mg/dL (7-18); BUN/Creat Ratio 14.5 RATIO (10-20); Calcium,Total 8.4 mg/dL (8.5-10.1); Chloride 111 mmol/L (98-107); Creatinine, Serum 0.69 mg/dL (0.55-1.02); EST Glomerular Filtration Rate 88 mL/min (>60); Est Glom Filt Rate - Afr Amer 106 mL/min (>60); Estimated Creatinine Clearance 54.65 ml/min; Globulin 3.6 g/dL (2.2-4.2); Glucose 98 mg/dL (74-106); Potassium 3.5 mmol/L (3.5-5.1); Protein, Total 6.2 g/dL (6.4-8.2); Sodium Level 141 mmol/L (136-145)
[2023-12-16] MEDS: Pantoprazole Sodium 20 MG Tablet PO (08:59)
[2023-12-16] MEDS: Losartan Potassium 50 MG Tablet PO (08:59)
[2023-12-16] MEDS: Enoxaparin 40 MG/0.4 ML Syringe SC (09:00)
[2023-12-16] MEDS: hydroCHLOROthiazide 12.5mg 12.5 MG PO (09:00)
[2023-12-16] MEDS: amLODIPine 5 MG Tablet PO (09:00)
[2023-12-16 10:36] LABS: Erythrocyte Sedimentation Rate 39 mm/hr (0-30)
[2023-12-16] MEDS: Ibuprofen 400 MG Tablet 800 MG PO (10:39)
[2023-12-16 12:17] LABS: Procalcitonin < 0.04 ng/mL (0.00-0.09)
--- NOTE | 2023-12-16 13:21 | PCM.PN.HOSP ---
Reason for Visit Reason for Visit: Diagnoses Pneumonia, unspecified organism (12/15/23) Subjective Subjective Patient admitted yesterday evening for concern for pneumonia after presenting with fever/chills, body aches and worsening dyspnea on exertion. No acute events overnight. Patient seen at bedside this morning. Patient was sitting up comfortably in bed, in no acute distress. Patient did appear fatigued but otherwise was conversing normally. She was breathing comfortably on 3 L nasal cannula. Patient states that she feels similar this morning as she did on admission yesterday. On further inquiry of her history, patient states that she has had worsening dyspnea on exertion over the last several weeks to short months. She previously was able to walk around the block several times without issue but has noticed that she has been slowing down over that timeframe. She is also noticed that she generally feels much more fatigued and her whole body with any activity than she previously did. She does report new onset fevers and chills that began about 3 days prior to admission. She reports an intermittent nonproductive cough over the past several days to short weeks. Patient does have a known history of psoriasis but states it was psoriasis of the scalp that was an issue over 30 years ago and has not returned, and she was never on immunotherapy for this. Patient does report mild chest discomfort this morning, similar to previous days. States the chest discomfort is across the upper part of her chest and fairly diffuse. She otherwise denies any other acute pain or discomfort. No other acute concerns at this time. Objective Data Objective Data Vital Signs: Vital Signs Temp Pulse Resp BP Pulse Ox O2 Del Method O2 Flow Rate 98.9 F 66 18 138/54 H 94 Nasal Cannula 2 12/16/23 12:54 12/16/23 12:54 12/16/23 12:54 12/16/23 12:54 12/16/23 12:54 12/16/23 12:54 12/16/23 12:54 Oxygen Flow Rate (L/min) 2 Oxygen Delivery Method Nasal Cannula Weight: 71.8 kg Body Mass Index (BMI) 28.9 Intake & Output: Intake and Output for Last 24 Hours 12/14/23 12/15/23 12/16/23 23:59 23:59 23:59 Intake Total 1305 / 1505 1200 / 1200 Balance 1305 / 1505 1200 / 1200 Lab / Micro Data 12/16/23 07:10 12/16/23 07:10 Labs: Laboratory Results - last 24 hr 12/15/23 17:28: WBC 12.4 H, RBC 4.30, Hgb 13.5, Hct 40.3, MCV 93.7, MCH 31.4, MCHC 33.5, RDW Std Deviation 43.0, RDW Coeff of Eze 12.5, Plt Count 209, MPV 11.1, Immature Gran % (Auto) 0.300, Neut % (Auto) 87.4 H, Lymph % (Auto) 7.7 L, [place] % (Auto) 3.6, Eos % (Auto) 0.4, Baso % (Auto) 0.6, Absolute Neuts (auto) 10.8 H, Absolute Lymphs (auto) 0.95, Nucleated RBC % 0, Sodium 137, Potassium 3.3 L, Chloride 104, Carbon Dioxide 26.0, Anion Gap 7, BUN 14, Creatinine 0.97, Estim Creat Clear Calc 46.85, Est GFR (MDRD) Af Amer 72, Est GFR (MDRD) Non-Af 59 L, BUN/Creatinine Ratio 14.4, Glucose 126 H, Lactic Acid 1.5, Calcium 9.2, Magnesium 2.0, Total Bilirubin 1.40 H, Direct Bilirubin 0.41 H, AST 80 H, ALT 68 H, Alkaline Phosphatase 95, Total Protein 7.6, Albumin 3.4, Globulin 4.2 12/15/23 18:05: Urine Color Yellow, Urine Clarity Clear, Urine pH 7.0, Ur Specific [place] 1.010, Urine Protein Negative, Urine Glucose (UA) Normal, Urine Ketones 50 H, Urine Occult Blood 10 H, Urine Nitrite Negative, Urine Bilirubin Negative, Urine Urobilinogen Normal, Ur Leukocyte Esterase 500 H, Urine RBC 0 SEEN, Urine WBC 5-10 SEEN, Ur Squamous Epith Cells 5-10 SEEN, Urine Bacteria 1+, Urine Mucus 0 SEEN 12/16/23 07:10: WBC 8.9, RBC 3.63 L, Hgb 11.5 L, Hct 34.3 L, MCV 94.5, MCH 31.7, MCHC 33.5, RDW Std Deviation 43.1, RDW Coeff of Eze 12.4, Plt Count 180, MPV 11.3, Immature Gran % (Auto) 0.400, Neut % (Auto) 77.8 H, Lymph % (Auto) 13.1 L, [place] % (Auto) 6.4, Eos % (Auto) 2.0, Baso % (Auto) 0.3, Absolute Neuts (auto) 6.9, Absolute Lymphs (auto) 1.17, Nucleated RBC % 0, ESR 39 H, Sodium 141, Potassium 3.5, Chloride 111 H, Carbon Dioxide 24.0, Anion Gap 6, BUN 10, Creatinine 0.69, Estim Creat Clear Calc 54.65, Est GFR (MDRD) Af Amer 106, Est GFR (MDRD) Non-Af 88, BUN/Creatinine Ratio 14.5, Glucose 98, Calcium 8.4 L, Total Bilirubin 1.10 H, AST 52 H, ALT 56, Alkaline Phosphatase 79, C-React Prot Ext Range 175.00 H, Total Protein 6.2 L, Albumin 2.6 L, Globulin 3.6, Albumin/Globulin Ratio 0.7 L, Procalcitonin < 0.04 Micro: Microbiology 12/15/23 22:41 Mucosa - Nasopharyngeal Respiratory Panel (PCR) - Final 12/15/23 23:00 Urine, Clean Catch Legionella Antigen - Final 12/15/23 23:00 Urine, Clean Catch Streptococcus pneumoniae Antigen (M - Final 12/15/23 18:13 Mucosa - Nose SARS-CoV-2, Influenza & RSV (PCR) - Final Radiography Diagnostic Testing: Radiology Impression Chest X-Ray 12/15/23 18:30 IMPRESSION: Right upper and lower lobe infiltrates in association with partial collapse of the right upper lobe possibly due to mucous plugging. Electronically Signed: Saroj Willingham MD at 19:16 EST , Chest CT 12/15/23 19:23 IMPRESSION: Bilateral predominantly interstitial infiltrates in both upper and lower lobes most likely viral in etiology possibly due to Covid. There is more extensive consolidation in the right upper lobe with associated partial collapse. There is also mild subsegmental atelectasis or infiltrate in the right lower lobe. Electronically Signed: Saroj Willingham MD at 20:25 EST , Facial/Sinus 12/15/23 19:23 IMPRESSION: Minor bilateral ethmoid and right maxillary sinus disease likely chronic. No evidence for facial bone fracture or acute osteomyelitis Electronically Signed: Saroj Willingham MD at 20:13 EST , Physical Exam Const alert, oriented x3, no apparent distress and average body habitus Constitutional Narrative: Pleasant elderly female, sitting up comfortably in bed, fatigued appearing, otherwise conversing normally and in no acute distress. General Appearance: cooperative and comfortable HEENT normocephalic, head/scalp atraumatic, hearing grossly normal bilaterally and nasal mucous membranes and turbinates normal Eyes PERRL, EOMs intact bilaterally and conjunctivae normal Neck full ROM Chest inspection of chest normal Resp normal respiratory effort and no use of accessory muscles Resp Narrative: Breathing comfortably on 3 L nasal cannula. Patient does have moderately reduced breath sounds bilaterally with significant crackles noted in right upper lung field. No wheezing noted. Cardio regular rate, regular rhythm, no murmurs and peripheral pulses 2+ throughout GI normal to inspection, nondistended, normoactive bowel sounds, soft to palpation, non-tender and non-distended Back/Spine normal ROM Extremity normal to inspection, full ROM and no pedal edema Skin no rashes or lesions noted Neuro no focal motor deficits and no sensory deficits noted Speech: speech normal Psych mental status grossly normal Assessment & Plan Assessment/Plan (1) Dyspnea on minimal exertion: (2) Abnormal CT scan, chest: PLAN: Plan Patient is a 78-year-old female who presented to [facility] ED on 12/15/2023 with fever/chills and worsening shortness of breath. 1. Worsening dyspnea on exertion with acute hypoxia, abnormal CT chest findings, concern for community acquired pneumonia ? Presented with worsening dyspnea on exertion over a period of weeks to short months, along with 3-day history of fever/chills. ? Febrile in ED to 102.9F, mildly hypoxic on room air, otherwise normotensive and not tachycardic. Mild leukocytosis of 12 noted, lactic acid normal, no evidence of endorgan dysfunction, sepsis ruled out. ? CTA chest showed bilateral predominantly interstitial infiltrates in both upper and lower lobes with more extensive consolidation right upper lobe associated with partial collapse. ? Infectious workup negative to this point including COVID/flu/RSV swab, full respiratory panel, urine antigens and sputum Gram stain. Blood cultures and respiratory culture pending. ? Procalcitonin negative. ESR mildly elevated at 39, CRP significantly elevated at 175. ? Given patient's fairly insidious onset of symptoms, negative infectious workup and CT chest findings, my highest concern at this time is for an inflammatory/autoimmune etiology for her lung disease. Started patient on IV Solu-Medrol 40 mg every 8 hours for now. Will continue ceftriaxone and azithromycin for now, follow-up pending infectious workup. ? Pulmonology consult placed. Chronic medical conditions: ? Chronic asthma with allergic rhinitis: Continue home inhalers. ? Hypertension: Continue home losartan, amlodipine, hydrochlorothiazide. ? GERD: Continue home PPI. DVT prophylaxis: Lovenox CODE STATUS: Full code, verified Expected disposition: Home, 2 to 3 days Total clinical time spent by myself addressing the patient's medical issues, reviewing all the data, and collaborating with patient's care team: 35 minutes. Charges/Coding Visit Charges Inpatient E&M: 02484 Subs Hosp L2
--- NOTE | 2023-12-16 14:25 | CASEMGMT ---
RN CM Assessment: RN?CM?to room to meet with patient for initial transition planning/care coordination?assessment.?RN?CM?introduced self and role at [facility].? Pt voices understanding and consents to?assessment?at this time.? Pt resting in bed in no distress at this time.? Pt is A/O at this time and answers all questions appropriately.?? Care providers, pharmacy, and demographics verified/updated at this time. PCP: Dr Harris Specialists: Dr Summers-cardiology, Dr Bell-pulmonology, Dr Davidson-ENT Preferred Pharmacy: [facility] Insurance: MCR, Prescription Benefit:?yes Living Will/HPOA:?Pt does not currently have LW/HCPOA and declines info at this time.? Pt made aware that she can contact as an out-pt and make appt in the future if she decides she would like to talk with someone about this or would like to utilize [facility] social work for advanced directive completion.? LNOK: , Mike. 2 daughters: Pattie Prescott and Kimmie Bass Living Arrangements: Lives w/her in one-story home w/basement w/a stair lift and 2-3 steps to enter home. Independent w/ADL's and IADL's. Transportation:?Pt states drives self and states no transportation concerns at this time.? also drives. DME: ? Denies using any DME and denies needs.? She does have a pulse ox. No home O2. If O2 is needed @ d/c, she prefers [employer], as this is who her has his O2 thru. HHC/SNF: No hx of either. No needs identified. Pt wishes to return home and states has no concerns with going home at time of discharge.? CM?to follow for home oxygen needs and any further discharge planning/needs.? Pt voices no further concerns/needs at this time.? Advised pt to ask for?CM?if any further questions/concerns/needs arise.? Voices understanding. PLAN:??Home. Follow for possible home O2. Roger WHEATLEYN?RN?CM
[2023-12-16] MEDS: Ceftriaxone 1 GM/50 ML BAG IV (21:25)
[2023-12-16] MEDS: Azithromycin 500 MG in Dextrose 5%-Water (250mL Bag) 250 ML 250 MG IV (23:00)
[2023-12-17] VITALS (10 sets, daily range): BP systolic 109–148; BP diastolic 57–60; PULSE 57–83; RESP 16–20; TEMP 36.4–36.9; O2SAT 92–95; BMI 29.0
--- NOTE | 2023-12-17 06:49 | EX.PCM.CONCC ---
Assessment & Plan Assessment/Plan (1) Dyspnea on minimal exertion: (2) Pneumonia: PLAN: Plan RECOMMENDATIONS: 1. Supplemental oxygen to maintain saturations at or above 90%. 2. Continue antibiotics to complete a total of 7 days of therapy. 3. Transition to prednisone 40 mg daily, with plans to complete a 5-day burst at discharge. 4. Continue bronchodilator therapy. 5. Resume Trelegy Ellipta at discharge, per outpatient regimen. 6. Follow-up with primary pulmonary provider, Dr. Bell, after discharge. 7. Recommend follow-up chest imaging in 6 to 8 weeks to document improvement/resolution. 8. Will sign off at this time. Please call with any additional questions. IMPRESSIONS: 1. Shortness of breath and hypoxemia The patient presented with shortness of breath, chest discomfort and fever. CT imaging demonstrated findings concerning for community-acquired pneumonia with groundglass changes and consolidation of the right upper lobe. The patient appears to be slowly improving from a respiratory perspective. I agree with continuing antibiotics to complete 7 days of therapy. The patient has been maintained on scheduled bronchodilator therapy. I would recommend that she be transition to prednisone 40 mg daily, with plans for a 5-day burst at discharge. Ultimately, I would recommend that she follow-up with her primary pulmonary provider, Dr. Bell, upon discharge from the hospital. She did report that she has upcoming pulmonary function studies scheduled. I would recommend that repeat chest imaging to be completed in 6 to 8 weeks to document resolution of the aforementioned findings noted on CT imaging of the chest. 2. Personal history of asthma with allergic rhinitis/hypertension/GERD/questionable psoriatic arthritis Complicates care, management, recovery and prognosis. Continue home medications as indicated. This note was generated with [employer] dictation software. It may contain incorrect words, spelling, and punctuation that were not noted in checking the note before signing. HPI Consult Data Date of Consult: 12/17/23 HPI Narrative Reason for Consultation: Bilateral pneumonia HPI Narrative: The patient is a 78-year-old female, with a history as outlined below, who presented to the emergency department via EMS on December 14 with generalized weakness, body aches, nausea, fevers and nonproductive cough. The patient has a reported history of asthma, psoriatic arthritis, nonalcoholic fatty liver disease, GERD, hypertension and hyperlipidemia. According to the patient, she is followed on a regular basis by Dr. Bell of pulmonary medicine. She is prescribed Trelegy Ellipta on an outpatient basis for presumptive asthma. The patient does not utilize supplemental oxygen at her baseline. On presentation to the emergency department, the patient was noted to be febrile with a temperature of 102.9 ?F. She was otherwise hemodynamically stable and maintaining appropriate oxygen saturations on room air. Initial laboratory evaluation revealed an elevated white blood cell count to 12,000. Chemistry profile was largely unrevealing. Total bili was increased to 1.4 with an AST of 80 and ALT of 68. Urine analysis was positive for leukocyte esterase and 1+ urine bacteria. CT chest demonstrated bilateral interstitial infiltrates with more extensive consolidation of the right upper lobe. The patient was ultimately treated with supplemental IV fluids and initiated on antimicrobial therapy. She was admitted to the medical surgical floor for further management. This morning, the patient is afebrile and hemodynamically stable. She is maintaining appropriate oxygen saturations on 2 L/min via nasal cannula. She has been maintained on scheduled bronchodilator therapy along with IV steroids. [facility] Medical History Allergic rhinitis Asthma Bradycardia Chronic sinusitis Class 1 obesity DDD (degenerative disc disease) Dysthymic disorder Essential hypertension GERD (gastroesophageal reflux disease) Hyperlipidemia NAFLD (nonalcoholic fatty liver disease) Osteoporosis Psoriatic arthritis Pulmonary artery hypertension Vitamin D deficiency Home Medications cyanocobalamin (vitamin B-12) 1,000 mcg/mL injection solution 100 mcg subcut Q30D supplement 06/30/17 [History Last Taken 06/21/17] cholecalciferol (vitamin D3) 25 mcg (1,000 unit) capsule 25 mcg PO DAILY 09/10/21 [History Last Taken Unknown] losartan 50 mg tablet 50 mg PO DAILY #90 tabs 04/15/23 [Rx Last Taken Unknown] hydrochlorothiazide 12.5 mg tablet See Rx Instructions .Route .COMPLEX #90 tabs 07/31/23 [Rx Last Taken Unknown] amlodipine 5 mg tablet See Rx Instructions .Route .COMPLEX #90 tabs 11/03/23 [Rx Last Taken Unknown] fluticasone fur. 200 mcg-umeclid 62.5 mcg-vilant 25 mcg inhalat.powder (Trelegy Ellipta) 1 inh inhalation DAILY 11/03/23 [History Last Taken Unknown] omeprazole 20 mg capsule,delayed release 20 mg PO DAILY 11/03/23 [History Last Taken Unknown] Allergy/AdvReac Type Severity Reaction Status Date / Time ezetimibe [From Zetia] AdvReac myalgia Verified 12/15/23 17:18 [id number] Reductase AdvReac myalgia Verified 12/15/23 17:18 Inhibitor Family History Father Colon cancer Mother CAD (coronary artery disease) Brother Colon cancer Sister CAD (coronary artery disease) Sudden cardiac Myocardial infarction Surgical History History of carpal tunnel release Social History Smoking Status: Never smoker alcohol intake: never substance use type: does not use caffeine: Yes Type: coffee Number of servings: 2 what type of physical activity do you participate in: none seatbelt use: always do you feel safe at home: Yes Physical Exam Const alert and no apparent distress General Appearance: cooperative HEENT normocephalic, head/scalp atraumatic and moist oral mucous membranes General Ear: hearing grossly impaired Eyes PERRL, EOMs intact bilaterally and conjunctivae normal Neck supple General: trachea midline Chest inspection of chest normal Resp normal respiratory effort Auscultation: rales and diminished lung sounds Cardio regular rate and regular rhythm GI normal to inspection, nondistended, normoactive bowel sounds Extremity no clubbing, cyanosis or edema Skin no rashes or lesions noted Neuro oriented x3, CN's II-XII intact bilaterally, moves all extremities and no focal motor deficits Psych cooperative and affect normal Lab / Micro Data 12/17/23 07:45 12/17/23 07:45 Labs: Laboratory Results - last 24 hr 12/16/23 07:10: WBC 8.9, RBC 3.63 L, Hgb 11.5 L, Hct 34.3 L, MCV 94.5, MCH 31.7, MCHC 33.5, RDW Std Deviation 43.1, RDW Coeff of Eze 12.4, Plt Count 180, MPV 11.3, Immature Gran % (Auto) 0.400, Neut % (Auto) 77.8 H, Lymph % (Auto) 13.1 L, Sharkey % (Auto) 6.4, Eos % (Auto) 2.0, Baso % (Auto) 0.3, Absolute Neuts (auto) 6.9, Absolute Lymphs (auto) 1.17, Nucleated RBC % 0, ESR 39 H, Sodium 141, Potassium 3.5, Chloride 111 H, Carbon Dioxide 24.0, Anion Gap 6, BUN 10, Creatinine 0.69, Estim Creat Clear Calc 54.65, Est GFR (MDRD) Af Amer 106, Est GFR (MDRD) Non-Af 88, BUN/Creatinine Ratio 14.5, Glucose 98, Calcium 8.4 L, Total Bilirubin 1.10 H, AST 52 H, ALT 56, Alkaline Phosphatase 79, C-React Prot Ext Range 175.00 H, Total Protein 6.2 L, Albumin 2.6 L, Globulin 3.6, Albumin/Globulin Ratio 0.7 L, Procalcitonin < 0.04 Micro: Microbiology 12/16/23 06:35 Sputum, Expectorated/Coughed Gram Stain - Final Charges/Coding Visit Charges Inpatient E&M: 43182 Init Hosp L3
[2023-12-17] MEDS: Ipratropium/Albuterol Sulfate 3 ML AMPUL.NEB INHALATION ×4 (07:14→19:24)
[2023-12-17 08:07] LABS: Hemoglobin 13.3 g/dL (12.0-15.0); Mean Corp Hgb Conc 33.3 g/dL (32-36); Mean Corpuscular Hgb 31.5 pg (27.0-32.0); Mean Corpuscular Volume 94.8 fL (81-99); Mean Platelet Vol. 11.1 fl (6.2-12.0); Platelet Count 268 K/mm3 (150-450); RBC Distribution Width CV 12.5 % (11.6-14.6); RBC Distribution Width SD 43.7 fl (35.1-43.9); Red Blood Count 4.22 M/mm3 (4.2-5.4); White Blood Count 8.9 K/mm3 (4.4-11.0)
[2023-12-17 08:21] LABS: Anion Gap 15 (5-15); BUN 15 mg/dL (7-18); BUN/Creat Ratio 14.6 RATIO (10-20); Calcium,Total 9.9 mg/dL (8.5-10.1); Chloride 108 mmol/L (98-107); Creatinine, Serum 1.03 mg/dL (0.55-1.02); EST Glomerular Filtration Rate 55 mL/min (>60); Est Glom Filt Rate - Afr Amer 67 mL/min (>60); Glucose 176 mg/dL (74-106); Potassium 3.4 mmol/L (3.5-5.1); Sodium Level 143 mmol/L (136-145)
[2023-12-17] MEDS: amLODIPine 5 MG Tablet PO (10:00)
[2023-12-17] MEDS: Losartan Potassium 50 MG Tablet PO (10:01)
[2023-12-17] MEDS: hydroCHLOROthiazide 12.5mg 12.5 MG PO (10:01)
[2023-12-17] MEDS: Pantoprazole Sodium 20 MG Tablet PO (10:01)
[2023-12-17] MEDS: Enoxaparin 40 MG/0.4 ML Syringe SC (10:02)
--- NOTE | 2023-12-17 10:18 | NURSING ---
Pt was sitting in her chair by the window and walked over to the other side and got in bed. Pt forgot she did not have her oxygen on. This RN got vitals and spo2 95% on RA.
--- NOTE | 2023-12-17 15:02 | PCM.PN.HOSP ---
Reason for Visit Reason for Visit: Diagnoses Pneumonia, unspecified organism (12/15/23) Dyspnea, unspecified (12/15/23) Abnormal findings on diagnostic imaging of other specified body structures (12/15/23) Subjective Subjective No acute events overnight. Dr. Shukla with pulmonology saw the patient earlier this morning and we discussed over the phone prior to my encounter with the patient. His highest concern is for a community-acquired pneumonia and he recommended continued treatment with antibiotics. He was also okay with continuing steroids given the patient's history of reported chronic asthma. He also recommended that the patient have close outpatient follow-up with her church communications administrator Dr. Bell on discharge. I saw patient at the bedside later this morning. She was sitting up comfortably in bed, conversing normally, in no acute distress. She was just finishing a breathing treatment when I saw her. Stated she felt slightly better than yesterday but did report some generalized weakness in her shoulders and hips this morning. She also reported feeling somewhat anxious. I noted to her that this was likely secondary to the steroids and she was relieved to hear this. She otherwise denied any acute pain or discomfort. No other acute concerns at this time. Objective Data Objective Data Vital Signs: Vital Signs Temp Pulse Resp BP Pulse Ox O2 Del Method O2 Flow Rate 98.2 F 67 18 148/58 H 95 Room Air 2 12/17/23 09:55 12/17/23 09:55 12/17/23 09:55 12/17/23 09:55 12/17/23 10:05 12/17/23 14:37 12/17/23 08:01 Oxygen Flow Rate (L/min) 2 Oxygen Delivery Method Room Air Weight: 72 kg Body Mass Index (BMI) 29.0 Intake & Output: Intake and Output for Last 24 Hours 12/15/23 12/16/23 12/17/23 23:59 23:59 23:59 Intake Total 1305 / 1505 2050 / 2250 1205 / 1205 Balance 1305 / 1505 2050 / 2250 1205 / 1205 Lab / Micro Data 12/17/23 07:45 12/17/23 07:45 Labs: Laboratory Results - last 24 hr 12/17/23 07:45: WBC 8.9, RBC 4.22, Hgb 13.3, Hct 40.0, MCV 94.8, MCH 31.5, MCHC 33.3, RDW Std Deviation 43.7, RDW Coeff of Eze 12.5, Plt Count 268, MPV 11.1, Sodium 143, Potassium 3.4 L, Chloride 108 H, Carbon Dioxide 20.0 L, Anion Gap 15, BUN 15, Creatinine 1.03 H, Estim Creat Clear Calc 42.50, Est GFR (MDRD) Af Amer 67, Est GFR (MDRD) Non-Af 55 L, BUN/Creatinine Ratio 14.6, Glucose 176 H, Calcium 9.9 Micro: Microbiology 12/16/23 06:35 Sputum, Expectorated/Coughed Gram Stain - Final 12/15/23 22:41 Mucosa - Nasopharyngeal Respiratory Panel (PCR) - Final 12/15/23 23:00 Urine, Clean Catch Legionella Antigen - Final 12/15/23 23:00 Urine, Clean Catch Streptococcus pneumoniae Antigen (M - Final 12/15/23 18:13 Mucosa - Nose SARS-CoV-2, Influenza & RSV (PCR) - Final Physical Exam Const alert, oriented x3, no apparent distress and average body habitus Constitutional Narrative: Pleasant elderly female, sitting up comfortably in bed, fatigued appearing but slightly improved from yesterday, otherwise conversing normally and in no acute distress. General Appearance: cooperative and comfortable HEENT normocephalic, head/scalp atraumatic, hearing grossly normal bilaterally and nasal mucous membranes and turbinates normal Eyes PERRL, EOMs intact bilaterally and conjunctivae normal Neck full ROM Chest inspection of chest normal Resp normal respiratory effort and no use of accessory muscles Resp Narrative: Breathing comfortably on 2 L nasal cannula. Continues to have moderately reduced breath sounds bilaterally with crackles in right upper lung field. No wheezing noted. Cardio regular rate, regular rhythm, no murmurs and peripheral pulses 2+ throughout GI normal to inspection, nondistended, normoactive bowel sounds, soft to palpation, non-tender and non-distended Back/Spine normal ROM Extremity normal to inspection, full ROM and no pedal edema Skin no rashes or lesions noted Neuro no focal motor deficits and no sensory deficits noted Speech: speech normal Psych mental status grossly normal Assessment & Plan Assessment/Plan (1) Dyspnea on minimal exertion: (2) Abnormal CT scan, chest: PLAN: Plan Patient is a 78-year-old female who presented to [facility] ED on 12/15/2023 with fever/chills and worsening shortness of breath. 1. Worsening dyspnea on exertion with acute hypoxia, abnormal CT chest findings, concern for community acquired pneumonia ? Presented with worsening dyspnea on exertion over a period of weeks to short months, along with 3-day history of fever/chills. ? Febrile in ED to 102.9F, mildly hypoxic on room air, otherwise normotensive and not tachycardic. Mild leukocytosis of 12 noted, lactic acid normal, no evidence of endorgan dysfunction, sepsis ruled out. ? CTA chest showed bilateral predominantly interstitial infiltrates in both upper and lower lobes with more extensive consolidation right upper lobe associated with partial collapse. ? Infectious workup negative to this point including COVID/flu/RSV swab, full respiratory panel, urine antigens and sputum Gram stain. Blood cultures and respiratory culture pending. ? Procalcitonin negative. ESR mildly elevated at 39, CRP significantly elevated at 175. ? Given concern for possible inflammatory disease, initiated patient on IV Solu-Medrol 40 mg every 8 hours on 12/15. ? Pulmonology following. Has high concern for community-acquired pneumonia but notes the patient has a history of chronic asthma as well. Recommendation is to continue ceftriaxone and azithromycin for now and can also continue steroids for possible asthma exacerbation, with plan to complete 5 to 7-day courses of both. Continue long-acting inhaler and DuoNebs as needed. Follow-up infectious workup. Recommended close outpatient follow-up with patient's outpatient church communications administrator Dr. Bell on discharge. Chronic medical conditions: ? Chronic asthma with allergic rhinitis: Continue home inhalers. ? Hypertension: Continue home losartan, amlodipine, hydrochlorothiazide. ? GERD: Continue home PPI. DVT prophylaxis: Lovenox CODE STATUS: Full code, verified Expected disposition: Home, 1 to 2 days Total clinical time spent by myself addressing the patient's medical issues, reviewing all the data, and collaborating with patient's care team: 35 minutes. Charges/Coding Visit Charges Inpatient E&M: 23018 Subs Hosp L2
[2023-12-17] MEDS: Ceftriaxone 1 GM/50 ML BAG IV (22:39)
[2023-12-17] MEDS: Azithromycin 500 MG in Dextrose 5%-Water (250mL Bag) 250 ML 250 MG IV (22:39)
[2023-12-18 03:17] VITALS: BMI 29.2
[2023-12-18 05:18] LABS: Hematocrit 34.1 % (37-47); Hemoglobin 11.4 g/dL (12.0-15.0); Mean Corp Hgb Conc 33.4 g/dL (32-36); Mean Corpuscular Hgb 31.8 pg (27.0-32.0); Mean Corpuscular Volume 95.3 fL (81-99); Mean Platelet Vol. 10.9 fl (6.2-12.0); Platelet Count 258 K/mm3 (150-450); RBC Distribution Width CV 12.5 % (11.6-14.6); RBC Distribution Width SD 43.8 fl (35.1-43.9); Red Blood Count 3.58 M/mm3 (4.2-5.4); White Blood Count 17.7 K/mm3 (4.4-11.0)
[2023-12-18 05:36] LABS: Anion Gap 7 (5-15); BUN 20 mg/dL (7-18); BUN/Creat Ratio 26.2 RATIO (10-20); Calcium,Total 9.3 mg/dL (8.5-10.1); Chloride 112 mmol/L (98-107); Creatinine, Serum 0.76 mg/dL (0.55-1.02); EST Glomerular Filtration Rate 78 mL/min (>60); Est Glom Filt Rate - Afr Amer 95 mL/min (>60); Estimated Creatinine Clearance 54.98 ml/min; Glucose 115 mg/dL (74-106); Potassium 3.4 mmol/L (3.5-5.1); Sodium Level 145 mmol/L (136-145)
[2023-12-18 05:49] VITALS: BP 137/65; PULSE 55; RESP 18; TEMP 37; O2SAT 94
[2023-12-18] MEDS: Ipratropium/Albuterol Sulfate 3 ML AMPUL.NEB INHALATION ×2 (06:53→10:55)
[2023-12-18 06:56] VITALS: PULSE 56; RESP 16; O2SAT 97
[2023-12-18 07:32] VITALS: BP 143/65; PULSE 72; RESP 20; TEMP 36.6; O2SAT 96
[2023-12-18] MEDS: Potassium Chloride Oral Tablet 20 MEQ 40 MEQ PO (10:10)
[2023-12-18] MEDS: Losartan Potassium 50 MG Tablet PO (10:11)
[2023-12-18] MEDS: hydroCHLOROthiazide 12.5mg 12.5 MG PO (10:12)
[2023-12-18] MEDS: Enoxaparin 40 MG/0.4 ML Syringe SC (10:13)
[2023-12-18] MEDS: amLODIPine 5 MG Tablet PO (10:17)
[2023-12-18] MEDS: Pantoprazole Sodium 20 MG Tablet PO (10:18)
[2023-12-18] MEDS: Ibuprofen 400 MG Tablet 800 MG PO (10:29)
[2023-12-18 10:57] VITALS: PULSE 67; RESP 16
[2023-12-18] MEDS: 0.9% Saline Lock 10 ML Syringe IV (10:59)
--- NOTE | 2023-12-18 11:32 | DCINST_ITS ---
Discharge Instructions Diet Discharge Diet: No restrictions Activity Discharge Activity: No Restrictions Weight Bearing Status: Full weight bearing Follow Up Care Test Results: Test results from this visit will be discussed in further detail at your follow- up appointment, if applicable. Discharge Plan Admission Admit Date/Time: 12/15/23 21:11 Primary Reason for Your Visit: shortness of breath Attending Provider: David Tatum Primary Care Provider: Megan Harris Consulting Providers: Octavia Flowers Instructions Additional Instructions / Restrictions: Please take 4 more days of antibiotics and steroids to complete 7-days courses total of both. Follow up with Dr. Bell in the office in the next few weeks. Discharge Orders/Prescriptions Prescriptions: New prednisone 20 mg tablet 40 mg PO DAILY 4 Days Qty: 8 0RF amoxicillin-pot clavulanate 875-125 mg tablet 1 tab PO BID 4 Days Qty: 8 0RF Continued cholecalciferol (vitamin D3) 25 mcg (1,000 unit) capsule 25 mcg PO DAILY omeprazole 20 mg capsule,delayed release(DR/EC) 20 mg PO DAILY Trelegy Ellipta 200-62.5-25 mcg blister with device 1 inh inhalation DAILY amlodipine 5 mg tablet See Rx Instructions .ROUTE .COMPLEX Qty: 90 3RF Dose Instruction: TAKE 1 TABLET DAILY Rx Instructions: TAKE 1 TABLET DAILY cyanocobalamin (vitamin B-12) 1,000 MCG/ML solution 100 mcg SC Q30D Patient Comments: supplement
--- NOTE | 2023-12-18 11:32 | PCM.DC.SUM ---
Providers Date of Admission: 12/15/23 Date of Discharge: 12/18/23 Primary Care Physician: Dr. Megan Harris, Consultations 12/16/23 09:00 Consult: [employer] / Pulmonary Medicine Routine Consulting Provider: Gaudencio Shukla Reason for Consult: b/l interstitial pna, infectious vs concern for inflam/autoimmune dz EMERGENT Consult: No MD Notified: Yes Date Notified: 12/16/23 Time Notified: 09:29 Method of Notification: Text Reason For Visit: BL PNA, HYPOXIA Diagnosis Discharge Diagnosis (1) Dyspnea on minimal exertion: Status: Acute Code(s): R06.00 - Dyspnea, unspecified (2) Abnormal CT scan, chest: Status: Acute Code(s): R93.89 - Abnormal findings on diagnostic imaging of other specified body structures Medications at Discharge Home Medications cyanocobalamin (vitamin B-12) 1,000 mcg/mL injection solution 100 mcg subcut Q30D supplement 06/30/17 cholecalciferol (vitamin D3) 25 mcg (1,000 unit) capsule 25 mcg PO DAILY 09/10/21 losartan 50 mg tablet 50 mg PO DAILY #90 tabs 04/15/23 hydrochlorothiazide 12.5 mg tablet See Rx Instructions .Route .COMPLEX #90 tabs 07/31/23 amlodipine 5 mg tablet See Rx Instructions .Route .COMPLEX #90 tabs 11/03/23 fluticasone fur. 200 mcg-umeclid 62.5 mcg-vilant 25 mcg inhalat.powder (Trelegy Ellipta) 1 inh inhalation DAILY 11/03/23 omeprazole 20 mg capsule,delayed release 20 mg PO DAILY 11/03/23 amoxicillin 875 mg-potassium clavulanate 125 mg tablet 1 tab PO BID 4 days #8 tabs 12/18/23 prednisone 20 mg tablet 40 mg (2 x 20 mg) PO DAILY 4 days #8 tabs 12/18/23 Hospital Course Operations None Procedures - (Chest x-ray, CTA chest, CT facial sinus) Summary of Care Provided Minutes Spent on Discharge: 35 Hospital Course: Patient is a 78-year-old female who presented to [facility] ED on 12/15/2023 with fever/chills and worsening shortness of breath. 1. Worsening dyspnea on exertion with acute hypoxia, abnormal CT chest findings, concern for community acquired pneumonia ? Presented with worsening dyspnea on exertion over a period of weeks to short months, along with 3-day history of fever/chills. ? Febrile in ED to 102.9F, mildly hypoxic on room air, otherwise normotensive and not tachycardic. Mild leukocytosis of 12 noted, lactic acid normal, no evidence of endorgan dysfunction, sepsis ruled out. ? CTA chest showed bilateral predominantly interstitial infiltrates in both upper and lower lobes with more extensive consolidation right upper lobe associated with partial collapse. ? Infectious workup negative including COVID/flu/RSV swab, full respiratory panel, urine antigens and sputum Gram stain, blood cultures and respiratory culture. ? Procalcitonin negative. ESR mildly elevated at 39, CRP significantly elevated at 175. ? Given concern for possible inflammatory disease, initiated patient on IV Solu-Medrol 40 mg every 8 hours on 12/15. ? Pulmonology followed. Highest concern was for community-acquired pneumonia, recommended treatment with 7-day course of antibiotics total. Did note that the patient has a history of chronic asthma, was okay with a 7-day course of steroids for treatment as well. ? Required up to 3 L nasal cannula during hospitalization. Completed home O2 ambulatory testing on day of discharge, did not require any supplemental oxygen. ? Treated with ceftriaxone, azithromycin and IV Solu-Medrol while inpatient. Discharged on Augmentin and p.o. prednisone 40 mg daily to complete 7-day course total, stop date 12/20. Continue home long-acting inhaler. Recommend close outpatient follow-up with her senior product marketing manager Dr. Bell. Chronic medical conditions: ? Chronic asthma with allergic rhinitis: Continue home inhalers. ? Hypertension: Continue home losartan, amlodipine, hydrochlorothiazide. ? GERD: Continue home PPI. Total clinical time spent by myself addressing the patient's medical issues, reviewing all the data, and collaborating with patient's care team: 35 minutes. Physical Exam Const alert, oriented x3, no apparent distress and average body habitus Constitutional Narrative: Pleasant elderly female, sitting up comfortably in bed, fatigued appearing but slightly improved from yesterday, otherwise conversing normally and in no acute distress. General Appearance: cooperative and comfortable HEENT normocephalic, head/scalp atraumatic, hearing grossly normal bilaterally and nasal mucous membranes and turbinates normal Eyes PERRL, EOMs intact bilaterally and conjunctivae normal Neck full ROM Chest inspection of chest normal Resp normal respiratory effort and no use of accessory muscles Resp Narrative: Breathing comfortably on room air. Breath sounds improving in right upper lung, only mild crackles noted. Cardio regular rate, regular rhythm, no murmurs and peripheral pulses 2+ throughout GI normal to inspection, nondistended, normoactive bowel sounds, soft to palpation, non-tender and non-distended Back/Spine normal ROM Extremity normal to inspection, full ROM and no pedal edema Skin no rashes or lesions noted Neuro no focal motor deficits and no sensory deficits noted Speech: speech normal Psych mental status grossly normal Weight / BMI Weight Weight: 72.7 kg Body Mass Index (BMI) 29.2 ABG / Lab / Microbiology Data 12/18/23 05:00 12/18/23 05:00 Laboratory: Laboratory Results - last 24 hr 12/18/23 05:00: WBC 17.7 H, RBC 3.58 L, Hgb 11.4 L, Hct 34.1 L, MCV 95.3, MCH 31.8, MCHC 33.4, RDW Std Deviation 43.8, RDW Coeff of Eze 12.5, Plt Count 258, MPV 10.9, Sodium 145, Potassium 3.4 L, Chloride 112 H, Carbon Dioxide 26.0, Anion Gap 7, BUN 20 H, Creatinine 0.76, Estim Creat Clear Calc 54.98, Est GFR (MDRD) Af Amer 95, Est GFR (MDRD) Non-Af 78, BUN/Creatinine Ratio 26.2 H, Glucose 115 H, Calcium 9.3 Microbiology: Microbiology 12/15/23 17:28 Blood Culture (Wb) - Anticubital Left Blood Culture - Preliminary No growth in 48 hours. 12/15/23 19:55 Blood Culture (Wb) - Anticubital Left Blood Culture - Preliminary No growth in 48 hours. 12/16/23 06:35 Sputum, Expectorated/Coughed Gram Stain - Final 12/16/23 06:35 Sputum, Expectorated/Coughed Respiratory Culture - Final 12/15/23 22:41 Mucosa - Nasopharyngeal Respiratory Panel (PCR) - Final 12/15/23 23:00 Urine, Clean Catch Legionella Antigen - Final 12/15/23 23:00 Urine, Clean Catch Streptococcus pneumoniae Antigen (M - Final 12/15/23 18:13 Mucosa - Nose SARS-CoV-2, Influenza & RSV (PCR) - Final Meaningful Use Info Meaningful Use Diagnoses (Choose all that apply): None applicable Discharge Plan Admission Admit Date/Time: 12/15/23 21:11 Primary Reason for Your Visit: shortness of breath Attending Provider: David Tatum Primary Care Provider: Megan Harris Consulting Providers: Octavia Flowers Instructions Additional Instructions / Restrictions: Please take 4 more days of antibiotics and steroids to complete 7-days courses total of both. Follow up with Dr. Bell in the office in the next few weeks. Discharge Orders/Prescriptions Prescriptions: New prednisone 20 mg tablet 40 mg PO DAILY 4 Days Qty: 8 0RF amoxicillin-pot clavulanate 875-125 mg tablet 1 tab PO BID 4 Days Qty: 8 0RF Continued cholecalciferol (vitamin D3) 25 mcg (1,000 unit) capsule 25 mcg PO DAILY omeprazole 20 mg capsule,delayed release(DR/EC) 20 mg PO DAILY Trelegy Ellipta 200-62.5-25 mcg blister with device 1 inh inhalation DAILY amlodipine 5 mg tablet See Rx Instructions .ROUTE .COMPLEX Qty: 90 3RF Dose Instruction: TAKE 1 TABLET DAILY Rx Instructions: TAKE 1 TABLET DAILY cyanocobalamin (vitamin B-12) 1,000 MCG/ML solution 100 mcg SC Q30D Patient Comments: supplement losartan 50 mg tablet 50 mg PO DAILY Qty: 90 3RF hydrochlorothiazide 12.5 mg tablet See Rx Instructions .ROUTE .COMPLEX Qty: 90 3RF Dose Instruction: TAKE 1 TABLET DAILY Rx Instructions: TAKE 1 TABLET DAILY Referrals / Follow Up: Megan Harris DO [Primary Care Provider] - Disposition Disposition (needs filled in before D/C Order can be placed): Home, Self Care Charges/Coding Visit Charges Inpatient E&M: 22493 Disch Hosp >30min
[2023-12-18 11:50] VITALS: O2SAT 90; O2SAT 93
[2023-12-18 12:15] VITALS: BP 134/61; PULSE 72; RESP 18; TEMP 36.6; O2SAT 97
--- NOTE | 2023-12-18 12:44 | PCM.DC.SUM ---
Providers Date of Admission: 12/15/23 Primary Care Physician: Dr. Megan Harris DO Consultations 12/16/23 09:00 Consult: Intelligent Systems Engineer / Pulmonary Medicine Routine Consulting Provider: Gaudencio Shukla Reason for Consult: b/l interstitial pna, infectious vs concern for inflam/autoimmune dz EMERGENT Consult: No MD Notified: Yes Date Notified: 12/16/23 Time Notified: 09:29 Method of Notification: Text Reason For Visit: BL PNA, HYPOXIA Diagnosis Discharge Diagnosis (1) Dyspnea on minimal exertion: Status: Acute Code(s): R06.00 - Dyspnea, unspecified (2) Abnormal CT scan, chest: Status: Acute Code(s): R93.89 - Abnormal findings on diagnostic imaging of other specified body structures Plan Patient is a 78-year-old female who presented to [facility] ED on 12/15/2023 with fever/chills and worsening shortness of breath. 1. Worsening dyspnea on exertion with acute hypoxia, abnormal CT chest findings, concern for community acquired pneumonia ? Presented with worsening dyspnea on exertion over a period of weeks to short months, along with 3-day history of fever/chills. ? Febrile in ED to 102.9F, mildly hypoxic on room air, otherwise normotensive and not tachycardic. Mild leukocytosis of 12 noted, lactic acid normal, no evidence of endorgan dysfunction, sepsis ruled out. ? CTA chest showed bilateral predominantly interstitial infiltrates in both upper and lower lobes with more extensive consolidation right upper lobe associated with partial collapse. ? Infectious workup negative to this point including COVID/flu/RSV swab, full respiratory panel, urine antigens and sputum Gram stain. Blood cultures and respiratory culture pending. ? Procalcitonin negative. ESR mildly elevated at 39, CRP significantly elevated at 175. ? Given concern for possible inflammatory disease, initiated patient on IV Solu-Medrol 40 mg every 8 hours on 12/15. ? Pulmonology following. Has high concern for community-acquired pneumonia but notes the patient has a history of chronic asthma as well. Recommendation is to continue ceftriaxone and azithromycin for now and can also continue steroids for possible asthma exacerbation, with plan to complete 5 to 7-day courses of both. Continue long-acting inhaler and DuoNebs as needed. Follow-up infectious workup. 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 Sibilia on discharge. Chronic medical conditions: ? Chronic asthma with allergic rhinitis: Continue home inhalers. ? Hypertension: Continue home losartan, amlodipine, hydrochlorothiazide. ? GERD: Continue home PPI. DVT prophylaxis: Lovenox CODE STATUS: Full code, verified Expected disposition: Home, 1 to 2 days Total clinical time spent by myself addressing the patient's medical issues, reviewing all the data, and collaborating with patient's care team: 35 minutes. Medications at Discharge Home Medications cyanocobalamin (vitamin B-12) 1,000 mcg/mL injection solution 100 mcg subcut Q30D supplement 06/30/17 cholecalciferol (vitamin D3) 25 mcg (1,000 unit) capsule 25 mcg PO DAILY 09/10/21 losartan 50 mg tablet 50 mg PO DAILY #90 tabs 04/15/23 hydrochlorothiazide 12.5 mg tablet See Rx Instructions .Route .COMPLEX #90 tabs 07/31/23 amlodipine 5 mg tablet See Rx Instructions .Route .COMPLEX #90 tabs 11/03/23 fluticasone fur. 200 mcg-umeclid 62.5 mcg-vilant 25 mcg inhalat.powder (Trelegy Ellipta) 1 inh inhalation DAILY 11/03/23 omeprazole 20 mg capsule,delayed release 20 mg PO DAILY 11/03/23 amoxicillin 875 mg-potassium clavulanate 125 mg tablet 1 tab PO BID 4 days #8 tabs 12/18/23 prednisone 20 mg tablet 40 mg (2 x 20 mg) PO DAILY 4 days #8 tabs 12/18/23 Weight / BMI Weight Weight: 72.7 kg Body Mass Index (BMI) 29.2 ABG / Lab / Microbiology Data 12/18/23 05:00 12/18/23 05:00 Laboratory: Laboratory Results - last 24 hr 12/18/23 05:00: WBC 17.7 H, RBC 3.58 L, Hgb 11.4 L, Hct 34.1 L, MCV 95.3, MCH 31.8, MCHC 33.4, RDW Std Deviation 43.8, RDW Coeff of Eze 12.5, Plt Count 258, MPV 10.9, Sodium 145, Potassium 3.4 L, Chloride 112 H, Carbon Dioxide 26.0, Anion Gap 7, BUN 20 H, Creatinine 0.76, Estim Creat Clear Calc 54.98, Est GFR (MDRD) Af Amer 95, Est GFR (MDRD) Non-Af 78, BUN/Creatinine Ratio 26.2 H, Glucose 115 H, Calcium 9.3 Microbiology: Microbiology 12/15/23 17:28 Blood Culture (Wb) - Anticubital Left Blood Culture - Preliminary No growth in 48 hours. 12/15/23 19:55 Blood Culture (Wb) - Anticubital Left Blood Culture - Preliminary No growth in 48 hours. 12/16/23 06:35 Sputum, Expectorated/Coughed Gram Stain - Final 12/16/23 06:35 Sputum, Expectorated/Coughed Respiratory Culture - Final 12/15/23 22:41 Mucosa - Nasopharyngeal Respiratory Panel (PCR) - Final 12/15/23 23:00 Urine, Clean Catch Legionella Antigen - Final 12/15/23 23:00 Urine, Clean Catch Streptococcus pneumoniae Antigen (M - Final 12/15/23 18:13 Mucosa - Nose SARS-CoV-2, Influenza & RSV (PCR) - Final D/C Instructions Discharge Diet: No restrictions Weight Bearing Status: Full weight bearing Discharge Plan Admission Admit Date/Time: 12/15/23 21:11 Primary Reason for Your Visit: shortness of breath Attending Provider: David Tatum Primary Care Provider: Megan Harris Consulting Providers: Octavia Flowers Instructions Additional Instructions / Restrictions: Please take 4 more days of antibiotics and steroids to complete 7-days courses total of both. Follow up with Dr. Bell in the office in the next few weeks. Discharge Orders/Prescriptions Prescriptions: New prednisone 20 mg tablet 40 mg PO DAILY 4 Days Qty: 8 0RF amoxicillin-pot clavulanate 875-125 mg tablet 1 tab PO BID 4 Days Qty: 8 0RF Continued cholecalciferol (vitamin D3) 25 mcg (1,000 unit) capsule 25 mcg PO DAILY omeprazole 20 mg capsule,delayed release(DR/EC) 20 mg PO DAILY Trelegy Ellipta 200-62.5-25 mcg blister with device 1 inh inhalation DAILY amlodipine 5 mg tablet See Rx Instructions .ROUTE .COMPLEX Qty: 90 3RF Dose Instruction: TAKE 1 TABLET DAILY Rx Instructions: TAKE 1 TABLET DAILY cyanocobalamin (vitamin B-12) 1,000 MCG/ML solution 100 mcg SC Q30D Patient Comments: supplement losartan 50 mg tablet 50 mg PO DAILY Qty: 90 3RF hydrochlorothiazide 12.5 mg tablet See Rx Instructions .ROUTE .COMPLEX Qty: 90 3RF Dose Instruction: TAKE 1 TABLET DAILY Rx Instructions: TAKE 1 TABLET DAILY Referrals / Follow Up: Fast,Megan, DO [Primary Care Provider] - Disposition Disposition (needs filled in before D/C Order can be placed): Home, Self Care
--- NOTE | 2023-12-18 12:55 | CASEMGMT ---
RN CM NOTE: Pt being discharged. Per ARIANA Ruiz, home O2 testing has been completed and she does not qualify for any Home O2. RN CM to room. She denies having any discharge needs. Roger WHEATLEYN RN CM
--- NOTE | 2023-12-18 13:31 | PHA.DC.MC.R ---
Pharmacy [facility] has performed discharge medication reconciliation and counseling for this patient. The patient's discharge medication list was reviewed for discrepancies and discrepancies were resolved. The patient was counseled on the following discharge medications and changes in medications for homegoing were reviewed. The Reason for Use, instructions for use, and potential side effects were reviewed for all new medications. The patient's questions regarding all of their medications were answered. 1. Amoxicillin/clavulanate 875/125 mg PO BID x 4 days 2. Prednisone 40 mg PO dailiy x 4 days The patient was able to verbally demonstrate an understanding of their discharge medications. Medications at Discharge Home Medications cyanocobalamin (vitamin B-12) 1,000 mcg/mL injection solution 100 mcg subcut Q30D supplement 06/30/17 cholecalciferol (vitamin D3) 25 mcg (1,000 unit) capsule 25 mcg PO DAILY 09/10/21 losartan 50 mg tablet 50 mg PO DAILY #90 tabs 04/15/23 hydrochlorothiazide 12.5 mg tablet See Rx Instructions .Route .COMPLEX #90 tabs 07/31/23 amlodipine 5 mg tablet See Rx Instructions .Route .COMPLEX #90 tabs 11/03/23 fluticasone fur. 200 mcg-umeclid 62.5 mcg-vilant 25 mcg inhalat.powder (Trelegy Ellipta) 1 inh inhalation DAILY 11/03/23 omeprazole 20 mg capsule,delayed release 20 mg PO DAILY 11/03/23 amoxicillin 875 mg-potassium clavulanate 125 mg tablet 1 tab PO BID 4 days #8 tabs 12/18/23 prednisone 20 mg tablet 40 mg (2 x 20 mg) PO DAILY 4 days #8 tabs 12/18/23
--- NOTE | 2023-12-18 17:43 | NURSING ---
This RN agrees with Nursing Students charting. Shannon Jackson MSN, RN
== END 2023-12-18 13:48 | disposition home or self-care (01) | DRG 194 ==
LOC: ED 20:13 → MS3 21:30
PROVIDERS: Admitting Provider Family Medicine; Emergency Provider Emergency Medicine; PCP Internal Medicine; Visit Provider Hospitalist
DX: J18.9 Pneumonia, unspecified organism (principal); J45.901 Unspecified asthma with (acute) exacerbation; K76.0 Fatty (change of) liver, not elsewhere classified; L40.50 Arthropathic psoriasis, unspecified; I10 Essential (primary) hypertension; K21.9 Gastro-esophageal reflux disease without esophagitis; E78.5 Hyperlipidemia, unspecified; J30.9 Allergic rhinitis, unspecified; Z79.51 Long term (current) use of inhaled steroids; R07.89 Other chest pain; Z11.52 Encounter for screening for COVID-19; R09.02 Hypoxemia; Z79.899 Other long term (current) drug therapy
CPT/HCPCS: 36415; 70486; 71045; 71260; 80048; 80053; 80076; 81001; 83605; 83735; 84145; 85025; 85027; 85652; 86140; 87040; 87070; 87205; 87449; 87631; 87633; 94640; 94668; 99285; J7030; J7050; Q9967; A4216

== ENCOUNTER → 2024-01-22 | Outpatient (CLI) | payer MEDICARE, OTHER, SELFPAY ==
[2024-01-22 15:45] LABS: Absolute Lymphocyte Count 1.71 X10^3/uL (0.83-4.51); Absolute Neutrophil Count 7.1 X10^3/uL (2.0-7.7); Basophil# 0.05 X10^3/uL; Basophil% 0.5 % (0-1); Eosinophil# 0.05 X10^3/uL; Eosinophils% 0.5 % (0-5); Hematocrit 41.7 % (37-47); Hemoglobin 13.8 g/dL (12.0-15.0); Lymphocyte # 1.71 X10^3/ul (0.83-4.51); Mean Corp Hgb Conc 33.1 g/dL (32-36); Mean Corpuscular Hgb 31.8 pg (27.0-32.0); Mean Corpuscular Volume 96.1 fL (81-99); Mean Platelet Vol. 11.2 fl (6.2-12.0); Monocyte# 0.52 X10^3/uL; Monocyte% 5.5 % (0-10); NRBC Flagged by Analyzer 0 % (0-5); Neutrophil # 7.11 X10^3/uL (2.7-7.7); Platelet Count 264 K/mm3 (150-450); RBC Distribution Width CV 12.3 % (11.6-14.6); RBC Distribution Width SD 43.8 fl (35.1-43.9); Red Blood Count 4.34 M/mm3 (4.2-5.4); White Blood Count 9.5 K/mm3 (4.4-11.0)
[2024-01-22 16:00] LABS: Erythrocyte Sedimentation Rate 10 mm/hr (0-30)
[2024-01-22 16:09] LABS: CRP 4.77 mg/L (0.0-3.0)
[2024-01-22 16:17] LABS: Rubella IgG Reactive (Nonreactive)
[2024-01-25 15:07] LABS: ANTINUCLEAR ANTIBODIES DIRECT Negative (Negative); Angiotensin Convert Enzyme 30 U/L (14-82); Anti-Scleroderma-70 AB <0.2 AI (0.0-0.9); Anti-Smooth Muscle ABS 9 Units (0-19); Anti-dsDNA Ab 2 IU/mL (0-9); CCP IgG Antibodies 5 units (0-19); Cytoplasmic Ab (C-ANCA) <1:20 titer (Neg:<1:20); Perinuclear Ab (P-ANCA) <1:20 titer (Neg:<1:20); RNP Ab <0.2 AI (0.0-0.9); SJOGREN'S Anti-SS-A test < 0.2 AI (0.0-0.9); SJOGREN'S Anti-SS-B test < 0.2 AI (0.0-0.9)
== END | disposition home or self-care (01) ==
PROVIDERS: PCP Internal Medicine; Referring Provider Internal Medicine Pulmonary Disease; Visit Provider Internal Medicine Pulmonary Disease
DX: R06.02 Shortness of breath (principal); I27.20 Pulmonary hypertension, unspecified
CPT/HCPCS: 36415; 82164; 83516; 85025; 85652; 86038; 86140; 86200; 86225; 86235; 86256; 86762

== ENCOUNTER → 2024-02-10 | Outpatient (CLI) | payer MEDICARE, OTHER, SELFPAY ==
[2024-02-10 17:56] LABS: BNP,B-Type NATRIURETIC PEPTIDE 14.8 pg/mL (0-100)
== END | disposition home or self-care (01) ==
LOC: LAB 15:55
PROVIDERS: PCP Internal Medicine; Referring Provider Physician Assistant Medical; Visit Provider Physician Assistant Medical
DX: R06.09 Other forms of dyspnea (principal)
CPT/HCPCS: 36415; 83880

== ENCOUNTER 2024-02-26 10:17 | Outpatient (CLI) | payer MEDICARE, OTHER, SELFPAY ==
[2024-02-26 13:48] LABS: CRP 3.82 mg/L (0.0-3.0); CRP, High Sensitivity Cardiac 4.49 mg/L
== END 2024-02-26 23:59 | disposition home or self-care (01) ==
PROVIDERS: PCP Internal Medicine; Referring Provider Internal Medicine Pulmonary Disease; Visit Provider Internal Medicine Pulmonary Disease
DX: R91.8 Other nonspecific abnormal finding of lung field (principal); R06.02 Shortness of breath; I10 Essential (primary) hypertension
CPT/HCPCS: 36415; 86140; 86141

== ENCOUNTER → 2024-03-03 | Outpatient (CLI) | payer MEDICARE, OTHER, SELFPAY ==
--- NOTE | 2024-03-03 06:33 | CT_ITS ---
ACR Level 3 findings have been noted. An addendum which confirms receipt of the report will follow. STUDY: CT CHEST WITHOUT CONTRAST REASON FOR EXAM: Female, 78 years old. DYSPNEA ON EXERTION, F/U NODULE, ASHTMA, PULMONARY ARTER HTN, NON SMOKER RADIATION DOSAGE (If Supplied By Facility): CTDIvol = ( 7.25 ) mGy, DLP = ( 264.48 ) mGycm TECHNIQUE: Transaxial imaging was performed without the administration of intravenous contrast material. Individualized dose optimization techniques were used for this CT. COMPARISON: None. FINDINGS: Subcentimeter bilateral axillary lymphadenopathy is present. Normal trachea and bilateral mainstem bronchi. Unremarkable esophagus. Moderate consolidation and groundglass edema is present in the central to peripheral aspect of the right upper lobe involving the full aspect of the lobe from the apex to the inferior margin. Patchy reticular nodular densities and groundglass edema is also present throughout left upper lobe, right middle lobe, and right lower lobe consistent with developing pneumonia/ARDS. Multiple small nodules are also scattered throughout the left lower lobe maximally measuring 7 mm in diameter, but no active pulmonary edema or consolidation is seen in this region. Numerous small nodules are intermixed with the consolidation throughout the right upper, middle, and right lower lobes as well as the left upper lobe to lesser extent. A small cavitating nodule is seen in the apex of the left lower lobe on image 45/127 series 4, measuring 8.9 mm in diameter. Moderate cystic emphysematous changes and mild traction bronchiectasis is present in the inferior and hilar region of the right upper lobe. Air bronchograms are also present in the right upper lobe with surrounding consolidation. There is no demonstrated pleural abnormality. Normal heart and pericardium. There are calcifications of the coronary arteries. Normal mediastinum. Normal hilar regions. Normal unenhanced pulmonary arteries. There is atherosclerotic calcification of the aortic arch with tortuosity and elongation of the aortic arch and descending thoracic aorta. There are multi-level degenerative changes of the thoracic spine. There is no demonstrated abnormality of the visualized upper abdomen. CT/Chest without Contrast IMPRESSION: Multifocal pneumonia/developing ARDS. Multiple nodules suggesting septic emboli. 8.9 mm cavitating nodule in the left upper lobe 1. Multifocal moderate pneumonia in addition to numerous nodules that appear to be reticulonodular related to an endobronchial infection/pneumonitis rather than intraparenchymal nodules associated with metastatic disease-although metastatic disease has to be ruled out. Septic emboli may also present in this manner. 2. Close follow-up CT exams should be performed after treatment to look for resolution of the process. If it does not resolve then there would be concern for malignancy with lymphangitic spread. Electronically Signed: Jeffrey Hernandez MD at 9:37 EDT ,
== END | disposition home or self-care (01) ==
PROVIDERS: PCP Internal Medicine; Referring Provider Internal Medicine Pulmonary Disease; Visit Provider Internal Medicine Pulmonary Disease
DX: R91.8 Other nonspecific abnormal finding of lung field (principal); I27.20 Pulmonary hypertension, unspecified
CPT/HCPCS: 71250

== ENCOUNTER 2024-03-16 12:55 | Day surgery (SDC) | payer MEDICARE, OTHER, SELFPAY ==
[2024-03-16] VITALS (10 sets, daily range): BP systolic 93–137; BP diastolic 52–67; PULSE 53–61; RESP 16; TEMP 36.1–36.6; O2SAT 92–96; BMI 28.3
--- NOTE | 2024-03-16 | FLU_PTH ---
PATIENT: NASIM GARZA LOC: EN U#:[id number] AGE/SX: 78/F ROOM: RE03/16/[address]: Dr. Mike Bell MD : 1945 BED: DIS: 03/16/2024 SPEC #: [id number] RECD: 03/16/24 15:51 STATUS: FABIAN CHRISTIE #: [id number] DAVY: 03/16/24 00:[address]: Mike Bell V DEPT: CYTOLOGY RECD BY: Angelina Bray ENTERED: 03/17/24 07:28 SP TYPE: Fluid OTHR DR: Dr. Megan Harris DO Tissues: Bronchus of right upper lobe Procedures: Special Stain Group II Special Stain Group I Surgery Specimen Level IV AFB Stain (control) GMS Stain (control) Cytospin Fluid HEADER OPERATION: Bronchoscopy PRE-OP DIAGNOSIS: Dyspnea on minimal exertion, abnormal chest CT scan TISSUE SUBMITTED: Right upper lobe fluid for cytology DIAGNOSIS CYTOLOGY Right upper lobe lung fluid for cytology (cytospin and cellblock): Negative for malignant cells. Negative for acid-fast bacilli and fungal organisms. No evidence of amyloid deposits. See comment. AM/mr 03/18/24 COMMENT This specimen primarily contains macrophages. Clinical correlation is suggested. AFB, GMS, Congo Red and PAS stains with matched controls were used in the evaluation of this case. Please correlate this case with surgical case [id number]. Case has been reviewed in consultation with Dr. Zimmerman who concurs with the above diagnosis. IDC:SJ CYTOLOGY STUDY Slides are reviewed. CYTOLOGY GROSS Received is 50 ml of red mucoid fluid labeled with the patient's name and and designated per the requisition as Right upper lobe. Submitted for cytology preparation including cell block. Mr 03/17/2024 TC:5 CPT: 57553
--- NOTE | 2024-03-16 | LUNB_PTH ---
PATIENT: NASIM GARZA LOC: EN U#:[id number] AGE/SX: 78/F ROOM: RE03/16/[address]: Dr. Mike Bell MD : 1945 BED: DIS: 03/16/2024 SPEC #: [id number] RECD: 03/16/24 15:51 STATUS: FABIAN CHRISTIE #: [id number] DAVY: 03/16/24 00:[address]: Mike Bell V DEPT: SURGICAL PATHOLOGY RECD BY: Angelina Bray ENTERED: 03/17/24 07:53 SP TYPE: LUNG BX OTHR DR: Dr. Megan Harris DO Tissues: A - Bronchus of right middle lobe B - Bronchus of right upper lobe Procedures: Elastin Stain (control) Trichrome (control) Special Stain Group I Surgery Specimen Level IV AFB Stain (control) GMS Stain (control) Retic (control) HEADER OPERATION: Bronchoscopy PRE-OP DIAGNOSIS: Dyspnea on minimal exertion, abnormal chest CT scan TISSUE SUBMITTED: A- Right middle lobe lung, B- Right upper lobe lung MICROSCOPIC DIAGNOSIS A. Right middle lobe of lung, endobronchial biopsy: Mild interstitial fibrosis and focal pneumocyte hyperplasia No evidence of malignancy. See comment. B. Right upper lobe of lung, endobronchial biopsy: Interstitial fibrosis and focal pneumocyte hyperplasia. Mild chronic inflammation. No evidence of malignancy. See comment. AM/mr 03/18/24 COMMENT A. Elastin, trichrome, reticulin, AFB, GMS, PAS and Congo red stains with matched controls are supportive of diagnosis. B. Elastin, trichrome, reticulin, AFB, GMS, PAS and Congo red stains with matched controls are supportive of diagnosis. Clinical correlation is suggested. Case discussed with Dr. Bell 03/28/[address] Kathleen. Case has been reviewed in consultation with Dr. Zimmerman who concurs with the above diagnosis. IDC:SJ MICROSCOPIC DESCRIPTION There is focal interstitial fibrosis and pneumocyte hyperplasia. There are macrophages within air spaces. These macrophages are PAS negative. There is no evidence of amyloid deposits . GROSS DESCRIPTION A. Received in fixative is one container labeled with the patient's name and designated Endobronchial biopsy- right middle lobe. The specimen consists of multiple irregular fragments of light yost soft tissue that in aggregate measure 2.0 x 0.3 x 0.1 cm. The specimen is totally submitted in one cassette. B. Received in fixative is one container labeled with the patient's name and designated Endobronchial biopsy- right upper lobe. The specimen consists of multiple irregular fragments of light yost soft tissue that in aggregate measure 1.0 x 0.2 x 0.1 cm. The specimen is totally submitted in one cassette. Gonzalez 03/17/2024 TC:3 CPT:27383r1, 75797f2, 43501v7
[2024-03-16] MEDS: Lactated Ringers 1,000 ML 15 ML IV (13:30)
--- NOTE | 2024-03-16 13:47 | PRE.ANES_ITS ---
ASA Classification* ASA Classification ASA Classification: 2 Assessment & Plan Anesthesia* History Source History Obtained from:: Patient and Chart Anesthesia Assessment Anesthesia Assessment: Discussed sedation and/or anesthesia options, risks, benefits, and alternatives with patient/parents/legal guardian. Questions invited. The patient/parents/legal guardian/POA seems to understand and agrees to proceed with anesthesia plan. Reviewed the physical assessment, medical history, allergy history and patient home medications list prior to surgery/procedure/anesthetic and documented any changes. Performed airway and anesthesia risk assessments. 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 Female Yes 03/15/24 09:54 HX of Motion Sickness Yes 03/15/24 09:54 HX of N/V After Surgery No 03/15/24 09:54 Non-Smoker Yes 03/15/24 09:54 Duration of Surgery greater No 03/15/24 09:54 than 60 minutes Number of Risk Factors 3 03/15/24 09:54 PONV Score Moderate Risk 03/15/24 09:54 Height & Weight Height & Weight: Anesthesia: Height & Weight Height 1.57 m 03/16/24 13:27 Weight: 70.307 kg 03/16/24 13:27 Body Mass Index (BMI) 28.3 03/16/24 13:27 Respiratory Assessment Respiratory Assessment - ice skating coach: Respiratory Tract Infection Hx - ice skating coach Hx Respiratory Tract Infection No 03/15/24 09:54 STOP Sleep Apnea STOP Sleep Apnea - ice skating coach: STOP Sleep Apnea - ice skating coach Hx Hypertension Yes: CONTROLLED ON MED 03/15/24 09:54 Hx Sleep Apnea No 03/15/24 09:54 CPAP BIPAP Do you snore loudly (louder No 03/15/24 09:54 than talking or can be heard Do you often feel tired/ No 03/15/24 09:54 fatigued/ sleepy during daytime? Has anyone observed you stop No 03/15/24 09:54 breathing during sleep? STOP Results Negative 03/15/24 09:54 QUESTION #5 FULL TEXT : Do you snore loudly (louder than talking or can be heard through closed doors)? 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 Specify any problems Hx of Preganancy in last 3 No 03/15/24 09:54 Months Nurse Filling Out Transfusion VCHRISTIN 03/15/24 09:54 & Questions: Date: 03/15/24 03/15/24 09:54 Time: 09:55 03/15/24 09:54 Patient unable to answer at this time (ie. confused, unrespo No risk for bleeding /Reproduction History /Reproductive History - ice skating coach: /Reproductive Hx- ice skating coach Hx Now Gestational Age (in weeks): EDC: Hx Hx Para Hx Section SAB Active Medications Active Medications: Current Medications Generic Name Dose Route Start Last Admin Trade Name Freq PRN Reason Stop Dose Admin Lactated Ringer's 1,000 mls @ 15 mls/hr 03/16/24 13:30 03/16/24 13:30 IV 15 mls/hr .Q48H BOBBY Administration Anesthesia Focused Assessment* Temperature: 97 F Pulse Rate: 58 Blood Pressure: 133/64 Respiratory Rate: 16 Pulse Ox: 93 Oxygen Delivery Method: Room Air Airway Assessment Mouth opens (cm): 3 Mallampati Score: III Teeth Condition: Caps/Crowns and Missing (Lower molar dental missing left) Neck Range of motion (ROM): Full ROM Comment: No prescribed medications taken today. Pertinent Findings EKG Pertinent Findings:: Sinus rhythm ECHO Pertinent Findings:: Ejection fraction 70%. Pulmonary artery systolic pressure is 40 indicating pulmonary hypertension Cath Results Pertinent Findings:: 2016 nonobstructive coronary artery disease Consults Pertinent Findings:: Consult by Bobby February 10, 2024. Dyspnea on exertion patient does have pulmonary hypertension on testing. The patient will be seen by Dr. Bell and worked up for her pulmonary risk factors Focused Labs Anesthesia Preop lab: CBC WBC 9.5 K/mm3 (4.4-11.0) 01/22/24 12:47 RBC 4.34 M/mm3 (4.2-5.4) 01/22/24 12:47 Hgb 13.8 g/dL (12.0-15.0) 01/22/24 12:47 Hct 41.7 % (37-47) 01/22/24 12:47 Plt Count 264 K/mm3 (150-450) 01/22/24 12:47 CHEMISTRY Potassium 3.4 mmol/L (3.5-5.1) L 12/18/23 05:00 Sodium 145 mmol/L (136-145) 12/18/23 05:00 Magnesium 2.0 mg/dL (1.6-2.6) 12/15/23 17:28 Phosphorus 3.4 mg/dL (2.5-4.9) 10/29/12 13:06 BUN 20 mg/dL (7-18) H 12/18/23 05:00 Creatinine 0.76 mg/dL (0.55-1.02) 12/18/23 05:00 Glucose 115 mg/dL (74-106) H 12/18/23 05:00 TSH 1.68 uIU/mL (0.358-3.74) 07/01/17 06:05 COAG PT 13.4 SECONDS (11.7-14.9) 07/17/14 08:15 Review of Systems (Anesthesia) ROS Narrative System reviewed and no additional complaints, except as documented. [facility] Medical History Wears hearing aid Wears glasses Post-menopausal Depression History of steroid therapy Arthritis Back pain Gastric reflux Non-smoker Shortness of breath on exertion History of echocardiogram History of stress test Cardiology follow-up encounter MARKS (dyspnea on exertion) Pulmonary artery hypertension Asthma Essential hypertension Class 1 obesity Dysthymic disorder Bradycardia Osteoporosis Hyperlipidemia NAFLD (nonalcoholic fatty liver disease) Vitamin D deficiency Allergic rhinitis Chronic sinusitis Psoriatic arthritis GERD (gastroesophageal reflux disease) DDD (degenerative disc disease) Home Medications ?Medication ?Instructions ?Recorded ?Last Taken ?Type cholecalciferol (vitamin D3) 25 25 mcg PO DAILY 09/10/21 Unknown History mcg (1,000 unit) capsule losartan 50 mg tablet 50 mg PO DAILY #90 tabs 04/15/23 Unknown Rx hydrochlorothiazide 12.5 mg tablet See Rx Instructions .Route 07/31/23 Unknown Rx .COMPLEX #90 tabs amlodipine 5 mg tablet See Rx Instructions .Route 11/03/23 Unknown Rx .COMPLEX #90 tabs escitalopram oxalate 10 mg tablet 20 mg PO DAILY 02/10/24 Unknown History (Lexapro) evolocumab 140 mg/mL subcutaneous 140 mg subcut .Q 2 WEEKS 03/15/24 Unknown History pen injector (Maxx Thrasher) pantoprazole 40 mg tablet,delayed 40 mg PO DAILY 03/15/24 Unknown History release vitamin B complex 1 tab PO DAILY 03/15/24 Unknown History Allergy/AdvReac Type Severity Reaction Status Date / Time ezetimibe (From Zetia) AdvReac myalgia Verified 03/16/24 13:26 Gsfiigy-IFW-NoP Reductase AdvReac myalgia Verified 03/16/24 13:26 Inhibitor Family History Father Colon cancer Mother CAD (coronary artery disease) Brother Colon cancer Sister CAD (coronary artery disease) Sudden cardiac Myocardial infarction Surgical History History of cardiac catheterization History of carpal tunnel surgery of right wrist Hx of colonoscopy History of carpal tunnel release Social History Smoking Status: Never smoker alcohol intake: never substance use type: does not use caffeine: Yes Type: coffee Number of servings: 2 what type of physical activity do you participate in: none seatbelt use: always do you feel safe at home: Yes
--- NOTE | 2024-03-16 14:20 | RAD_ITS ---
PROCEDURE: Fluoroscopy for bronchoscopy. DATE OF EXAMINATION: March 16, 2024. INDICATION: Female, 78 years old. Cavitating nodule in the left upper lobe. FLUOROSCOPY TIME (if supplied): (1 minute and 30 seconds) minutes/seconds. 10.54 mGy. One image was submitted. RAD/Fluoroscopy 1 Hr or Less IMPRESSION: Intraoperative fluoroscopic services provided for bronchoscopy. Electronically Signed: Nikita Gilmore MD at 15:12 EDT ,
[2024-03-16] MEDS: Phenylephrine 0.25% 15 ML NASAL.SRY 15 SPRAY NASAL (14:30)
[2024-03-16] MEDS: Lidocaine 2% (5ml sdv) 5 ML VIAL.MPF (14:33)
[2024-03-16] MEDS: Lidocaine Jelly 2% 20 ML Syringe (URO-JET) 1 APPLIC (14:35)
--- NOTE | 2024-03-16 15:08 | RAD_ITS ---
STUDY: X-RAY CHEST REASON FOR EXAM: Female, 78 years old. BRONCHOSCOPY TECHNIQUE: Single AP portable view of the chest. COMPARISON: Comparison is made with prior study dated December 15, 2023. FINDINGS: There is a 5.4 cm x 1.9 cm linear infiltrate in the right upper lobe. This has improved as compared to prior study. No evidence of pneumothorax. Normal size heart. Normal mediastinum and marilee. Normal visualized pulmonary arteries. Normal visualized aortic arch and descending thoracic aorta. Normal visualized thoracic spine. Calcific tendinitis of the right shoulder. There is no demonstrated abnormality of the visualized soft tissue structures of the upper abdomen. RAD/Chest 1 View (Portable) IMPRESSION: No evidence of pneumothorax following the bronchoscopy. Linear density in the right upper lobe. This is improved as compared to prior study. Electronically Signed: Nikita Gilmore MD at 15:42 EDT ,
--- NOTE | 2024-03-16 15:22 | PCM.POST.ANE ---
Anesthesia: Postop Eval I Current Vital Signs Temperature: 97.3 F Pulse Rate: 60 Blood Pressure: 105/59 Respiratory Rate: 16 Pulse Ox: 96 Oxygen Delivery Method: Nasal Cannula Oxygen Flow Rate (L/min): 2 Assessment Airway patent: Yes Spontaneous unlabored respirations: Yes Mental status: Awake and Calm nausea: No Vomiting: No Anesthesia Complication: No Fluid Hydration Crystalloid volume administer (ml): 900 Total IV fluid infused: 900 Progress Note Anesthesia document: Postop Eval 1 completed: Yes
--- NOTE | 2024-03-16 15:49 | OP.BRONCH_ITS ---
Patient Name: Carolina Choe Procedure Date: 03/16/2024 2:20 PM Date of : 1945 Age: 78 Procedure: Bronchoscopy Indications: Interstitial lung disease Providers: Mike Bell MD Referring MD: Mike Bell MD Medicines: Lidocaine 2% Nebulizer 2.5 mL, Lidocaine applied to nares and subglottic space Complications: No immediate complications Procedure: Pre-Anesthesia Assessment: - A History and Physical has been performed. The patient's medications, allergies and sensitivities have been reviewed. After I obtained informed consent, the scope was passed under direct vision. Throughout the procedure, the patient's blood pressure, pulse, and oxygen saturations were monitored continuously. The bronchoscope was introduced through the left nostril and advanced to the tracheobronchial tree of both lungs. The procedure was accomplished without difficulty. The patient tolerated the procedure well. The total duration of the procedure was 7 hours and 16 minutes. Moderate Sedation: An independent trained observer was present and continuously monitored the patient. Findings: Transbronchial biopsies of an area of infiltration were performed in the right middle lobe using forceps and sent for cell count, bacterial culture, viral smears & culture, and fungal & AFB analysis and cytology. The procedure was guided by fluoroscopy. Biopsy of lung tissue was obtained. Four biopsy passes were performed. Four biopsy samples were obtained. Transbronchial biopsies of a lesion were performed in the anterior segment of the right upper lobe using forceps and sent for cell count, bacterial culture, viral smears & culture, and fungal & AFB analysis and cytology. The procedure was guided by fluoroscopy. Biopsy of lung tissue was obtained. Three biopsy passes were performed. Three biopsy samples were obtained. The bronchoscope was advanced until wedged at the desired location for bronchoalveolar lavage. BAL was performed in the RUL anterior segment (B3) of the lung and sent for cell count, bacterial culture, viral smears & culture, and fungal & AFB analysis and cytology. 120 mL of fluid were instilled. 60 mL were returned. The return was blood-tinged and cloudy. There were no mucoid plugs in the return fluid. Impression: - Interstitial lung disease - Transbronchial lung biopsies were performed. - Transbronchial lung biopsies were performed. - Bronchoalveolar lavage was performed. Recommendation: - Await test results. - Await test results. Procedure Code(s): --- Professional --- 22545, Bronchoscopy, rigid or flexible, including fluoroscopic guidance, when performed; with transbronchial lung biopsy(s), single lobe 26951, Bronchoscopy, rigid or flexible, including fluoroscopic guidance, when performed; with bronchial alveolar lavage Diagnosis Code(s): --- Professional --- J84.9, Interstitial pulmonary disease, unspecified CPT copyright 2021 [employer]. All rights reserved. The codes documented in this report are preliminary and upon cdl team truck driver review may be revised to meet current compliance requirements. MD Mike Garza MD 03/16/2024 3:49:38 PM This report has been signed electronically. Number of Addenda: 0 Note Initiated On: 03/16/2024 2:20 PM
[2024-03-16 16:02] LABS: Cytology, Washings SEE PATHOLOGY REPORT
--- NOTE | 2024-03-16 16:53 | PCM.POSTANE2 ---
Anesthesia Postop Eval I Sum Postop Eval Completion status Anesthesia document: Postop Eval 1 completed: Yes Anesthesia Postop Eval I Summary Anesthesia Postop Eval I Summary: Anesthesia Postop Eval I: Assessment Summary Airway patent Yes 03/16/24 15:26 [email or web address] Spontaneous unlabored Yes 03/16/24 15:26 [email or web address] respirations Mental status Awake,Calm 03/16/24 15:26 [email or web address] nausea No 03/16/24 15:26 [email or web address] Vomiting No 03/16/24 15:26 [email or web address] Anesthesia Postop Eval I: Fluid Summary Crystalloid volume administer 900 03/16/24 15:26 [email or web address] (ml) Colloids volume administered ( ml) Blood Product volume administered (ml) Total IV fluid infused 900 03/16/24 15:26 [email or web address] Anesthesia Postop Eval I: Summary Notes Anesthesia Complication No 03/16/24 15:26 [email or web address] Anesthesia Complication Comment: Post-operative progress note Anesthesia: Postop Eval II Evaluation Mental status: Awake and Calm Pain Level: 0 nausea: No Vomiting: No Progress Note Post-operative progress note: Postop eval at 1632 Complications Anesthesia Complication: No
[2024-03-16 18:51] LABS: Lymphocytes 39 %; Macrophages 14 %; Neutrophil (Segs) 3 %
[2024-03-16 18:56] LABS: Source- Body Fluid BRONCHIAL LAVAGE
[2024-03-16 18:57] LABS: Appearance/Body Fluid CLOUDY; Color/Body Fluid COLORLESS
[2024-03-16 19:05] LABS: Red Cell Count/Body Fluid 1790 /mm3; White Blood Count/Body Fluid 250 /mm3
[2024-03-16 19:09] LABS: Body Fluid QC Type(s) BF3Q
[2024-03-17 10:27] LABS: Other Cell Type/BF 44 %
[2024-03-17 16:11] LABS: Pathologist Comment/Body Fluid Reviewed
[2024-03-18 11:10] LABS: PROTEIN, SYNOVIAL FLUID < 0.2 g/dL (.)
== END 2024-03-16 16:17 | disposition home or self-care (01) ==
LOC: EN 12:57 → AC 12:59
PROVIDERS: PCP Internal Medicine; Referring Provider Internal Medicine Pulmonary Disease; Visit Provider Internal Medicine Pulmonary Disease
PROC: 0BJ08ZZ Inspection of Tracheobronchial Tree, Via Natural or Artificial Opening Endoscopic (ICD-10-PCS; CPT 31622; principal; 2024-03-16 13:30)
DX: J84.10 Pulmonary fibrosis, unspecified (principal); I27.21 Secondary pulmonary arterial hypertension; I10 Essential (primary) hypertension; E78.5 Hyperlipidemia, unspecified; Z79.899 Other long term (current) drug therapy; J45.909 Unspecified asthma, uncomplicated; K21.9 Gastro-esophageal reflux disease without esophagitis; R06.09 Other forms of dyspnea; J98.4 Other disorders of lung
CPT/HCPCS: 31628; 31624; 31632; 71045; 76000; 84157; 87015; 87116; 87206; 88108; 88305; 88312; 88313; 89050; J7120; J2405

== ENCOUNTER → 2024-03-18 | Outpatient (CLI) | payer MEDICARE, OTHER, SELFPAY ==
--- NOTE | 2024-03-18 06:48 | US_ITS ---
STUDY: ABDOMINAL ULTRASOUND - RIGHT UPPER QUADRANT REASON FOR VISIT: Female, 78 years old fatty infiltration of the liver. TECHNIQUE: Ultrasound evaluation of the right upper quadrant was performed with real-time and static bal-scale imaging. TECHNICAL QUALITY: Adequate. COMPARISON: Comparison is made with prior study dated March 06, 2023. FINDINGS: Liver: The liver measures 15.4 cm. There is increased echogenicity consistent with fatty infiltration. The bile ducts are within normal limits. There is hepatic color flow. The direction of portal flow is hepatopetal. There is no demonstrated mass lesion. Gallbladder: Normal distended gallbladder. The gallbladder wall measures 1.3 mm. There is a negative sonographic Arroyo''s sign. There is no pericholecystic fluid. There is a solitary echogenic gallstone within the gallbladder. This measures 1.3 cm x 1.2 cm x 0.8. Findings suggestive of focal fatty sparing adjacent to the gallbladder fossa. Common Bile Duct (C.B.D.): The common bile duct measures 6 mm. Pancreas: Normal size of the head, body and tail of the pancreas. There is normal echogenicity of the pancreas. There is no demonstrated pancreatic mass or cyst. Right Kidney: Normal size of the right kidney. The right kidney measures 10.2 cm x 5.6 cm x 5.1 cm. Normal renal cortex. The right cortex measures 1.1 cm. There is no demonstrated renal mass or cyst. There is no right hydronephrosis. US/Abdomen Limited IMPRESSION: Fatty infiltration of the liver with findings suggestive of focal fatty sparing in the region of the gallbladder fossa. Solitary gallstone. Electronically Signed: Nikita Gilmore MD at 9:42 EDT ,
--- NOTE | 2024-03-18 12:36 | STRESSREP ---
Stress Test Report Exercise myocardial perfusion stress test. 78-year-old lady with a history of chest pain Stress protocol: Resting EKG demonstrates sinus bradycardia with a rate of 49 bpm resting blood pressure is 112/60 mmHg. The patient exercised according to the regular Declan protocol for a total duration of 6 minutes and 15 seconds attaining a maximum heart rate of 113 bpm which was 79% of maximum predicted heart rate; the maximum workload was 7.7 metabolic equivalents. At rest there were no ST or T wave changes noted to suggest ischemia and at peak exercise upsloping ST changes only were noted which did not meet the criteria for ischemia. No clinical angina was noted the test was terminated due to the target heart rate being achieved/fatigue. The peak blood pressure was 140/66 mmHg. Rate-pressure product was 15,000. Myocardial perfusion protocol. 10.9 mCi of technetium 99m sestamibi was injected at rest. The patient exercised according to regular Declan protocol for total duration of 6 minutes and 15 seconds and at peak exercise 33.6 mCi of technetium 99m sestamibi was injected stress images were obtained stress and rest images were reconstructed in comparing the short axis vertical long and horizontal long axis. Gated images were also obtained. Perfusion SPECT analysis: Review of the stress images demonstrate normal uptake of tracer noted in all areas of the myocardium. The resting images similarly demonstrate normal uptake of tracer noted in all areas of the myocardium. No areas of reversibility are noted to suggest ischemia no previous infarct was noted. Gated SPECT analysis: The gated ejection fraction is 74%. Conclusion: Normal exercise myocardial perfusion stress test at a moderate workload Preserved ejection fraction.
== END | disposition home or self-care (01) ==
LOC: CVS 06:43
PROVIDERS: PCP Internal Medicine; Referring Provider Physician Assistant Medical; Visit Provider Physician Assistant Medical
DX: K76.0 Fatty (change of) liver, not elsewhere classified (principal); R06.09 Other forms of dyspnea
CPT/HCPCS: 76705; 78452; 93017; A9500; A4216

== ENCOUNTER → 2024-04-26 | Outpatient (CLI) | payer MEDICARE, OTHER, SELFPAY ==
--- NOTE | 2024-04-26 09:53 | BI_ITS ---
MAMMOGRAPHY - BILATERAL SCREENING REASON FOR EXAM: Female, 78 years old. Routine annual screening examination. PERTINENT HISTORY: Grandmother with breast cancer. Aunt with breast cancer. Prior left stereotactic breast biopsy. TECHNIQUE: Digital bilateral breast casie (3D mammographic acquisition) in the CC and MLO projections. 2-D mediolateral oblique (MLO) and craniocaudad (CC) views of both breasts were obtained. CAD: Full Field Digital Mammography with Computer Added Detection was performed. COMPARISON: Comparison is made with prior study dated April 23, 2023 and April 22, 2022. FINDINGS: Breast Composition: The breasts are heterogeneously dense, which may obscure small masses. There are no dominant masses or suspicious calcifications. Stable bilateral fat containing axillary lymph nodes. Stable bilateral secretory calcifications. No other significant abnormalities are identified. There has been no significant change since the prior study. BI/SCRN MAMM (CAD)W/CASIE BILAT IMPRESSION: Stable bilateral screening mammogram. Yearly follow-up mammogram recommended. (A) ASSESSMENT CATEGORY: BIRADS Category 2: Benign. A letter regarding these results will be sent to the patient by the facility within 30 days. Approximately 10% of breast cancers are not detected by mammography. A normal mammogram should not delay biopsy of a clinically suspicious abnormality. [id number] Electronically Signed: Nikita Gilmore MD at 11:14 EDT ,
--- NOTE | 2024-04-26 09:53 | BD_ITS ---
STUDY: DUAL ENERGY X-RAY ABSORPTIOMETRY / DXA REASON FOR EXAM: Female, 78 years old. V780 -- due in April TECHNIQUE: Bone Mineral Density (BMD) measurements of lumbar spine and bilateral hips were obtained. COMPARISON: Comparison is made with prior study dated April 22, 2022. FINDINGS: Lumbar Spine (L1-L4): g/cm2 (1.121) / T-score (0.7) / Z-score (3.3) Findings are suggestive of normal bone density with a low fracture risk. Left Femur Total: g/cm2 (0.724) / T-score (-1.8) / Z-score (0.1) Left Femoral Neck: g/cm2 (0.683) / T-score (-1.5) / Z-score (0.7) Right Femur Total: g/cm2 (0.731) / T-score (-1.7) / Z-score (0.3) Right Femoral Neck: g/cm2 (0.713) / T-score (-1.2) / Z-score (1.0) The T-Scores on the most recent prior examination were: Lumbar Spine (L1-L4): There has been worsening of bone density since the previous examination. Left Femur Total: which represents a worsening of 4.8%. Right Femur Total: which represents a worsening of 5.5%. BD/Dexa Bone Density Study IMPRESSION: The patient is considered osteopenic as outlined below according to World [place] Organization (WHO) criteria with a moderate fracture risk. There has been worsening of bone density since the previous examination. Reference Information: The T-score is the number of standard deviations above or below the standard which is normal for young adults at their peak bone mineral density. The World Health Organization (WHO) interprets the T-scores as follows: Above -1 Normal bone density Between -1 and -2.5 Osteopenia Equal to / or below -2.5 Osteoporosis As a practical clinical guideline, osteopenia may be graded as follows: Mild -1 through -1.5 Moderate -1.6 through -2.0 Severe -2.1 through -2.4 The Z-score is the number of standard deviations above or below age-matched controls. A Z-score of less than -1.5 would be considered abnormal. References: 1. NIH Osteoporosis and Related Bone Diseases www osteo.org 2. International Society for Clinical Densitometry www iscd.org 3. National Osteoporosis Foundation www nof.org Electronically Signed: Nikita Gilmore MD at 10:32 EDT ,
== END | disposition home or self-care (01) ==
LOC: OPBD 09:52
PROVIDERS: PCP Internal Medicine; Referring Provider Internal Medicine; Visit Provider Internal Medicine
DX: Z12.31 Encounter for screening mammogram for malignant neoplasm of breast (principal); Z78.0 Asymptomatic menopausal state; Z80.3 Family history of malignant neoplasm of breast
CPT/HCPCS: 77063; 77067; 77080

== ENCOUNTER → 2024-12-24 | Outpatient (CLI) | payer MEDICARE, OTHER, SELFPAY ==
[2024-12-24 09:22] LABS: Absolute Lymphocyte Count 2.44 X10^3/uL (0.83-4.51); Absolute Neutrophil Count 4.5 X10^3/uL (2.0-7.7); Basophil# 0.03 X10^3/uL; Basophil% 0.4 % (0-1); Eosinophil# 0.14 X10^3/uL; Eosinophils% 1.9 % (0-5); Hematocrit 32.5 % (37-47); Hemoglobin 10.8 g/dL (12.0-15.0); Lymphocyte # 2.44 X10^3/ul (0.83-4.51); Mean Corp Hgb Conc 33.2 g/dL (32-36); Mean Corpuscular Hgb 36.6 pg (27.0-32.0); Mean Corpuscular Volume 110.2 fL (81-99); Mean Platelet Vol. 9.7 fl (6.2-12.0); Monocyte# 0.28 X10^3/uL; Monocyte% 3.8 % (0-10); NRBC Flagged by Analyzer 0 % (0-5); Neutrophil # 4.48 X10^3/uL (2.7-7.7); Neutrophil % 60.6 % (47-70); Platelet Count 265 K/mm3 (150-450); RBC Distribution Width CV 14.8 % (11.6-14.6); RBC Distribution Width SD 59.8 fl (35.1-43.9); Red Blood Count 2.95 M/mm3 (4.2-5.4); White Blood Count 7.4 K/mm3 (4.4-11.0)
[2024-12-24 10:18] LABS: Hemoglobin A1c 5.6 % (<=5.6)
[2024-12-24 10:21] LABS: ALB/GLOB Ratio 1.1 RATIO (0.9-2.4); AST(SGOT) 26 U/L (<=31); Alanine Aminotransfer ALT/SGPT 14 U/L (<=34); Alkaline Phosphatase 104 U/L (35-104); Anion Gap 10 (5-15); BUN 15 mg/dL (4-19); BUN/Creat Ratio 21.3 RATIO (10-20); Calcium,Total 8.2 mg/dL (7.6-11.0); Carbon Dioxide 24.3 mmol/L (21.0-32.0); Chloride 108 mmol/L (98-108); Cholesterol 129 mg/dL (<=200); Creatinine, Serum 0.72 mg/dL (0.70-1.20); EST Glomerular Filtration Rate 86 (>60); Globulin 2.6 g/dL (2.2-4.2); Glucose 91 mg/dL (70-99); High Density Lipoprotein 55 mg/dL; Low Density Lipoprotein Calc. 59 mg/dL; Potassium 3.5 mmol/L (3.3-5.1); Protein, Total 5.6 g/dL (5.9-8.4); Sodium Level 142 mmol/L (133-145); Total Bilirubin 0.38 mg/dL (0.00-1.30); Triglycerides 75 mg/dL; Very Low Density Lipoprotein 15 mg/dL (5-40); cholesterol:hdl ratio screen 2.34
== END | disposition home or self-care (01) ==
LOC: LAB 08:50
PROVIDERS: PCP Internal Medicine; Referring Provider Internal Medicine; Visit Provider Internal Medicine
DX: I10 Essential (primary) hypertension (principal); R73.01 Impaired fasting glucose; E78.5 Hyperlipidemia, unspecified
CPT/HCPCS: 36415; 80053; 80061; 83036; 85025

== ENCOUNTER → 2025-01-04 | Outpatient (CLI) | payer MEDICARE, OTHER, SELFPAY ==
--- NOTE | 2025-01-04 10:52 | ECHOD_ITS ---
Reason For Study : EDEMA Procedure This was a 2D Doppler, Color Flow transthoracic echocardiogram. Myocardial strain analysis was performed in this exam to aid in the assessment of cardiac function. Exam performed in department. Left Ventricle Normal LV size. The left ventricular ejection fraction is 65 %. No regional wall motion abnormalities noted. Right Ventricle Normal RV size. Normal systolic function. Atria Normal left atrium. Normal right atrium. Mitral Valve There is moderate mitral annular calcification. Tricuspid Valve Normal tricuspid valve. Mild (1+) tricuspid valve insufficiency. Pulmonary artery systolic pressure is 36 mmHg. Aortic Valve Trisinus/trileaflet aortic valve. Pulmonic Valve Normal pulmonic valve. Great Vessels Mildly calcified aortic root. Mildly dilated aortic root. The pulmonary artery is normal size. Inferior vena cava collapse with respiration. Pericardium/Pleural No pericardial effusion. MMode/2D Measurements & Calculations LVIDd: 4.6 cm IVSd: 1.0 cm LAV(MOD- bp): 39.3 ml LVIDs: 3.3 cm LVPWd: 1.0 cm LAV(MOD- bp) Indexed: 22.9 ml/m2 RVDd: 2.7 cm FS: 28.9 % LAV(MOD- sp2): 38.8 ml LAV(MOD- sp4): 34.6 ml SV(MOD- sp4): 45.0 ml LVAd ap4: 21.1 cm2 LVAd ap2: 22.6 cm2 LVLd ap4: 6.4 cm LVLd ap2: 7.4 cm SI(MOD- sp4): 26.2 ml/m2 EDV(MOD-sp4): 60.6 ml EDV(MOD-sp2): 59.9 ml EDV(sp4-el): 58.7 ml EDV(sp2-el): 58.4 ml LVAs ap4: 9.5 cm2 LVAs ap2: 10.1 cm2 LVLs ap4: 5.1 cm LVLs ap2: 4.9 cm ESV(MOD-sp4): 15.6 ml ESV(MOD-sp2): 17.7 ml ESV(sp4-el): 15.1 ml ESV(sp2-el): 17.6 ml EF(MOD-sp4): 74.2 % EF(MOD-sp2): 70.5 % EF(sp4-el): 74.3 % SV(MOD-sp2): 42.2 ml SV(sp4-el): 43.6 ml LA A4 area: 14.2 cm2 SI(MOD-sp2): 24.6 ml/m2 LA dimension(2D): 3.7 cm TAPSE: 2.3 cm RA A4 area: 10.9 cm2 Time Measurements MV dec time: 0.20 sec Doppler Measurements & Calculations MV E max kristopher: 78.8 cm/sec Lat Peak E' Kristopher: 9.5 cm/sec Med Peak E' Kristopher: 8.8 cm/sec MV A max kristopher: 105.1 cm/sec E/E' lat: 8.3 E/E' med: 8.9 MV E/A: 0.75 MV V2 max: 139.8 cm/sec MV P1/2t max kristopher: 83.5 cm/sec Ao V2 max: 147.1 cm/sec MV max P.8 mmHg MV P1/2t: 60.9 msec Ao max P.7 mmHg MV V2 mean: 52.9 cm/sec MV dec slope: 401.1 cm/sec2 Ao V2 mean: 105.1 cm/sec MV mean P.5 mmHg Ao mean P.9 mmHg MV V2 VTI: 35.3 cm MVA(P1/2t): 3.6 cm2 Ao V2 VTI: 32.9 cm AV (velocity ratio): 0.70 LV V1 max: 97.9 cm/sec PA V2 max: 104.0 cm/sec TR max kristopher: 291.1 cm/sec LV V1 max P.8 mmHg PA V2 mean: 72.4 cm/sec TR max P.9 mmHg LV V1 mean P.1 mmHg LV V1 mean: 69.0 cm/sec LV V1 VTI: 22.9 cm ECHO/Echo Complete Interpretation Summary Normal LV size. The left ventricular ejection fraction is 65 %. Mildly calcified aortic root. Mildly dilated aortic root. Pulmonary artery systolic pressure is 36 mmHg. The global longitudinal strain is normal. The global longitudinal strain = -22. 6 % (normal). Ordering Physician: Megan Harris Referring Physician: Megan Harris Performed By: Katy Tuttle, GENIA, RVT
== END | disposition home or self-care (01) ==
LOC: CVS 10:52
PROVIDERS: PCP Internal Medicine; Referring Provider Internal Medicine; Visit Provider Internal Medicine
DX: R60.9 Edema, unspecified (principal); R06.02 Shortness of breath
CPT/HCPCS: 93306

== ENCOUNTER 2025-02-08 11:00 | Outpatient (RCR) | payer MEDICARE, OTHER, SELFPAY ==
--- NOTE | 2025-01-09 11:59 | HP.PTEVAL_ITS ---
Patient's Visit Information Visit Information Visit Information: NASIM GARZA is a 79 year old F referred to Physical Therapy by Dr. Megan Harris DO with a diagnosis of LUMBAR RADICUPATHY. Date of Evaluation: 01/09/25 Physical Therapist: Johnathan Ko PT, Cert MDT, OCS Visit Plan Frequency: 2x /Week Duration: 4 Weeks Plan: PRECAUTIONS : LUNG CA (NO MODALITIES) PT INTERVENTIONS DLS ,POSTURAL EX'S ,LUMBAR FLEXION ,LE FLEXABILITY AND ACTIVITY MODIFICATION Subjective Subjective: This 79 y/o female present to physical therapy with lumbar radicul opathy. Patient has had lumbar symptoms several years. Patient has recently Diagnosed with lung CA and currently immunotherapy and chemotherapy for treatment every [address] recommended PT and no imaging Patient pain located symmtical lumbar buttuck thigh anterior and occasional lateral. Aggravating factors waling /standing in thigh occasionally bending and lifting . Alleviating factors sitting and leaning on cart when shopping. Coughing/sneezing-. Bowel/bladder - Patient pain affects sleeping but no abnormal night pain. Patient has no prior PT or treatment. X-rays showed There is multilevel endplate spondylosis of the lumbar vertebrae. There ismulti-level degenerative disc disease with multi-level disc space narrowing. Facet hypertrophy in the lower lumbar spine. Patient had bone denisty test showed The patient is considered osteopenic as outlined below according to [place] Organization (WHO) criteria with a moderate fracture risk. There has been worsening of bone density since the previous examination.Patient condition affects and QOL. Patient goals to decrease pain. SOCIAL: marries VOCATION: RETIRED Pain Bilateral Back: Pain Intensity (Out of 10): 7 Pain Intensity Range: 10 Right Lower Extremity: Pain Intensity (Out of 10): 7 Pain Intensity Range: 10 Comment: BUTTOCK Objective Objective: POSTURE: mild forward posture GAIT: reciprocal pattern mild forward NEURO: denies paresthesia/tingling , L3-4,L4-5 ,L5-S1 1/3 PALAPTION: tender LS/SI SYMTTRIES: align LUMBAR ROM: flexion min loss .extension severe loss pain ,side glides mod loss MMT: quads/hams 4/5 ,hip flexion 4/5 ,ankle 4/5 FLEXABILITY: hamstrings min tight Special Tests L/S Slump test left side: Negative L/S Slump test right side: Negative L/S Left Straight Leg Raise: Negative L/S Right Straight Leg Raise: Negative Balance/Special Test Scores Oswestry Low Back Score: 25 Goals Goal 1:: Patient to be I with HEP Goal Time Frame: 4-6 Weeks Goal 2:: Patient to improve lumbar ROM for function of recovery to put on shoes shoes Goal Time Frame: 4-6 Weeks Goal 3:: Patient to improve back oswestry score by 5 points to improve QOL and function Goal Time Frame: 4-6 Weeks Goal 4:: Patient to demonstrate 50% improvement of improved function and less pain Goal Time Frame: 4-6 Weeks Rehabilitation Potential Physical Therapy Diagnosis: Patient to has lumbar radiculopathy with lumbar stenosis with pain walking/standing and better sitting as well as comorbities with lung CA thus benefit from skilled PT Rehabilitation Potential: Fair Anticipated Interventions Patient/Client Instruction: Educate patient on: Condition and Plan of Care For the Purpose of:: To decrease pain, To increase ROM, To improve muscle performance and motor function, To improve ability to perform ADL's, To increase tolerance to activity/condition/position, To improve ability of physical actions for home/community/work/leisure, To improve health of tissue, To decrease soft tissue restriction, To increase flexibility/ROM, To reduce risk of recurrence and To prevent re-injury Therapeutic Exercise to Include: Strength training, Postural training, Flexibi lty training and Dynamic Lumbar Stabilization Comment: BLE For the Purpose of:: To decrease pain, To increase ROM, To improve muscle performance and motor function, To improve ability to perform ADL's, To increase tolerance to activity/condition/position, To improve ability of physical actions for home/community/work/leisure, To improve health of tissue, To decrease soft tissue restriction, To increase flexibility/ROM and To improve tolerance to ADL's Text: Thank you for the opportunity to evaluate your patient. For Medicare and Medicare HMO plans, please review the plan of care and approve it. It will need to be FAXED BACK to us at [phone] for Medicare purposes. For Medicare only, by signing this I certify the plan of care. Please let me know if there are questions or concerns regarding this plan of care. Physician Signature: Date:
--- NOTE | 2025-02-08 11:34 | HP.PTDCSUM ---
Discharge Summary D/C summary: It has been my pleasure to treat NASIM GARZA referred by Dr. Megan Harris DO, with the diagnosis of LUMBAR RADICUPATHY for a total of 7 visit(s). Discharge Date: 02/08/25 Please see the following information for a summary of their discharge status. Subjective Subjective: Want to do ex's on own pain conts ro be right hamstrings glut Pain Bilateral Back: Pain Intensity (Out of 10): 4 Right Lower Extremity: Pain Intensity (Out of 10): 0 Overall Improvement % Improvement: 50 Objective Objective/Function: POSTURE: mild forward posture GAIT: reciprocal pattern mild forward NEURO: denies paresthesia/tingling , L3-4,L4-5 ,L5-S1 1/3 PALAPTION: tender LS/SI SYMTTRIES: align LUMBAR ROM: flexion min loss .extension severe loss pain ,side glides mod loss MMT: quads/hams 4/5 ,hip flexion 4/5 ,ankle 4/5 FLEXABILITY: hamstrings min tight Goals Goal 1:: Patient to be I with HEP Goal Progress: Goal Met Goal 2:: Patient to improve lumbar ROM for function of recovery to put on shoes shoes Goal Progress: Goal Met Goal 3:: Patient to improve back oswestry score by 5 points to improve QOL and function Goal Progress: Goal Met Goal 4:: Patient to demonstrate 50% improvement of improved function and less pain Goal Progress: Goal Met Plan Plan: D/C TO HEP D/C Information Discharge Comments: HEP d/c sentence: If there are questions or concerns regarding this patient's physical therapy, please feel free to call me at [phone]. Thank you for the referral of this patient. Sincerely, Johnathan Ko, PT, Cert MDT, OCS Balance/Gait/Functional tests Balance/Special Test Scores Oswestry Low Back Score: 6 Improvement % Improvement: 50
== END 2025-02-08 19:00 | disposition home or self-care (01) ==
LOC: PT 11:00
PROVIDERS: PCP Internal Medicine; Referring Provider Internal Medicine; Visit Provider Internal Medicine
DX: M54.16 Radiculopathy, lumbar region (principal)
CPT/HCPCS: 97110; 97162; 97530

== ENCOUNTER → 2025-02-10 | Outpatient (CLI) | payer MEDICARE, OTHER, SELFPAY ==
[2025-02-10 15:43] LABS: Bacteria 0 SEEN /hpf (None Seen); Mucous, Urine 0 SEEN /hpf (<or=2+)
[2025-02-10 17:55] LABS: Absolute Lymphocyte Count 1.25 X10^3/uL (0.83-4.51); Basophil# 0.01 X10^3/uL; Basophil% 0.4 % (0-1); Eosinophil# 0.04 X10^3/uL; Eosinophils% 1.4 % (0-5); Hemoglobin 10.1 g/dL (12.0-15.0); Lymphocyte # 1.25 X10^3/ul (0.83-4.51); Lymphocyte % 44.6 % (19-41); Mean Corp Hgb Conc 33.7 g/dL (32-36); Mean Corpuscular Hgb 35.4 pg (27.0-32.0); Mean Corpuscular Volume 105.3 fL (81-99); Mean Platelet Vol. 11.5 fl (6.2-12.0); Monocyte# 0.45 X10^3/uL; Monocyte% 16.1 % (0-10); NRBC Flagged by Analyzer 0 % (0-5); Neutrophil # 1.03 X10^3/uL (2.7-7.7); Neutrophil % 36.8 % (47-70); POSITIVE COUNT YES; POSITIVE MORPHOLOGY YES; RBC Distribution Width CV 12.4 % (11.6-14.6); RBC Distribution Width SD 47.8 fl (35.1-43.9); Red Blood Count 2.85 M/mm3 (4.2-5.4); White Blood Count 2.8 K/mm3 (4.4-11.0)
[2025-02-10 18:04] LABS: Color, Urine Yellow (Yellow); Glucose, Dipstick Normal (Normal); Ketone-Dipstick Negative (Negative); Leukocyte Esterase-Dipstick 100 /ul (Negative); Nitrite-Dipstick Negative (Negative); Occult Blood-Urine 10 /ul (Negative); Protein-Dipstick 15 mg/dl (Negative); Specific Gravity, Urine 1.015 (1.002-1.030); Urine Bilirubin Dipstick Negative (Negative); Urine Clarity Cloudy (Clear); Urine Urobilinogen Normal (Normal)
[2025-02-10 18:08] LABS: ALB/GLOB Ratio 1.1 RATIO (0.9-2.4); AST(SGOT) 30 U/L (<=31); Alanine Aminotransfer ALT/SGPT 15 U/L (<=34); Alkaline Phosphatase 87 U/L (35-104); Anion Gap 10 (5-15); BUN 17 mg/dL (4-19); Calcium,Total 8.2 mg/dL (7.6-11.0); Carbon Dioxide 26.3 mmol/L (21.0-32.0); Chloride 98 mmol/L (98-108); EST Glomerular Filtration Rate 88 (>60); Globulin 2.7 g/dL (2.2-4.2); Glucose 115 mg/dL (70-99); Potassium 3.4 mmol/L (3.3-5.1); Protein, Total 5.6 g/dL (5.9-8.4); Sodium Level 135 mmol/L (133-145); Total Bilirubin 0.37 mg/dL (0.00-1.30)
[2025-02-10 18:47] LABS: Pro- Brain NATRIURETIC PEPTIDE 97 pg/mL (<=1800)
[2025-02-10 19:39] LABS: Squamous Epithelial Cells - UA 10-25 SEEN /hpf (5-10); White Blood Cells 10-25 SEEN /hpf (0-5)
[2025-02-10 19:42] LABS: Red Blood Cells-Urine 0-5 SEEN /hpf (0-5)
[2025-02-10 22:12] LABS: Platelet Count 44 K/mm3 (150-450)
[2025-02-10 22:13] LABS: Differential Indicated SCAN CRITERIA MET
== END | disposition home or self-care (01) ==
LOC: MTLAB 15:28
PROVIDERS: PCP Internal Medicine; Referring Provider Internal Medicine; Visit Provider Internal Medicine
DX: R60.0 Localized edema (principal)
CPT/HCPCS: 36415; 80053; 81001; 83880; 84443; 85025

== ENCOUNTER → 2025-02-13 | Outpatient (CLI) | payer MEDICARE, OTHER, SELFPAY ==
[2025-02-13 15:57] LABS: Absolute Lymphocyte Count 1.25 X10^3/uL (0.83-4.51); Absolute Neutrophil Count 1.7 X10^3/uL (2.0-7.7); Basophil# 0.01 X10^3/uL; Basophil% 0.3 % (0-1); Eosinophil# 0.04 X10^3/uL; Eosinophils% 1.1 % (0-5); Hematocrit 31.5 % (37-47); Hemoglobin 10.5 g/dL (12.0-15.0); Lymphocyte # 1.25 X10^3/ul (0.83-4.51); Mean Corp Hgb Conc 33.3 g/dL (32-36); Mean Corpuscular Hgb 35.8 pg (27.0-32.0); Mean Corpuscular Volume 107.5 fL (81-99); Mean Platelet Vol. 11.5 fl (6.2-12.0); Monocyte# 0.62 X10^3/uL; Monocyte% 16.8 % (0-10); NRBC Flagged by Analyzer 0 % (0-5); Neutrophil # 1.74 X10^3/uL (2.7-7.7); Neutrophil % 47.3 % (47-70); POSITIVE COUNT YES; Platelet Count 80 K/mm3 (150-450); RBC Distribution Width CV 12.9 % (11.6-14.6); RBC Distribution Width SD 50.1 fl (35.1-43.9); Red Blood Count 2.93 M/mm3 (4.2-5.4); White Blood Count 3.7 K/mm3 (4.4-11.0)
== END | disposition home or self-care (01) ==
LOC: LABSPEC 15:35
PROVIDERS: PCP Internal Medicine; Referring Provider Internal Medicine; Visit Provider Internal Medicine
DX: D69.6 Thrombocytopenia, unspecified (principal)
CPT/HCPCS: 85025

== ENCOUNTER → 2025-04-27 | Outpatient (CLI) | payer MEDICARE, OTHER, SELFPAY ==
--- NOTE | 2025-04-27 09:58 | BI_ITS ---
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 Aunt with breast cancer. Prior left stereotactic breast biopsy. TECHNIQUE: SCRN MAMM (CAD)W/CASIE BILAT COMPARISON: Prior exam(s) dated April 26, 2024.. FINDINGS: TISSUE DENSITY: The breasts are heterogeneously dense, which may obscure small masses. Bilateral Breast Mammographic Findings: No significant masses, calcifications or other abnormalities are identified. Stable bilateral secretory calcifications. Stable benign-appearing bilateral axillary lymph nodes. No suspicious masses, areas of developing architectural distortion, or suspicious calcifications. There has been no significant interval change. BI/SCRN MAMM (CAD)W/CASIE BILAT IMPRESSION: Stable examination. OVERALL FINAL ASSESSMENT BI-RADS 2: BENIGN RECOMMENDATION: Routine annual follow-up in 1 Year A letter with findings and recommendations will be mailed to the patient. Reading Location: [facility]
== END | disposition home or self-care (01) ==
LOC: OPBI 09:56
PROVIDERS: PCP Internal Medicine; Referring Provider Internal Medicine; Visit Provider Internal Medicine
DX: Z12.31 Encounter for screening mammogram for malignant neoplasm of breast (principal); Z80.3 Family history of malignant neoplasm of breast
CPT/HCPCS: 77063; 77067

== ENCOUNTER → 2025-05-25 | Outpatient (CLI) | payer MEDICARE, OTHER, SELFPAY ==
--- NOTE | 2025-05-25 08:57 | US_ITS ---
PROCEDURE: ABD LIMITED W/ ELASTOGRAPHY REASON FOR EXAM: ABD LIMITED W/ ELASTOG Fatty infiltration of the liver. COMPARISON: March 18, 2024. TECHNIQUE: Right upper quadrant abdominal ultrasound. [employer] ElastQ Imaging shear wave elastography for non-invasive assessment of liver tissue stiffness. [employer] EPIQ Elite. FINDINGS: LIVER: Size: Unremarkable Length: 13.2 cm Echotexture: Diffusely echogenic suggesting fatty infiltration Contour: Normal Lesions: None identified Elastography: EQI Med: 5.1 kPa EQI Med Kristopher: 1.3 m/s IQR/Med: 23.5 %* GALLBLADDER: There is a solitary gallstone in the gallbladder lumen measuring 1.3 cm x 0.8 cm x 0.6 cm. COMMON BILE DUCT: Dilated measuring up to 7.6 mm. . PANCREAS: Normal Visualized portions of the right kidney are unremarkable. No right upper quadrant ascites. Incidental note is made of a right pleural effusion. US/ABD Limited w/ Elastography IMPRESSION: NO TO MILD HEPATIC FIBROSIS Diffuse fatty infiltration of the liver. Solitary gallstone. Reference Values: SRU <1.37 m/s (5.7kPa): No to mild fibrosis 1.37 m/s - 2.2 m/s: Moderate to severe fibrosis >2.2 m/s (15kPa): Significant fibrosis / cirrhosis METAVIR Score F2 or higher: 1.34 m/s (5.7kPa) F3 or higher: 1.55 m/s (7.3kPa) F4: 1.80 m/s (10kPa) * If the IQR/Med is >30%, the variance in the measurements is a large and the a ccuracy of the measurement may be in question. Reading Location: [place] [id number]
== END | disposition home or self-care (01) ==
LOC: US 08:53
PROVIDERS: PCP Internal Medicine; Referring Provider Internal Medicine; Visit Provider Internal Medicine
DX: K76.0 Fatty (change of) liver, not elsewhere classified (principal)
CPT/HCPCS: 76705; 76981

== ENCOUNTER 2025-05-30 14:56 | Outpatient (CLI) | payer MEDICARE, OTHER, SELFPAY ==
[2025-05-30 15:49] LABS: AST(SGOT) 34 U/L (<=31); Alanine Aminotransfer ALT/SGPT 29 U/L (<=34); Albumin, Serum 2.3 g/dL (3.4-4.8); Alkaline Phosphatase 113 U/L (35-104); Anion Gap 8 (5-15); BUN 12 mg/dL (4-19); BUN/Creat Ratio 16.8 RATIO (10-20); Calcium,Total 7.6 mg/dL (7.6-11.0); Carbon Dioxide 25.8 mmol/L (21.0-32.0); Chloride 104 mmol/L (98-108); Globulin 2.3 g/dL (2.2-4.2); Glucose 124 mg/dL (70-99); Potassium 3.8 mmol/L (3.3-5.1); Pro- Brain NATRIURETIC PEPTIDE 175 pg/mL (<=1800)
== END 2025-05-30 23:59 | disposition home or self-care (01) ==
LOC: LABSPEC 14:59
PROVIDERS: PCP Internal Medicine; Referring Provider Internal Medicine; Visit Provider Internal Medicine
DX: R60.0 Localized edema (principal); E46 Unspecified protein-calorie malnutrition; R06.02 Shortness of breath
CPT/HCPCS: 80053; 83880

== ENCOUNTER 2025-06-02 11:09 | Outpatient (CLI) | payer MEDICARE, OTHER, SELFPAY ==
[2025-06-02 11:30] VITALS: BP 117/66; PULSE 74; RESP 16; TEMP 36.2; O2SAT 95; BMI 33.8
[2025-06-02] MEDS: Ceftriaxone 2 GM in 0.9% Normal Saline (50mL MB+) 50 ML IV (11:49)
[2025-06-02] MEDS: 0.9% NaCl IVPB Med Flush (100mL) 15 ML IV (11:50)
[2025-06-02] MEDS: 0.9% NaCl Peripheral Flush Adult IV (12:49)
[2025-06-02 12:50] VITALS: BP 104/60; PULSE 71; RESP 16; TEMP 36.2; O2SAT 96
== END 2025-06-02 23:59 | disposition home or self-care (01) ==
LOC: MEDOUTP 11:09
PROVIDERS: PCP Internal Medicine; Referring Provider Internal Medicine; Visit Provider Internal Medicine
DX: L03.90 Cellulitis, unspecified (principal)
CPT/HCPCS: 96365; A4216; J0696

== ENCOUNTER 2025-06-03 09:50 | Outpatient (CLI) | payer MEDICARE, OTHER, SELFPAY ==
[2025-06-03 10:04] VITALS: BP 124/60; PULSE 65; RESP 18; TEMP 36.6; O2SAT 93
[2025-06-03] MEDS: Ceftriaxone 2 GM in 0.9% Normal Saline (50mL MB+) 50 ML IV (10:05)
[2025-06-03] MEDS: 0.9% NaCl IVPB Med Flush (250 mL) 15 ML IV (10:05)
[2025-06-03] MEDS: 0.9% NaCl Peripheral Flush Adult IV ×2 (10:06→10:47)
== END 2025-06-03 10:53 | disposition home or self-care (01) ==
LOC: MEDOUTP 09:53 → MS3 09:54
PROVIDERS: PCP Internal Medicine; Referring Provider Internal Medicine; Visit Provider Internal Medicine
DX: L03.90 Cellulitis, unspecified (principal)
CPT/HCPCS: 96365; A4216; J0696

== ENCOUNTER 2025-06-04 10:20 | Outpatient (CLI) | payer MEDICARE, OTHER, SELFPAY ==
[2025-06-04] MEDS: Ceftriaxone 2 GM in 0.9% Normal Saline (50mL MB+) 50 ML IV (10:41)
[2025-06-04] MEDS: 0.9% NaCl Peripheral Flush Adult IV (10:54)
[2025-06-04 10:55] VITALS: BP 120/67; PULSE 78; RESP 19; TEMP 36.6; O2SAT 96
== END 2025-06-04 11:34 | disposition home or self-care (01) ==
LOC: MEDOUTP 10:20 → PCU 10:21
PROVIDERS: PCP Internal Medicine; Referring Provider Internal Medicine; Visit Provider Internal Medicine
DX: L03.90 Cellulitis, unspecified (principal)
CPT/HCPCS: 96365; A4216; J0696

== ENCOUNTER 2025-06-05 10:01 | Emergency (ER) | payer MEDICARE, OTHER, SELFPAY ==
[2025-06-05 10:01] VITALS: BP 114/65; PULSE 83; RESP 18; TEMP 37.1; O2SAT 96; BMI 33.9
--- NOTE | 2025-06-05 10:27 | VDLE_ITS ---
Reason For Study Reason For Study: RLE Swelling RIGHT LEFT GSV is normal. CFV is compressible, spontaneous, phasic, competent, CFV is compressible, spontaneous, phasic, competent and demonstrates normal augmentation. and demonstrates normal augmentation. FV is compressible, spontaneous, phasic, competent and demonstrates normal augmentation. POP V is compressible, spontaneous, phasic, competent and demonstrates normal augmentation. T/P Trunk is compressible. PTV is compressible. RT PerV is compressible. Procedure This is a venous duplex using B-mode, color flow and spectral Doppler. Exam performed portable in ED. A preliminary report was called and/or faxed to Dr. Sanchez. VL/Venous Duplex US, Unilateral Interpretation Summary Deep veins of the right lower extremity are patent and compressible segmentally . There is no evidence of right lower extremity deep vein thrombosis. Valvular competence appears intact within the p roximal deep venous system on the right . The right great saphenous vein appears patent and compressible segmentally. The left common femoral vein is patent and compressible . Ordering Physician: Brent Sanchez Referring Physician: Megan Harris Performed By: Michelle Escobar, GENIA, RVT
--- NOTE | 2025-06-05 10:27 | EKG12_ITS ---
Test Reason : LEG SWELLING Blood Pressure : */* mmHG Vent. Rate : 69 BPM Atrial Rate : 69 BPM P-R Int : 134 ms QRS Dur : 86 ms QT Int : 438 ms P-R-T Axes : 18 -26 -28 degrees QTcB Int : 469 ms Normal sinus rhythm Low voltage QRS Nonspecific ST and T wave abnormality Abnormal ECG Confirmed by BONG BRYSON ([id number]), book editor MANDY WOMACK ([id number]) on 06/06/2025 1:07:25 PM Referred By: Confirmed By: BONG BRYSON
--- NOTE | 2025-06-05 11:20 | RAD_ITS ---
PROCEDURE: CHEST PA AND LATERAL 06/05/2025 REASON FOR EXAM: DYSPNEA ON EXERTION, ANASARCA, STAGE IV LUNG CANCE TECHNIQUE: CHEST PA AND LATERAL COMPARISON: March 16, 2024 FINDINGS: There is a central access port on the right with its tip centrally located. The heart size is moderately enlarged. Central vascularity appears increased. There is masslike consolidation in the right upper lung, similar to the prior. There is a moderate right and left pleural effusion, increased. There is no pneumothorax. There is no acute bony abnormality. Aortic calcifications are noted. RAD/Chest PA and Lateral IMPRESSION: The heart size is moderately enlarged. Central vascularity appears increased. There is masslike consolidation in the right upper lung, similar to the prior. T Here is a moderate right and left pleural effusion, increased. Reading Location: [place]
[2025-06-05 11:22] LABS: Hematocrit 28.6 % (37-47); Hemoglobin 9.5 g/dL (12.0-15.0); Immature Granulocytes Count 0.040 X10^3/uL (0.0-0.0); Mean Corp Hgb Conc 33.2 g/dL (32-36); Mean Corpuscular Volume 112.2 fL (81-99); Mean Platelet Vol. 10.0 fl (6.2-12.0); NRBC Flagged by Analyzer 0 % (0-5); Platelet Count 227 K/mm3 (150-450); RBC Distribution Width CV 15.7 % (11.6-14.6); RBC Distribution Width SD 62.4 fl (35.1-43.9); Red Blood Count 2.55 M/mm3 (4.2-5.4); White Blood Count 3.9 K/mm3 (4.4-11.0)
--- NOTE | 2025-06-05 11:45 | EX.ED.DYSGE1 ---
HPI History of Present Illness Chief Complaint: Lower Extremity Injury Detail of Chief Complaint: Right lower extremity not getting better with IV antibiotics Informant: patient and family Onset/Context/Timing Onset: Weeks Context: Sudden Onset Timing: Continuous Quality: Increased swelling, dyspnea, Location: Total body swelling Current Severity: Moderate Maximum Severity: Moderate Worsened by: Unknown per patient Relieved by: Nothing Associated Symptoms Associated Symptoms: History of stage IV adenocarcinoma of the lung Narrative Narrative: Patient is a 79-year-old woman. She has history of stage IV lung cancer treated by Dr. Leon Jung. She has been treated with IV antibiotics for presumed infection of her right leg. There is been no improvement. She did have a venous duplex study 2 weeks ago that was negative. She denies fever, chills night sweats. She denies weight loss. She denies upper respiratory symptoms. She denies headache, visual, ocular auditory symptoms. She denies chest pain of any type, orthopnea, PND. She does report edema of both lower extremities and upper extremities. Right lower extremity is the worst. She has no history of heart problems to her knowledge. She does have a history of dyspnea on exertion reviewing prior records. She also has a history of hypertension. Patient denies any urologic symptoms. Prior similar symptoms: Yes Recent Illness/Hospitalization: Yes [facility] Medical History Wears hearing aid Wears glasses Post-menopausal Depression History of steroid therapy Arthritis Back pain Gastric reflux Non-smoker Shortness of breath on exertion History of echocardiogram History of stress test Cardiology follow-up encounter MARKS (dyspnea on exertion) Pulmonary artery hypertension Asthma Essential hypertension Class 1 obesity Dysthymic disorder Bradycardia Osteoporosis Hyperlipidemia NAFLD (nonalcoholic fatty liver disease) Vitamin D deficiency Allergic rhinitis Chronic sinusitis Psoriatic arthritis GERD (gastroesophageal reflux disease) DDD (degenerative disc disease) Home Medications ?Medication ?Instructions ?Recorded ?Last Taken ?Type escitalopram oxalate 10 mg tablet 20 mg PO DAILY 02/10/24 06/04/25 History (Lexapro) evolocumab 140 mg/mL subcutaneous 140 mg subcut .Q 2 WEEKS 03/15/24 05/22/25 History pen injector (Repewelina Galvinick) vitamin B complex 1 tab PO DAILY 03/15/24 06/04/25 History losartan 50 mg tablet 50 mg PO DAILY #90 TABLETS 04/19/24 06/04/25 Rx budesonide-formoterol HFA 160 2 inh inhalation BID 06/02/25 06/05/25 History mcg-4.5 mcg/actuation aerosol inhaler (Symbicort) folic acid 1 mg tablet 1 mg PO DAILY 06/02/25 06/04/25 History olanzapine 5 mg tablet (Zyprexa) 5 mg PO QHS 06/02/25 06/04/25 History ondansetron 8 mg disintegrating 8 mg PO Q8H PRN nausea and vomiting 06/02/25 Unknown History tablet potassium chloride 20 mEq 20 meq PO BID 06/02/25 06/04/25 History tablet,extended release(part/cryst) (Klor-Con M) zinc 50 mg tablet 50 mg PO DAILY 06/02/25 06/04/25 History hydrochlorothiazide 12.5 mg tablet 12.5 mg PO DAILY 06/05/25 06/04/25 History Allergy/AdvReac Type Severity Reaction Status Date / Time ezetimibe (From Zetia) AdvReac myalgia Verified 06/02/25 11:29 [id number] Reductase AdvReac myalgia Verified 06/02/25 11:29 Inhibitor Family History Father Colon cancer Mother CAD (coronary artery disease) Brother Colon cancer Sister CAD (coronary artery disease) Sudden cardiac Myocardial infarction Surgical History History of cardiac catheterization History of carpal tunnel surgery of right wrist Hx of colonoscopy History of carpal tunnel release Social History Smoking Status: Never smoker alcohol intake: never substance use type: does not use caffeine: Yes Type: coffee Number of servings: 2 what type of physical activity do you participate in: none seatbelt use: always do you feel safe at home: Yes ROS ROS ED Constitutional Constitutional ED: Denies chills, fever(s), subjective, sweats or weight loss Eyes Eyes: Denies blurry vision or change in vision ENT ENT ED: Denies rhinorrhea or sore throat Cardiovascular Cardiovascular: Denies chest pain, orthopnea, palpitations or paroxysmal nocturnal dyspnea Respiratory/Chest Respiratory/Chest: Reports dyspnea on exertion; Denies cough, dyspnea, orthopnea or paroxysmal nocturnal dyspnea Gastrointestinal Gastrointestinal: Denies abdominal pain, constipation, diarrhea, melena, nausea or vomiting Genitourinary Genitourinary ED: Denies dysuria, hematuria or urinary frequency Musculoskeletal Musculoskeletal: Denies back pain Integumentary Reports rash Neurologic Neurologic: Denies headache(s) or paresthesias Endocrine Endocrinology: Denies cold intolerance or heat intolerance Hematologic/Lymphatic Hematologic/Lymphatic: Reports systems reviewed and no addt'l complaints, except as documented EXAM Physical Exam Const Vital Signs: 06/05/25 10:01 06/05/25 12:01 Temperature 98.7 F Temperature Source Oral Pulse Rate 83 66 Respiratory Rate 18 Blood Pressure 114/65 127/64 H Blood Pressure Mean 81 85 Pulse Ox 96 94 Oxygen Delivery Method Room Air Room Air Positive well nourished and well developed Constitutional Narrative: BMI is 33.9. General Appearance ED: well developed HEENT Reports moist mucous membranes HEENT Narrative: Head is atraumatic normocephalic. Ears normal. Nares patent Eyes PERRL and EOMs intact bilaterally General Eye ED: Negative for pale conjunctiva or scleral icterus Neck no lymphadenopathy, supple and no JVD Chest Wall inspection of chest normal and palpation of chest normal Resp normal respiratory effort and clear to auscultation bilaterally Cardio regular rate, regular rhythm, S1 normal heart sound, S2 normal heart sound and no murmurs GI normal to inspection, nondistended, normoactive bowel sounds, non-tender, non-distended and no masses; Negative for hepatosplenomegaly Back/Spine no CVA tenderness Extremity Extremity Narrative: Patient has edema of all of her extremities right lower extremity is worst. My opinion patient has venous stasis dermatitis. However this is her significant asymmetry and she is reporting discoloration compared to the other side will obtain venous duplex study especially since she does have risk factors and per Wells score is moderate probability for DVT. Neuro oriented x3, CN's II-XII intact bilaterally and no sensory deficits noted Sensorium / Orientation: alert Psych mental status grossly normal Skin no rashes or lesions noted, no wounds and skin turgor normal Skin Narrative: Patient has a blister anterior mid right leg. There is erythematous changes without induration, lymphangitis, lymphadenopathy of the right lower extremity. MDM MDM MDM Narrative Medical decision making narrative: Need to rule out DVT. If DVT is not present suspect her anasarca is due to metastatic lung cancer. Will obtain chest x-ray to see if there is any evidence of cephalization/congestive heart failure. CBC to assess for anemia since she appears pale. Will obtain comprehensive metabolic panel since renal function, electrolytes and liver enzymes. History & Record Review Additional record(s) reviewed:: Prior outpatient record, Prior ED visit and Prior labs Lab Data Attestation: I reviewed the patient's lab results. Lab results narrative: CBC reveals neutropenia. She has been neutropenic on prior results. H&H is slightly lower than normal at 9.5 and 28.6. MCV is elevated at 112. Need to evaluate for pernicious anemia and folate deficiency. [facility]etence metabolic panel is remarkable for a low total protein and albumin of 4.3 and 2.1. This is slightly lower than prior. Liver enzymes are unremarkable. Labs: Laboratory Results - last 24 hr 06/05/25 11:10 WBC 3.9 L RBC 2.55 L Hgb 9.5 L Hct 28.6 L MCV 112.2 H MCH 37.3 H MCHC 33.2 RDW Std Deviation 62.4 H RDW Coeff of Eze 15.7 H Plt Count 227 MPV 10.0 Immature Gran % (Auto) 1.000 H Neut % (Auto) 64.9 Lymph % (Auto) 19.1 Callahan % (Auto) 12.9 H Eos % (Auto) 1.8 Baso % (Auto) 0.3 Absolute Neuts (auto) 2.5 Absolute Lymphs (auto) 0.74 L Nucleated RBC % 0 Sodium 140 Potassium 3.2 L Chloride 106 Carbon Dioxide 24.9 Anion Gap 9 BUN 11 Creatinine 0.66 L Estim Creat Clear Calc 58.31 Est GFR (MDRD) Non-Af 90 BUN/Creatinine Ratio 16.9 Glucose 118 H Lactic Acid 1.8 Calcium 7.5 L Total Bilirubin < 0.15 AST 24 ALT 20 Alkaline Phosphatase 106 H Troponin T High Sens 7 NT pro BNP II 149 Total Protein 4.3 L Albumin 2.1 L Globulin 2.2 Albumin/Globulin Ratio 1.0 Radiography Chest X-Ray - ED: 2 View and Read by ED Physician (Cardiac silhouette is normal. There is fusion noted at right and left. Right is greater than left. There is no cephalization or curly B-lines. Hilum is unremarkable. There is a mass or obstructive atelectasis right upper lobe. This appears unchanged from prior.) Diagnostic Testing: Clinical Impression(s) from Imaging Studies Chest X-Ray 06/05/25 11:20 IMPRESSION: The heart size is moderately enlarged. Central vascularity appears increased. There is masslike consolidation in the right upper lung, similar to the prior. T Here is a moderate right and left pleural effusion, increased. Reading Location: [facility] EK Initial EKG: Attestation: I personally reviewed and interpreted this EKG as follows: Interpretation: Sinus Rhythm (Rate is 69. CA most 134 ms. Cures duration 86 ms. QT duration 438 ms. Bruni is normal. Patient does have evidence of low voltage. There is artifact of the computer is reading as nonseptic ST-T wave changes.) Discharge Plan Triage Chief Complaint: Lower Extremity Injury ED Provider: Brent Sanchez Dx/Rx/DC Orders Clinical Impression: Anasarca, Hyperlipidemia, Essential hypertension, Pulmonary artery hypertension, MARKS (dyspnea on exertion), Squamous cell carcinoma of lung, stage IV, Bilateral pleural effusion, Venous stasis dermatitis of right lower extremity, Hypoalbuminemia Instructions: ED Lymphedema, ED Pleural Effusion Prescriptions: No Action escitalopram oxalate [Lexapro] 10 mg tablet 20 mg PO DAILY budesonide-formoterol [Symbicort] 160-4.5 mcg/actuation HFA aerosol inhaler 2 inh inhalation BID zinc 50 mg tablet 50 mg PO DAILY olanzapine [Zyprexa] 5 mg tablet 5 mg PO QHS folic acid 1 mg tablet 1 mg PO DAILY potassium chloride [Klor-Con M20] 20 mEq tablet,ER particles/crystals 20 meq PO BID ondansetron 8 mg tablet,disintegrating 8 mg PO Q8H PRN (Reason: nausea and vomiting) hydrochlorothiazide 12.5 mg tablet 12.5 mg PO DAILY Repatha SureClick 140 mg/mL pen injector 140 mg subcut .Q 2 WEEKS vitamin B complex Tablet 1 tab PO DAILY losartan 50 mg tablet 50 mg PO DAILY Qty: 90 3RF Primary Care Provider: Megan Harris Referrals: Leon Jung MD [Med Staff - Active Staff] - 1 Week Megan Harris DO [Primary Care Provider] - 5-7 Days Print Language: Lao Disposition Disposition: Home, Self Care
[2025-06-05 11:55] LABS: Pro- Brain NATRIURETIC PEPTIDE 149 pg/mL (<=1800)
[2025-06-05 11:56] LABS: AST(SGOT) 24 U/L (<=31); Alanine Aminotransfer ALT/SGPT 20 U/L (<=34); Albumin, Serum 2.1 g/dL (3.4-4.8); Alkaline Phosphatase 106 U/L (35-104); Anion Gap 9 (5-15); BUN 11 mg/dL (4-19); BUN/Creat Ratio 16.9 RATIO (10-20); Calcium,Total 7.5 mg/dL (7.6-11.0); Carbon Dioxide 24.9 mmol/L (21.0-32.0); Chloride 106 mmol/L (98-108); Estimated Creatinine Clearance 58.31 ml/min (50-250); Globulin 2.2 g/dL (2.2-4.2); Glucose 118 mg/dL (70-99); Potassium 3.2 mmol/L (3.3-5.1)
[2025-06-05 12:01] VITALS: BP 127/64; PULSE 66; O2SAT 94
[2025-06-05 12:03] LABS: Troponin T High Sensitivity 7 ng/L (<=14)
[2025-06-05 12:57] VITALS: BP 128/66; PULSE 64; RESP 16; TEMP 37.1; O2SAT 93
== END 2025-06-05 13:05 | disposition home or self-care (01) ==
PROVIDERS: Emergency Provider Emergency Medicine; PCP Internal Medicine; Visit Provider Emergency Medicine
DX: R60.1 Generalized edema (principal); C34.11 Malignant neoplasm of upper lobe, right bronchus or lung; R06.09 Other forms of dyspnea; S80.821A Blister (nonthermal), right lower leg, initial encounter; X58.XXXA Exposure to other specified factors, initial encounter; J90 Pleural effusion, not elsewhere classified; I10 Essential (primary) hypertension; I87.2 Venous insufficiency (chronic) (peripheral); E88.09 Other disorders of plasma-protein metabolism, not elsewhere classified; E78.5 Hyperlipidemia, unspecified; Z79.899 Other long term (current) drug therapy
CPT/HCPCS: 71046; 80053; 83605; 83880; 84484; 85025; 93005; 93971; 99283; A4216

== ENCOUNTER 2025-06-06 09:45 | Outpatient (CLI) | payer MEDICARE, OTHER, SELFPAY | END 2025-06-06 23:59 | disposition home or self-care (01) | LOC: MEDOUTP 09:46 | PROVIDERS: PCP Internal Medicine; Referring Provider Internal Medicine; Visit Provider Internal Medicine | DX: Z45.2 Encounter for adjustment and management of vascular access device (principal) | CPT/HCPCS: 96523; A4216 ==

== ENCOUNTER 2025-06-10 10:34 | Inpatient (IN) | payer MEDICARE, OTHER, SELFPAY ==
[2025-06-10] VITALS (18 sets, daily range): BP systolic 114–153; BP diastolic 54–75; PULSE 60–87; RESP 12–21; TEMP 36.4–37; O2SAT 92–100; BMI 33.8; BMI 33.2
--- NOTE | 2025-06-10 11:46 | EKG12_ITS ---
Test Reason : Blood Pressure : */* mmHG Vent. Rate : 66 BPM Atrial Rate : 66 BPM P-R Int : 154 ms QRS Dur : 82 ms QT Int : 460 ms P-R-T Axes : 54 -38 39 degrees QTcB Int : 482 ms Normal sinus rhythm Left axis deviation Low voltage QRS Nonspecific ST abnormality QTcB >= 480 msec Abnormal ECG Confirmed by Ramone Garvin ([id number]), supervising editor news reel BRANDON BROWER ([id number]) on 06/13/2025 10:30:26 AM Referred By: Confirmed By: Ramone Garvin
--- NOTE | 2025-06-10 11:47 | EX.ED.DYSGE1 ---
HPI History of Present Illness Chief Complaint: General Illness Informant: patient and family (2 daughters at bedside.) Onset/Context/Timing Onset: Today Current Severity: Gone Maximum Severity: Moderate Narrative Narrative: 71-year-old female history of lung cancer underwent a thoracentesis yesterday. Today she got up said she was not feeling great and her son room and had an episode where she could not find the words and talk. This lasted somewhere between 35 minutes and an hour. Last known well was around 7:30 am. This occurred just before 8:00. She is on no blood thinners. Said it has resolved and her speech is back to normal. She denies any significant headache. No recent head trauma. Prior similar symptoms: No Recent Illness/Hospitalization: No PFSH PFSH Medical History Adenocarcinoma, lung Lung cancer Wears hearing aid Wears glasses Post-menopausal Depression History of steroid therapy Arthritis Back pain Gastric reflux Non-smoker Shortness of breath on exertion History of echocardiogram History of stress test Cardiology follow-up encounter MARKS (dyspnea on exertion) Pulmonary artery hypertension Asthma Essential hypertension Class 1 obesity Dysthymic disorder Bradycardia Osteoporosis Hyperlipidemia NAFLD (nonalcoholic fatty liver disease) Vitamin D deficiency Allergic rhinitis Chronic sinusitis Psoriatic arthritis GERD (gastroesophageal reflux disease) DDD (degenerative disc disease) Home Medications ?Medication ?Instructions ?Recorded ?Last Taken ?Type escitalopram oxalate 10 mg tablet 20 mg PO DAILY 02/10/24 06/04/25 History (Lexapro) evolocumab 140 mg/mL subcutaneous 140 mg subcut .Q 2 WEEKS 03/15/24 05/22/25 History pen injector (Maxx Thrasher) losartan 50 mg tablet 50 mg PO DAILY #90 TABLETS 04/19/24 06/04/25 Rx budesonide-formoterol HFA 160 2 inh inhalation BID 06/02/25 06/05/25 History mcg-4.5 mcg/actuation aerosol inhaler (Symbicort) folic acid 1 mg tablet 1 mg PO DAILY 06/02/25 06/04/25 History olanzapine 5 mg tablet (Zyprexa) 5 mg PO QHS 06/02/25 06/04/25 History ondansetron 8 mg disintegrating 8 mg PO Q8H PRN nausea and vomiting 06/02/25 Unknown History tablet potassium chloride 20 mEq 20 meq PO BID 06/02/25 06/04/25 History tablet,extended release(part/cryst) (Klor-Con M) zinc 50 mg tablet 50 mg PO DAILY 06/02/25 06/04/25 History hydrochlorothiazide 12.5 mg tablet 12.5 mg PO DAILY 06/05/25 06/04/25 History Allergy/AdvReac Type Severity Reaction Status Date / Time ezetimibe (From Zetia) AdvReac myalgia Verified 06/02/25 11:29 [id number] Reductase AdvReac myalgia Verified 06/02/25 11:29 Inhibitor Family History Father Colon cancer Mother CAD (coronary artery disease) Brother Colon cancer Sister CAD (coronary artery disease) Sudden cardiac Myocardial infarction Surgical History History of cardiac catheterization History of carpal tunnel surgery of right wrist Hx of colonoscopy History of carpal tunnel release Social History Smoking Status: Never smoker alcohol intake: never substance use type: does not use caffeine: Yes Type: coffee Number of servings: 2 what type of physical activity do you participate in: none seatbelt use: always do you feel safe at home: Yes ROS ROS ED ROS Narrative Denies recent illness. Constitutional Constitutional ED: Denies chills or fever(s) Eyes Eyes: Denies blurry vision ENT ENT ED: Denies ear pain Cardiovascular Cardiovascular: Denies chest pain Respiratory/Chest Respiratory/Chest: Denies cough or dyspnea Gastrointestinal Gastrointestinal: Denies abdominal pain Genitourinary Genitourinary ED: Denies dysuria or hematuria Musculoskeletal Musculoskeletal: Denies arthralgias Integumentary Denies abscess Neurologic Neurologic: Denies headache(s) Psychiatric Psychiatric: Denies anxiety or depression Endocrine Endocrinology: Denies cold intolerance Hematologic/Lymphatic Hematologic/Lymphatic: Reports none Allergic/Immunologic Allergic/Immunologic ED: Denies mouth swelling, tongue swelling or urticaria EXAM Physical Exam Narrative Exam Narrative: 71-year-old female sitting upright in bed. No acute distress. Vital signs stable afebrile. Daughters at bedside. H EENT pupils round reactive light. Extra motions are intact. No facial droop. Normal speech. Neck nontender no JVD. Lungs clear to auscultation. Heart regular rhythm no murmur. Chest wall nontender. Abdomen soft nontender. Moving all 4 extremities. Chronic edema both lower extremities. 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 Normal dorsi plantarflexion. No drift. Neurologically she is awake alert. Answering questions following commands. Normal speech. Normal motor strength. NIH currently is 0. Const Vital Signs: 06/10/25 10:35 06/10/25 10:57 06/10/25 11:02 Temperature 98 F 97.6 F L Temperature Source Temporal Temporal Pulse Rate 74 72 Respiratory Rate 16 18 Respiratory Effort Non-Labored Short of Breath Respiratory Pattern Normal Blood Pressure 121/69 H 138/67 H Blood Pressure Mean 86 90 Pulse Ox 96 95 Oxygen Delivery Method Room Air Room Air 06/10/25 11:25 06/10/25 11:30 06/10/25 11:30 Temperature Temperature Source Pulse Rate 70 66 Respiratory Rate 17 17 Respiratory Effort Respiratory Pattern Blood Pressure 123/61 H 123/61 H Blood Pressure Mean 81 79 Pulse Ox 93 93 Oxygen Delivery Method Room Air 06/10/25 11:45 06/10/25 11:46 06/10/25 11:50 Temperature Temperature Source Pulse Rate 67 68 Respiratory Rate 12 14 Respiratory Effort Respiratory Pattern Blood Pressure 123/61 H Blood Pressure Mean 81 Pulse Ox 98 Oxygen Delivery Method Room Air Room Air 06/10/25 12:00 06/10/25 12:00 06/10/25 12:16 Temperature 98.5 F Temperature Source Oral Pulse Rate 71 61 79 Respiratory Rate 16 15 18 Respiratory Effort Respiratory Pattern Blood Pressure 115/75 115/75 115/75 Blood Pressure Mean 88 83 88 Pulse Ox 98 96 92 Oxygen Delivery Method Room Air Room Air Room Air 06/10/25 12:30 06/10/25 13:00 06/10/25 13:26 Temperature Temperature Source Pulse Rate 62 60 65 Respiratory Rate 12 21 H 18 Respiratory Effort Respiratory Pattern Blood Pressure 153/66 H 114/68 151/69 H Blood Pressure Mean 88 84 96 Pulse Ox 95 94 100 Oxygen Delivery Method Room Air Room Air Room Air 06/10/25 13:45 Temperature 97.9 F Temperature Source Pulse Rate 67 Respiratory Rate 18 Respiratory Effort Respiratory Pattern Blood Pressure 151/69 H Blood Pressure Mean 96 Pulse Ox 94 Oxygen Delivery Method Positive well nourished and well developed; Negative for cachectic, contractures or unkempt General Appearance ED: well developed and NAD; Negative for unkempt, cachectic, contractures, cyanotic, diaphoretic or pallor Nutritional Appearance: Negative for cachectic HEENT Reports moist mucous membranes Eyes PERRL and EOMs intact bilaterally Neck no lymphadenopathy, supple and no JVD Chest Wall inspection of chest normal and palpation of chest normal Resp normal respiratory effort and clear to auscultation bilaterally Cardio regular rate, regular rhythm, S1 normal heart sound, S2 normal heart sound and no murmurs GI normal to inspection, nondistended, normoactive bowel sounds, non-tender, non-distended and no masses Auscultation: normoactive bowel sounds Palpation: soft; Negative for tender, guarding or rebound tenderness present Back/Spine no CVA tenderness General Back: Negative for CVA tenderness Cervical Spine: Negative for cervical spine tenderness Thoracic Spine / Upper Back: Negative for thoracic spinal tenderness or paraspinal muscle tenderness Lumbar Spine / Lower Back: Negative for lumbar spinal tenderness Extremity Negative for normal to inspection Extremity Narrative: Bilateral lower extremity edema. General Extremety ED: Yes edema General Extremity: edema Neuro oriented x3, CN's II-XII intact bilaterally and no sensory deficits noted Sensorium / Orientation: alert Motor Exam: strength 5/5 throughout Psych mental status grossly normal Appearance: Negative for unkempt Skin no rashes or lesions noted, no wounds and skin turgor normal General Skin Exam: Negative for jaundice or pallor MDM MDM MDM Narrative Medical decision making narrative: 79-year-old female sounds like she may have had a TIA at home the day just before 8 AM. Currently her symptoms have resolved. Her NIH is 0. She has normal speech and strength. She will go through her stroke protocol workup. She is currently not a TNK candidate because her NIH is 0 and she has a normal neurologic exam. She also has a history of lung cancer. Repeat exam patient is doing well at 1:06 PM. NIH remains 0. Her workup is basically negative. Discussed with both her and her daughters. She will be admitted for a possible TIA. I spoken to the hospitalist and we are working on a bed at History & Record Review Discussion w/independent historian: Patient and Family Additional record(s) reviewed:: Prior inpatient record, Prior outpatient record, Prior ED visit and Prior labs Lab Data Attestation: I reviewed the patient's lab results. Lab results narrative: CBC shows a white count of 7. H&H 10.5 and 31.2. Platelets 250. PT/INR 16 and 1. PTT 26. Electrolytes show potassium 3.1. Gap 10. BUN and creatinine 13 and 0.6. Glucose 126. Troponin 8. CAT scan of brain and CTA head and neck shows no acute abnormality. No stroke. No bleed. No mass. Labs: Laboratory Results - last 24 hr 06/10/25 06/10/25 06/10/25 10:47 10:55 12:50 WBC 7.5 RBC 2.86 L Hgb 10.5 L Hct 31.2 L MCV 109.1 H MCH 36.7 H MCHC 33.7 RDW Std Deviation 62.1 H RDW Coeff of Eze 15.6 H Plt Count 250 MPV 9.7 Immature Gran % (Auto) 0.300 Neut % (Auto) 80.5 H Lymph % (Auto) 10.5 L [place] % (Auto) 7.8 Eos % (Auto) 0.5 Baso % (Auto) 0.4 Absolute Neuts (auto) 6.0 Absolute Lymphs (auto) 0.78 L Nucleated RBC % 0 PT 16.0 H INR 1.3 APTT 26.0 Sodium 139 Potassium 3.1 L Chloride 106 Carbon Dioxide 23.3 Anion Gap 10 BUN 13 Creatinine 0.69 L Estim Creat Clear Calc 58.24 Est GFR (MDRD) Non-Af 89 BUN/Creatinine Ratio 18.5 Glucose 126 H Calcium 7.6 Troponin T High Sens 8 D Troponin T Hi Sens 2 Hr 9 POC Glucose 130 H Radiography Diagnostic Testing: Clinical Impression(s) from Imaging Studies Brain CT 06/10/25 12:00 IMPRESSION: No acute intracranial abnormalities. Reading Location: [id number] Head/Neck CTA 06/10/25 12:00 IMPRESSION: No hemodynamically significant stenosis in the head and neck. Reading Location: [id number] Rhythm Strip Rhythm Strip: Sinus Rhythm Rate: 66 Ectopy: None EKG Initial EKG: Attestation: I personally reviewed and interpreted this EKG as follows: Interpretation: Sinus Rhythm and No Acute Injury Pattern Discharge Plan Triage Chief Complaint: General Illness ED Provider: Neri Davis Dx/Rx/DC Orders Clinical Impression: Dysarthria, Brain TIA, History of lung cancer Prescriptions: No Action escitalopram oxalate [Lexapro] 10 mg tablet 20 mg PO DAILY budesonide-formoterol [Symbicort] 160-4.5 mcg/actuation HFA aerosol inhaler 2 inh inhalation BID zinc 50 mg tablet 50 mg PO DAILY olanzapine [Zyprexa] 5 mg tablet 5 mg PO QHS folic acid 1 mg tablet 1 mg PO DAILY potassium chloride [Klor-Con M20] 20 mEq tablet,ER particles/crystals 20 meq PO BID ondansetron 8 mg tablet,disintegrating 8 mg PO Q8H PRN (Reason: nausea and vomiting) hydrochlorothiazide 12.5 mg tablet 12.5 mg PO DAILY Repatha SureClick 140 mg/mL pen injector 140 mg subcut .Q 2 WEEKS losartan 50 mg tablet 50 mg PO DAILY Qty: 90 3RF Primary Care Provider: Megan Harris Referrals: Megan Harris DO [Primary Care Provider] - Print Language: Nepali Disposition Disposition: Acute Care Hospital [facility]
[2025-06-10 11:56] LABS: Hematocrit 31.2 % (37-47); Hemoglobin 10.5 g/dL (12.0-15.0); Immature Granulocytes Count 0.020 X10^3/uL (0.0-0.0); Mean Corp Hgb Conc 33.7 g/dL (32-36); Mean Corpuscular Volume 109.1 fL (81-99); Mean Platelet Vol. 9.7 fl (6.2-12.0); NRBC Flagged by Analyzer 0 % (0-5); Platelet Count 250 K/mm3 (150-450); RBC Distribution Width CV 15.6 % (11.6-14.6); RBC Distribution Width SD 62.1 fl (35.1-43.9); Red Blood Count 2.86 M/mm3 (4.2-5.4); White Blood Count 7.5 K/mm3 (4.4-11.0)
--- NOTE | 2025-06-10 11:57 | CM.ED ---
Social Work Date of referral: 06/10/2025 Reason for referral: Advanced Care Directives (ACD's) not on file. Referred by: Social Work Identification Patient provided consent to Social Work visit. Marble Machine Tender requested patient to bring in copy of ACD's which patient was agreeable to. Inge Persaud, LACQUER MIXER, BESSEMER BOTTOM MAKER
--- NOTE | 2025-06-10 12:00 | CT_ITS ---
PROCEDURE: STROKE BRAIN/HEAD WITHOUT CONT 06/10/2025 REASON FOR EXAM: NEURO DEFICIT, ACUTE, STROKE SUSPECTED TECHNIQUE: Procedure Code: CTBR.ST Modality: CT Procedure: STROKE BRAIN/HEAD WITHOUT CONT Coronal and Sagittal reconstruction series were provided. One or more dose reduction techniques were used (e.g., Automated exposure control, adjustment of the mA and/or kV according to patient size, use of iterative reconstruction technique. RADIATION DOSE SUMMARY: CTDlvol: 19.77 mGy DLP: 1671.69 mGycm COMPARISON: None. FINDINGS: Brain: Normal. No acute territorial infarction. No acute intracranial hemorrhage. CSF Spaces: Normal Sinuses/Mastoids: Clear at visualized levels Bones: No acute bony abnormalities. CT/STROKE Brain/Head without Cont IMPRESSION: No acute intracranial abnormalities. Reading Location: [facility]
--- NOTE | 2025-06-10 12:00 | CT_ITS ---
PROCEDURE: STROKE CTA HEAD AND NECK W/CON 06/10/2025 REASON FOR EXAM: NEURO DEFICIT, ACUTE, STROKE SUSPECTED TECHNIQUE: Procedure Code: CTCTA.ST.HN Modality: CT Procedure: STROKE CTA HEAD AND NECK W/CON Multiplanar Sagittal and Coronal images were obtained. CONTRAST: Isovue 370 VOLUME: 100 mL One or more dose reduction techniques were used (e.g., Automated exposure control, adjustment of the mA and/or kV according to patient size, use of iterative reconstruction technique). RADIATION DOSE SUMMARY: CTDlvol: 90.77 mGy DLP: 835.61 mGycm COMPARISON: None. FINDINGS: Aortic Arch: Normal size and branching pattern. No significant atherosclerotic plaque. Brachiocephalic and Subclavians: Unremarkable RIGHT Carotid: Right CCA: Unremarkable. Right ICA: Unremarkable. Right ECA: Unremarkable. LEFT Carotid: Left CCA: Unremarkable. Left ICA: Unremarkable. Left ECA: Unremarkable. Vertebrals: Codominant. Arise from the subclavians. Both vertebrals form the basilar. RIGHT Vertebral: Unremarkable. LEFT Vertebral: Unremarkable. Anatomy: [place] anatomy is normal. Aneurysm or avm: No intracranial aneurysms or large vascular malformations are identified. Anterior cerebral arteries: Unremarkable: Middle cerebral arteries: Unremarkable. Basilar artery: Unremarkable. Posterior cerebral arteries: Unremarkable. Other major branches of the posterior circulation: Unremarkable. Major venous structures: Unremarkable. Other findings: Neck: No lymphadenopathy. Lungs: Lung apices are clear. Bones: Bones are unremarkable. CT/STROKE CTA Head AND Neck W/Con IMPRESSION: No hemodynamically significant stenosis in the head and neck. Reading Location: [facility]
[2025-06-10 12:05] LABS: Prothrombin Time (Protime)PT. 16.0 SECONDS (11.7-14.9)
[2025-06-10 12:06] LABS: Partial Thromboplast Time 26.0 Seconds (24.1-36.2)
[2025-06-10 12:33] LABS: Anion Gap 10 (5-15); BUN 13 mg/dL (4-19); BUN/Creat Ratio 18.5 RATIO (10-20); Calcium,Total 7.6 mg/dL (7.6-11.0); Carbon Dioxide 23.3 mmol/L (21.0-32.0); Chloride 106 mmol/L (98-108); Estimated Creatinine Clearance 58.24 ml/min (50-250); Glucose 126 mg/dL (70-99); Potassium 3.1 mmol/L (3.3-5.1); Troponin T High Sensitivity 8 ng/L (<=14)
[2025-06-10 13:50] LABS: Troponin T High Sens 2 HR 9 ng/L (<=14)
--- NOTE | 2025-06-10 14:47 | PCM.HP.STD ---
[facility] - General General Date of Admission: 06/10/25 Date of Service: 06/10/25 Chief Complaint: Word finding difficulty HPI Narrative NASIM GARZA, is a 79 F with a history of lung cancer who presents with expressive aphasia. Approximately 8 AM, patient was at home and had difficulty finding her words. Symptoms lasted until about 10. And resolved. Patient never had any issues like this before. Patient underwent a workup including CTA of the head and neck and head CT that was negative. Patient did have also has some hallucinations seeing some animal with wings but all this is resolved. [facility] Medical History Adenocarcinoma, lung Lung cancer Wears hearing aid Wears glasses Post-menopausal Depression History of steroid therapy Arthritis Back pain Gastric reflux Non-smoker Shortness of breath on exertion History of echocardiogram History of stress test Cardiology follow-up encounter MARKS (dyspnea on exertion) Pulmonary artery hypertension Asthma Essential hypertension Class 1 obesity Dysthymic disorder Bradycardia Osteoporosis Hyperlipidemia NAFLD (nonalcoholic fatty liver disease) Vitamin D deficiency Allergic rhinitis Chronic sinusitis Psoriatic arthritis GERD (gastroesophageal reflux disease) DDD (degenerative disc disease) Home Medications ?Medication ?Instructions ?Recorded ?Last Taken ?Type escitalopram oxalate 10 mg tablet 20 mg PO DAILY 02/10/24 06/04/25 History (Lexapro) evolocumab 140 mg/mL subcutaneous 140 mg subcut .Q 2 WEEKS 03/15/24 05/22/25 History pen injector (Repewelina Galvinick) losartan 50 mg tablet 50 mg PO DAILY #90 TABLETS 04/19/24 06/04/25 Rx budesonide-formoterol HFA 160 2 inh inhalation BID 06/02/25 06/05/25 History mcg-4.5 mcg/actuation aerosol inhaler (Symbicort) folic acid 1 mg tablet 1 mg PO DAILY 06/02/25 06/04/25 History olanzapine 5 mg tablet (Zyprexa) 5 mg PO QHS 06/02/25 06/04/25 History ondansetron 8 mg disintegrating 8 mg PO Q8H PRN nausea and vomiting 06/02/25 Unknown History tablet potassium chloride 20 mEq 20 meq PO BID 06/02/25 06/04/25 History tablet,extended release(part/cryst) (Klor-Con M) zinc 50 mg tablet 50 mg PO DAILY 06/02/25 06/04/25 History hydrochlorothiazide 12.5 mg tablet 12.5 mg PO DAILY 06/05/25 06/04/25 History Allergy/AdvReac Type Severity Reaction Status Date / Time ezetimibe (From Zetia) AdvReac myalgia Verified 06/02/25 11:29 [id number] Reductase AdvReac myalgia Verified 06/02/25 11:29 Inhibitor Family History Father Colon cancer Mother CAD (coronary artery disease) Brother Colon cancer Sister CAD (coronary artery disease) Sudden cardiac Myocardial infarction Surgical History History of cardiac catheterization History of carpal tunnel surgery of right wrist Hx of colonoscopy History of carpal tunnel release Social History Smoking Status: Never smoker alcohol intake: never substance use type: does not use caffeine: Yes Type: coffee Number of servings: 2 what type of physical activity do you participate in: none seatbelt use: always do you feel safe at home: Yes ROS ROS Narrative Patient had a thoracentesis performed earlier this week that. Also had a duplex of her legs that she had does have lower extremity edema that was performed on Thursday was negative for DVTs. All review of systems were negative except as mentioned above in the history of present illness and the other review of systems. Vital Signs Vital Signs Vital Signs: 06/10/25 10:35 06/10/25 10:57 06/10/25 11:02 Temperature 36.6 C 36.4 C L Temperature Source Temporal Temporal Pulse Rate 74 72 Respiratory Rate 16 18 Respiratory Effort Non-Labored Short of Breath Respiratory Pattern Normal Blood Pressure 121/69 H 138/67 H Blood Pressure Mean 86 90 Pulse Ox 96 95 Oxygen Delivery Method Room Air Room Air 06/10/25 11:25 06/10/25 11:30 06/10/25 11:30 Temperature Temperature Source Pulse Rate 70 66 Respiratory Rate 17 17 Respiratory Effort Respiratory Pattern Blood Pressure 123/61 H 123/61 H Blood Pressure Mean 81 79 Pulse Ox 93 93 Oxygen Delivery Method Room Air 06/10/25 11:45 06/10/25 11:46 06/10/25 11:50 Temperature Temperature Source Pulse Rate 67 68 Respiratory Rate 12 14 Respiratory Effort Respiratory Pattern Blood Pressure 123/61 H Blood Pressure Mean 81 Pulse Ox 98 Oxygen Delivery Method Room Air Room Air 06/10/25 12:00 06/10/25 12:00 06/10/25 12:16 Temperature 36.9 C Temperature Source Oral Pulse Rate 71 61 79 Respiratory Rate 16 15 18 Respiratory Effort Respiratory Pattern Blood Pressure 115/75 115/75 115/75 Blood Pressure Mean 88 83 88 Pulse Ox 98 96 92 Oxygen Delivery Method Room Air Room Air Room Air 06/10/25 12:30 06/10/25 13:00 06/10/25 13:26 Temperature Temperature Source Pulse Rate 62 60 65 Respiratory Rate 12 21 H 18 Respiratory Effort Respiratory Pattern Blood Pressure 153/66 H 114/68 151/69 H Blood Pressure Mean 88 84 96 Pulse Ox 95 94 100 Oxygen Delivery Method Room Air Room Air Room Air 06/10/25 13:45 Temperature 36.6 C Temperature Source Pulse Rate 67 Respiratory Rate 18 Respiratory Effort Respiratory Pattern Blood Pressure 151/69 H Blood Pressure Mean 96 Pulse Ox 94 Oxygen Delivery Method Weight Weight: 84 kg Body Mass Index (BMI) 33.8 Physical Exam Narrative POCUS: Indication is for lower extremity edema. Limited as the ultrasound in the emergency room does not have a phased-array probe. But using the curvilinear, the heart appeared grossly normal but once again there was a curvilinear probe in phased-array probe. IVC was not dilated and was collapsible with respirations. Duplex with the linear probe no DVTs in the thighs bilaterally. Results Lab / Micro Data Attestation: I reviewed the patient's lab results. 06/10/25 10:55 06/10/25 10:55 Labs: Laboratory Results - last 24 hr 06/10/25 10:47: POC Glucose 130 H 06/10/25 10:55: WBC 7.5, RBC 2.86 L, Hgb 10.5 L, Hct 31.2 L, MCV 109.1 H, MCH 36.7 H, MCHC 33.7, RDW Std Deviation 62.1 H, RDW Coeff of Eze 15.6 H, Plt Count 250, MPV 9.7, Immature Gran % (Auto) 0.300, Neut % (Auto) 80.5 H, Lymph % (Auto) 10.5 L, [place] % (Auto) 7.8, Eos % (Auto) 0.5, Baso % (Auto) 0.4, Absolute Neuts (auto) 6.0, Absolute Lymphs (auto) 0.78 L, Nucleated RBC % 0, PT 16.0 H, INR 1.3, APTT 26.0, Sodium 139, Potassium 3.1 L, Chloride 106, Carbon Dioxide 23.3, Anion Gap 10, BUN 13, Creatinine 0.69 L, Estim Creat Clear Calc 58.24, Est GFR (MDRD) Non-Af 89, BUN/Creatinine Ratio 18.5, Glucose 126 H, Calcium 7.6, Troponin T High Sens 8 D 06/10/25 12:50: Troponin T Hi Sens 2 Hr 9 Rhythm Strip Rhythm Strip: Sinus Rhythm Rate: 66 Ectopy: None EKG Initial EKG: Attestation: I personally reviewed and interpreted this EKG as follows: Prior EKG tracings: available for review EKG Rhythm Intrepretation: Sinus Rhythm Imaging Radiology Impression Brain CT 06/10/25 12:00 IMPRESSION: No acute intracranial abnormalities. Reading Location: [id number] Head/Neck CTA 06/10/25 12:00 IMPRESSION: No hemodynamically significant stenosis in the head and neck. Reading Location: [id number] Assessment & Plan Assessment/Plan (1) Brain TIA: PLAN: Patient undergo workup with a MRI of the brain as well as 2D echocardiogram. Start aspirin. Check lipid panel. PT OT evaluate and treat. Bedside swallow evaluation (2) CHF exacerbation: PLAN: Patient has marked lower extremity edema with erythema particular on her right lower extremity. This does not appear to be cellulitic that the patient had been on antibiotics recently for that. Check echocardiogram as above Start IV furosemide. Hold HCTZ while on IV furosemide. I performed a ultrasound on her lower extremities evaluate for DVTs and did not see any proximally. Additionally, patient did have ultrasound of her legs performed on May 23 that was negative. I saw this through Dr. Hanson. PLAN: Plan Chronic medical conditions Lung adenocarcinoma: Patient undergoing immunotherapy Recent pleural effusion. Patient had a thoracentesis (reviewed through Dr. Hanson) patient had 950 cc of cloudy yellow fluid drained on June 09. Through the labs there was not any studies performed so I cannot determine if this is transudative versus exudative. No need for repeat thoracentesis at this time. VTE prophylaxis with enoxaparin CODE STATUS: Addressed with the patient. Patient wishes to be full code. Charges/Coding Visit Charges Inpatient E&M: 31966 Init Hosp L3
--- NOTE | 2025-06-10 15:02 | ECHOD_ITS ---
Reason For Study Reason For Study: TIA/CVA Procedure This was a 2D Doppler, Color Flow transthoracic echocardiogram. Exam performed portable in patient room. Left Ventricle Normal left ventricle. The estimated ejection fraction is 55???60 %. Right Ventricle Normal right ventricle. Normal systolic function. Atria Normal left atrium. Normal right atrium. Bubble contrast study is negative for PFO/ASD. Mitral Valve There is mild to moderate mitral annular calcification. Tricuspid Valve The tricuspid valve is not well visualized. Aortic Valve Trisinus/trileaflet aortic valve. Pulmonic Valve The pulmonic valve is not well visualized. Great Vessels The aortic root is not well visualized. Pericardium/Pleural No pericardial effusion. Medication Performed a rapid injection of agitated mix of 9 cc saline and 1cc air to assess for atrial septal defect. MMode/2D Measurements & Calculations LVIDd: 4.7 cm IVSd: 2.4 cm Ao root diam: 3.5 cm LVIDs: 2.9 cm LVPWd: 0.76 cm RVDd: 3.3 cm FS: 38.7 % LAV(MOD-bp): 37.9 ml LVAd ap4: 21.7 cm2 SV(MOD-sp4): 39.7 ml LAV(MOD-bp) Indexed: 20.7 ml/m2 LVLd ap4: 6.4 cm SI(MOD-sp4): 21.7 ml/m2 LAV(MOD-sp2): 35.4 ml EDV(MOD-sp4): 62.1 ml LAV(MOD-sp4): 32.8 ml EDV(sp4-el): 62.0 ml LVAs ap4: 11.0 cm2 LVLs ap4: 4.7 cm ESV(MOD-sp4): 22.4 ml ESV(sp4-el): 21.7 ml EF(MOD-sp4): 64.0 % EF(sp4-el): 64.9 % SV(sp4-el): 40.2 ml LA A4 area: 14.7 cm2 LA dimension(2D): 3.4 cm RA A4 area: 13.9 cm2 Time Measurements MV dec time: 0.31 sec Doppler Measurements & Calculations MV E max kristopher: 78.8 cm/sec Lat Peak E' Kristopher: 10.3 cm/sec Med Peak E' Kristopher: 7.2 cm/sec MV A max kristopher: 120.5 cm/sec E/E' lat: 7.7 E/E' med: 10.9 MV E/A: 0.65 MV V2 max: 158.2 cm/sec MV P1/2t max kristopher: 94.1 cm/sec Ao V2 max: 157.0 cm/sec MV max P.0 mmHg MV P1/2t: 104.2 msec Ao max P.9 mmHg MV V2 mean: 72.6 cm/sec MV dec slope: 264.6 cm/sec2 Ao V2 mean: 111.5 cm/sec MV mean P.6 mmHg MVA(P1/2t): 2.1 cm2 Ao mean P.6 mmHg MV V2 VTI: 40.7 cm Ao V2 VTI: 35.9 cm AV (velocity ratio): 0.84 LV V1 max: 135.9 cm/sec PA V2 max: 101.9 cm/sec TR max kristopher: 240.2 cm/sec LV V1 max P.4 mmHg TR max P.1 mmHg LV V1 mean P.0 mmHg LV V1 mean: 94.5 cm/sec LV V1 VTI: 30.2 cm ECHO/Echo Complete Interpretation Summary The estimated ejection fraction is 55???60 %. Normal diastolic function Bubble study is negative for intracardiac shunt. No significant change from previous echocardiogram. Ordering Physician: Kameron Harris Performed By: John Cardenas RCS
[2025-06-10 15:19] LABS: Troponin T High Sens 4 HR 15 ng/L (<=14)
[2025-06-10] MEDS: Potassium Chloride Oral Tablet 20 MEQ 40 MEQ PO (18:41)
[2025-06-10] MEDS: Budesonide Respules 0.5 MG/2 ML AMPUL.NEB. INHALATION (20:03)
[2025-06-10] MEDS: Albuterol 2.5 MG/3 ML VIAL.NEB. INHALATION (20:03)
[2025-06-10] MEDS: Potassium Chloride Oral Tablet 20 MEQ PO (22:36)
[2025-06-11] VITALS (9 sets, daily range): BP systolic 101–125; BP diastolic 46–57; PULSE 67–84; RESP 16–18; TEMP 36.1–36.8; O2SAT 93–97; BMI 33.0
[2025-06-11 06:49] LABS: Anion Gap 8 (5-15); BUN 12 mg/dL (4-19); BUN/Creat Ratio 17.2 RATIO (10-20); Calcium,Total 7.3 mg/dL (7.6-11.0); Carbon Dioxide 24.7 mmol/L (21.0-32.0); Chloride 107 mmol/L (98-108); Cholesterol 90 mg/dL (<=200); Estimated Creatinine Clearance 57.51 ml/min (50-250); Glucose 111 mg/dL (70-99); Low Density Lipoprotein Calc. 47 mg/dL; Potassium 3.3 mmol/L (3.3-5.1); Triglycerides 42 mg/dL; Very Low Density Lipoprotein 8 mg/dL (5-40); cholesterol:hdl ratio screen 2.64
[2025-06-11] MEDS: Albuterol 2.5 MG/3 ML VIAL.NEB. INHALATION ×3 (07:42→19:44)
[2025-06-11] MEDS: Budesonide Respules 0.5 MG/2 ML AMPUL.NEB. INHALATION ×2 (07:42→19:44)
--- NOTE | 2025-06-11 09:01 | PN.HOSP_ITS ---
Reason for Visit Chief Complaint: Word finding difficulty Subjective Subjective No further expressive aphasia. Decreased lower extremity edema. Objective Data Objective Data Vital Signs: Vital Signs Temp Pulse Resp BP Pulse Ox O2 Del Method O2 Flow Rate 36.6 C 72 16 125/54 H 94 Room Air 2 06/11/25 06:30 06/11/25 07:44 06/11/25 07:44 06/11/25 06:30 06/11/25 07:44 06/11/25 07:44 06/11/25 02:30 Oxygen Flow Rate (L/min) 2 Oxygen Delivery Method Room Air Weight: 82 kg Body Mass Index (BMI) 33.0 Intake & Output: Intake and Output for Last 24 Hours 06/09/25 06/10/25 06/11/25 23:59 23:59 23:59 Intake Total 400 / 400 Balance 400 / 400 Lab / Micro Data 06/10/25 10:55 06/11/25 06:00 Labs: Laboratory Results - last 24 hr 06/10/25 10:47: POC Glucose 130 H 06/10/25 10:55: WBC 7.5, RBC 2.86 L, Hgb 10.5 L, Hct 31.2 L, MCV 109.1 H, MCH 36.7 H, MCHC 33.7, RDW Std Deviation 62.1 H, RDW Coeff of Eze 15.6 H, Plt Count 250, MPV 9.7, Immature Gran % (Auto) 0.300, Neut % (Auto) 80.5 H, Lymph % (Auto) 10.5 L, [place] % (Auto) 7.8, Eos % (Auto) 0.5, Baso % (Auto) 0.4, Absolute Neuts (auto) 6.0, Absolute Lymphs (auto) 0.78 L, Nucleated RBC % 0, PT 16.0 H, INR 1.3, APTT 26.0, Sodium 139, Potassium 3.1 L, Chloride 106, Carbon Dioxide 23.3, Anion Gap 10, BUN 13, Creatinine 0.69 L, Estim Creat Clear Calc 58.24, Est GFR (MDRD) Non-Af 89, BUN/Creatinine Ratio 18.5, Glucose 126 H, Calcium 7.6, T roponin T High Sens 8 D 06/10/25 12:50: Troponin T Hi Sens 2 Hr 9 06/10/25 14:47: Troponin T Hi Sens 4Hr 15 H 06/11/25 06:00: Sodium 139, Potassium 3.3, Chloride 107, Carbon Dioxide 24.7, Anion Gap 8, BUN 12, Creatinine 0.69 L, Estim Creat Clear Calc 57.51, Est GFR (MDRD) Non-Af 89, BUN/Creatinine Ratio 17.2, Glucose 111 H, Calcium 7.3 L, Triglycerides 42, Cholesterol 90, LDL Cholesterol, Calc 47, VLDL Cholesterol 8, HDL Cholesterol 34 L, Cholesterol/HDL Ratio 2.64 Radiography Diagnostic Testing: Radiology Impression Brain CT 06/10/25 12:00 IMPRESSION: No acute intracranial abnormalities. Reading Location: [id number] Head/Neck CTA 06/10/25 12:00 IMPRESSION: No hemodynamically significant stenosis in the head and neck. Reading Location: [id number] Rhythm Strip Rhythm Strip: Sinus Rhythm Rate: 66 Ectopy: None Physical Exam Const no apparent distress Resp normal respiratory effort, no retractions, no use of accessory muscles and clear to auscultation bilaterally Cardio regular rate, S1 normal heart sound and S2 normal heart sound GI normal to inspection, nondistended, normoactive bowel sounds, soft to palpation, non-tender and non-distended Extremity Extremity Narrative: Bilateral lower extremity edema. Lymphedema wraps improved. Improved erythema of the right lower extremity. Assessment & Plan Assessment/Plan (1) Brain TIA: PLAN: Patient undergo workup with a MRI of the brain as well as 2D echocardiogram. Start aspirin. Check lipid panel. PT OT evaluate and treat. Bedside swallow evaluation (2) CHF exacerbation: PLAN: Improving patient has marked lower extremity edema with erythema particular on her right lower extremity. This does not appear to be cellulitic that the patient had been on antibiotics recently for that. Check echocardiogram as above Start IV furosemide. Hold HCTZ while on IV furosemide. I performed a ultrasound on her lower extremities evaluate for DVTs and did not see any proximally. Additionally, patient did have ultrasound of her legs performed on May 23 that was negative. I saw this through Dr. Hanson. PLAN: Plan Chronic medical conditions * Lung adenocarcinoma: Patient undergoing immunotherapy * Recent pleural effusion. Patient had a thoracentesis (reviewed through Dr. Hanson) patient had 950 cc of cloudy yellow fluid drained on June 09. Through the labs there was not any studies performed so I cannot determine if this is transudative versus exudative. No need for repeat thoracentesis at this time. VTE prophylaxis with enoxaparin CODE STATUS: Addressed with the patient. Patient wishes to be full code. Charges/Coding Visit Charges Inpatient E&M: 69720 Subs Hosp L2 NIHSS NIHSS Nursing Documentation NIHSS Nursing Documentation: NIH Stroke Scale Start: 06/10/25 11:51 Freq: Status: Discharge Protocol: Activity Type Activity Date Activity User E-sign Co-sign Detail Recorded Client Recorded Date Recorded By Document 06/10/25 10:45 JS desktop 06/10/25 11:51 JS 06/10/25 10:45 NIH Stroke Scale [NIHSS] A score of 0 is normal or asymptomatic . Total possible score is 42. Inpatient: RN or Physician to activate a stroke alert for onset of new stroke symptoms or with NIHSS increase >/= 3 points. Following change in neurological status, NIHSS will be performed per physician order or more frequently PRN. -1a. Level of Consciousness 0 - Alert; keenly responsive -1b. LOC Questions 0 - Answers BOTH questions correctly -1c. LOC Commands 0 - Performs BOTH tasks correctly -2. Best Gaze 0 - Normal -3. Visual 0 - No visual loss -4. Facial Palsy 0 - Normal symmetrical movements -5a. Left Arm 0 - No drift; arm holds 90 ( or 45) degrees for full 10 seconds -5b. Right Arm 0 - No drift; arm holds 90 ( or 45) degrees for full 10 seconds -6a. Left Leg 0 - No drift; leg holds 30- degree position for full 5 seconds -6b. Right Leg 0 - No drift; leg holds 30- degree position for full 5 seconds -7. Limb Ataxia 0 - Absent -8. Sensory 0 - Normal; no sensory loss -9. Best Language 0 - No aphasia; normal -10. Dysarthria 0 - Normal -11. Extinction and Inattention 0 - No abnormality -Total 0 Query Text:A score of 0 is normal or asymptomatic. Total possible score is 42 . ED: Notify Physician for NIHSS increase by > / = 3 points. Inpatient: RN or Physician to activate a stroke alert for NIHSS increase of > / = 3 points. NIHSS: Ischemic Stroke/TIA Start: 06/10/25 15:02 Text: For PCU Patients: NIH and Neuro Check every 4 Status: Active hours, PRN and with change in RN caregiver. Freq: [id number] Protocol: Activity Type Activity Date Activity User E-sign Co-sign Detail Recorded Client Recorded Date Recorded By Document 06/11/25 07:00 MEL [id number] 06/11/25 08:17 MEL 06/11/25 07:00 -1a. Level of Consciousness 0 - Alert; keenly responsive -1b. LOC Questions 0 - Answers BOTH questions correctly -1c. LOC Commands 0 - Performs BOTH tasks correctly -2. Best Gaze 0 - Normal -3. Visual 0 - No visual loss -4. Facial Palsy 0 - Normal symmetrical movements -5a. Left Arm 0 - No drift; arm holds 90 ( or 45) degrees for full 10 seconds -5b. Right Arm 0 - No drift; arm holds 90 ( or 45) degrees for full 10 seconds -6a. Left Leg 0 - No drift; leg holds 30- degree position for full 5 seconds -6b. Right Leg 0 - No drift; leg holds 30- degree position for full 5 seconds -7. Limb Ataxia 0 - Absent -8. Sensory 0 - Normal; no sensory loss -9. Best Language 0 - No aphasia; normal -10. Dysarthria 0 - Normal -11. Extinction and Inattention 0 - No abnormality -Total 0 Query Text:A score of 0 is normal or asymptomatic. Total possible score is 42 . ED: Notify Physician for NIHSS increase by > / = 3 points. Inpatient: RN or Physician to activate a stroke alert for NIHSS increase of > / = 3 points. Coma Scale [Assess] -Eye Opening Spontaneous -Motor Obeys Commands -Verbal Oriented [Total] -Coma Scale Total 15
--- NOTE | 2025-06-11 09:06 | NEURO.CONS ---
Assessment and Plan: Neuro Assessment/Plan NASIM GARZA is a 79 F with a past medical history of hld and Lung Ca on immunotherapy, being evaluated by Teleneurology for TIA. she presetned with transietn Aphasia, CT head and CTA showed no acute findings Diagnosis: TIA Plan: MRI brain w.o cont TTE start ASA 81 mg daily LDL goal<70 she is allergic to statin vascular risks modifications HPI Consult Data Date of Consult: 06/11/25 HPI Narrative HPI Narrative: NASIM GARZA, is a 79 F who presents with aphasia. she had a 10 minutes episode of inability to talk, she denies facial droop, vertigo, sensory lost or chest pain. [facility] Medical History Adenocarcinoma, lung Lung cancer Wears hearing aid Wears glasses Post-menopausal Depression History of steroid therapy Arthritis Back pain Gastric reflux Non-smoker Shortness of breath on exertion History of echocardiogram History of stress test Cardiology follow-up encounter MARKS (dyspnea on exertion) Pulmonary artery hypertension Asthma Essential hypertension Class 1 obesity Dysthymic disorder Bradycardia Osteoporosis Hyperlipidemia NAFLD (nonalcoholic fatty liver disease) Vitamin D deficiency Allergic rhinitis Chronic sinusitis Psoriatic arthritis GERD (gastroesophageal reflux disease) DDD (degenerative disc disease) Home Medications ?Medication ?Instructions ?Recorded ?Last Taken ?Type escitalopram oxalate 10 mg tablet 20 mg PO DAILY 02/10/24 06/04/25 History (Lexapro) evolocumab 140 mg/mL subcutaneous 140 mg subcut .Q 2 WEEKS 03/15/24 05/22/25 History pen injector (Maxx Thrasher) losartan 50 mg tablet 50 mg PO DAILY #90 TABLETS 04/19/24 06/04/25 Rx budesonide-formoterol HFA 160 2 inh inhalation BID 06/02/25 06/05/25 History mcg-4.5 mcg/actuation aerosol inhaler (Symbicort) folic acid 1 mg tablet 1 mg PO DAILY 06/02/25 06/04/25 History ondansetron 8 mg disintegrating 8 mg PO Q8H PRN nausea and vomiting 06/02/25 Unknown History tablet potassium chloride 20 mEq 20 meq PO BID 06/02/25 06/04/25 History tablet,extended release(part/cryst) (Klor-Con M) zinc 50 mg tablet 50 mg PO DAILY 06/02/25 06/04/25 History hydrochlorothiazide 12.5 mg tablet 12.5 mg PO DAILY 06/05/25 06/04/25 History Allergy/AdvReac Type Severity Reaction Status Date / Time ezetimibe (From Zetia) AdvReac myalgia Verified 06/02/25 11:29 [id number] Reductase AdvReac myalgia Verified 06/02/25 11:29 Inhibitor Family History Father Colon cancer Mother CAD (coronary artery disease) Brother Colon cancer Sister CAD (coronary artery disease) Sudden cardiac Myocardial infarction Surgical History History of cardiac catheterization History of carpal tunnel surgery of right wrist Hx of colonoscopy History of carpal tunnel release Social History Smoking Status: Unknown if ever smoked alcohol intake: never substance use type: does not use caffeine: Yes Type: coffee Number of servings: 2 what type of physical activity do you participate in: none seatbelt use: always do you feel safe at home: Yes Vital Signs Vital Signs Vital Signs: 06/10/25 10:35 06/10/25 10:57 06/10/25 11:02 Temperature 98 F 97.6 F L Temperature Source Temporal Temporal Pulse Rate 74 72 Pulse Strength Respiratory Rate 16 18 Respiratory Effort Non-Labored Short of Breath Respiratory Depth Respiratory Pattern Normal Blood Pressure 121/69 H 138/67 H Blood Pressure Mean 86 90 Pulse Ox 96 95 Oxygen Delivery Method Room Air Room Air Oxygen Flow Rate (L/min) 06/10/25 11:25 06/10/25 11:30 06/10/25 11:30 Temperature Temperature Source Pulse Rate 70 66 Pulse Strength Respiratory Rate 17 17 Respiratory Effort Respiratory Depth Respiratory Pattern Blood Pressure 123/61 H 123/61 H Blood Pressure Mean 81 79 Pulse Ox 93 93 Oxygen Delivery Method Room Air Oxygen Flow Rate (L/min) 06/10/25 11:45 06/10/25 11:46 06/10/25 11:50 Temperature Temperature Source Pulse Rate 67 68 Pulse Strength Respiratory Rate 12 14 Respiratory Effort Respiratory Depth Respiratory Pattern Blood Pressure 123/61 H Blood Pressure Mean 81 Pulse Ox 98 Oxygen Delivery Method Room Air Room Air Oxygen Flow Rate (L/min) 06/10/25 12:00 06/10/25 12:00 06/10/25 12:16 Temperature 98.5 F Temperature Source Oral Pulse Rate 71 61 79 Pulse Strength Respiratory Rate 16 15 18 Respiratory Effort Respiratory Depth Respiratory Pattern Blood Pressure 115/75 115/75 115/75 Blood Pressure Mean 88 83 88 Pulse Ox 98 96 92 Oxygen Delivery Method Room Air Room Air Room Air Oxygen Flow Rate (L/min) 06/10/25 12:30 06/10/25 13:00 06/10/25 13:26 Temperature Temperature Source Pulse Rate 62 60 65 Pulse Strength Respiratory Rate 12 21 H 18 Respiratory Effort Respiratory Depth Respiratory Pattern Blood Pressure 153/66 H 114/68 151/69 H Blood Pressure Mean 88 84 96 Pulse Ox 95 94 100 Oxygen Delivery Method Room Air Room Air Room Air Oxygen Flow Rate (L/min) 06/10/25 13:45 06/10/25 15:00 06/10/25 16:00 Temperature 97.9 F 98.6 F Temperature Source Oral Pulse Rate 67 70 Pulse Strength Respiratory Rate 18 18 Respiratory Effort Normal Non-Labored Respiratory Depth Normal Respiratory Pattern Normal Blood Pressure 151/69 H 138/69 H Blood Pressure Mean 96 92 Pulse Ox 94 93 Oxygen Delivery Method Room Air Room Air Oxygen Flow Rate (L/min) 06/10/25 18:03 06/10/25 18:30 06/10/25 20:08 Temperature 98.6 F Temperature Source Oral Pulse Rate 76 Pulse Strength Respiratory Rate 18 Respiratory Effort Respiratory Depth Respiratory Pattern Blood Pressure 127/61 H Blood Pressure Mean 83 Pulse Ox 94 96 96 Oxygen Delivery Method Room Air Room Air Room Air Oxygen Flow Rate (L/min) 06/10/25 20:09 06/10/25 21:34 06/10/25 21:34 Temperature Temperature Source Pulse Rate 87 Pulse Strength Weak (1+) Respiratory Rate 18 Respiratory Effort Normal Non-Labored Respiratory Depth Normal Respiratory Pattern Normal Normal Blood Pressure Blood Pressure Mean Pulse Ox Oxygen Delivery Method Nasal Cannula Oxygen Flow Rate (L/min) 2 06/10/25 22:30 06/11/25 02:30 06/11/25 06:30 Temperature 98.4 F 97.8 F 97.8 F Temperature Source Temporal Temporal Temporal Pulse Rate 82 73 67 Pulse Strength Respiratory Rate 18 18 18 Respiratory Effort Respiratory Depth Respiratory Pattern Blood Pressure 120/54 L 120/46 L 125/54 H Blood Pressure Mean 76 70 77 Pulse Ox 95 97 97 Oxygen Delivery Method Nasal Cannula Nasal Cannula Room Air Oxygen Flow Rate (L/min) 2 2 06/11/25 07:44 06/11/25 07:44 Temperature Temperature Source Pulse Rate 72 Pulse Strength Respiratory Rate 16 Respiratory Effort Respiratory Depth Respiratory Pattern Normal Blood Pressure Blood Pressure Mean Pulse Ox 94 Oxygen Delivery Method Room Air Oxygen Flow Rate (L/min) Weight Weight: 82 kg Body Mass Index (BMI) 33.0 EEG Results Procedure Details EEG Procedure Details: NASIM GARZA is a 79 year old F with a past medical history of , who presents for evaluation of Electroencephalogram on DATE at TIME Physical Exam Neuro Neuro Narrative: awake alert oriented x3 following commands language intact face symmetric sensory intact move all ext antigravity with no drift Lab / Micro Data 06/10/25 10:55 06/11/25 06:00 Labs: Laboratory Results - last 24 hr 06/10/25 10:47: POC Glucose 130 H 06/10/25 10:55: WBC 7.5, RBC 2.86 L, Hgb 10.5 L, Hct 31.2 L, MCV 109.1 H, MCH 36.7 H, MCHC 33.7, RDW Std Deviation 62.1 H, RDW Coeff of Eze 15.6 H, Plt Count 250, MPV 9.7, Immature Gran % (Auto) 0.300, Neut % (Auto) 80.5 H, Lymph % (Auto) 10.5 L, [place] % (Auto) 7.8, Eos % (Auto) 0.5, Baso % (Auto) 0.4, Absolute Neuts (auto) 6.0, Absolute Lymphs (auto) 0.78 L, Nucleated RBC % 0, PT 16.0 H, INR 1.3, APTT 26.0, Sodium 139, Potassium 3.1 L, Chloride 106, Carbon Dioxide 23.3, Anion Gap 10, BUN 13, Creatinine 0.69 L, Estim Creat Clear Calc 58.24, Est GFR (MDRD) Non-Af 89, BUN/Creatinine Ratio 18.5, Glucose 126 H, Calcium 7.6, Troponin T High Sens 8 D 06/10/25 12:50: Troponin T Hi Sens 2 Hr 9 06/10/25 14:47: Troponin T Hi Sens 4Hr 15 H 06/11/25 06:00: Sodium 139, Potassium 3.3, Chloride 107, Carbon Dioxide 24.7, Anion Gap 8, BUN 12, Creatinine 0.69 L, Estim Creat Clear Calc 57.51, Est GFR (MDRD) Non-Af 89, BUN/Creatinine Ratio 17.2, Glucose 111 H, Calcium 7.3 L, Triglycerides 42, Cholesterol 90, LDL Cholesterol, Calc 47, VLDL Cholesterol 8, HDL Cholesterol 34 L, Cholesterol/HDL Ratio 2.64 Rhythm Strip Rhythm Strip: Sinus Rhythm Rate: 66 Ectopy: None Imaging Radiology Impression Brain CT 06/10/25 12:00 IMPRESSION: No acute intracranial abnormalities. Reading Location: [facility] Head/Neck CTA 06/10/25 12:00 IMPRESSION: No hemodynamically significant stenosis in the head and neck. Reading Location: [facility] Active Medications Active Medications Active Medications: Current Medications Generic Name Dose Route Start Last Admin Trade Name Freq PRN Reason Stop Dose Admin Acetaminophen 650 mg 06/10/25 15:02 Acetaminophen 325 Mg Tablet PO Q6H PRN PRN Pain 1-10 Or Fever >100.7 Albuterol Sulfate 2.5 mg 06/10/25 15:10 06/11/25 07:42 Albuterol 2.5 Mg/3 Ml Vial.Neb. INHALATION 2.5 mg Q6HWA.RT BOBBY Administration Budesonide 0.5 mg 06/10/25 15:10 06/11/25 07:42 Budesonide Respules 0.5 Mg/2 Ml Ampul.Neb. INHALATION 0.5 mg Q12H.RT BOBBY Administration Enoxaparin Sodium 40 mg 06/11/25 10:00 Enoxaparin 40 Mg/0.4 Ml Syringe SC DAILY BOBBY Escitalopram Oxalate 20 mg 06/11/25 10:00 Escitalopram Oxalate 20 Mg Tablet PO DAILY BOBBY Folic Acid 1 mg 06/11/25 08:00 Folic Acid 1 Mg Tablet PO BREAKFAST BOBBY Furosemide 40 mg 06/10/25 18:00 06/10/25 18:40 Furosemide 40 Mg/4 Ml Vial IV 40 mg [id number] BOBBY Administration Protocol Hydralazine HCl 5 mg 06/10/25 15:02 Hydralazine 20 Mg/Ml Vial IV 06/11/25 15:02 Q30M PRN maintain BP parameters with HR <60 Sodium Chloride 250 mls @ 15 mls/hr 06/10/25 16:01 IV .[id number] PRN Saline Flush Sodium Chloride 250 mls @ 15 mls/hr 06/10/25 16:01 IV .[id number] PRN Additional IVPB Infusion Labetalol HCl 10 - 20 mg 06/10/25 15:02 Labetalol 20 Mg/4 Ml Vial IV 06/11/25 15:02 Q10M PRN PRN maintain BP parameters with HR >/=60 Losartan Potassium 50 mg 06/11/25 10:00 Losartan Potassium 50 Mg Tablet PO DAILY [facility] Protocol Ondansetron HCl 8 mg 06/10/25 15:04 Ondansetron Odt 4 Mg Tablet PO Q8H PRN nausea and vomiting Ondansetron HCl 4 mg 06/10/25 15:02 Ondansetron 4 Mg/2 Ml Vial IV Q8H PRN PRN NAUSEA/VOMITING Potassium Chloride 20 meq 06/10/25 22:00 06/10/25 22:36 Potassium Chloride Oral Tablet 20 Meq PO 20 meq BID BOBBY Administration Sodium Chloride 10 - 40 ml 06/10/25 16:01 0.9% Saline Lock 10 Ml Syringe IV UD PRN SALINE FLUSH Trazodone HCl 50 mg 06/10/25 22:00 06/10/25 22:37 Trazodone 50 Mg Tablet PO 50 mg QHS BOBBY Administration NIHSS NIHSS Nursing Documentation NIHSS Nursing Documentation: NIH Stroke Scale Start: 06/10/25 11:51 Freq: Status: Discharge Protocol: Activity Type Activity Date Activity User E-sign Co-sign Detail Recorded Client Recorded Date Recorded By Document 06/10/25 10:45 JS desktop 06/10/25 11:51 JS 06/10/25 10:45 NIH Stroke Scale [NIHSS] A score of 0 is normal or asymptomatic . Total possible score is 42. Inpatient: RN or Physician to activate a stroke alert for onset of new stroke symptoms or with NIHSS increase >/= 3 points. Following change in neurological status, NIHSS will be performed per physician order or more frequently PRN. -1a. Level of Consciousness 0 - Alert; keenly responsive -1b. LOC Questions 0 - Answers BOTH questions correctly -1c. LOC Commands 0 - Performs BOTH tasks correctly -2. Best Gaze 0 - Normal -3. Visual 0 - No visual loss -4. Facial Palsy 0 - Normal symmetrical movements -5a. Left Arm 0 - No drift; arm holds 90 ( or 45) degrees for full 10 seconds -5b. Right Arm 0 - No drift; arm holds 90 ( or 45) degrees for full 10 seconds -6a. Left Leg 0 - No drift; leg holds 30- degree position for full 5 seconds -6b. Right Leg 0 - No drift; leg holds 30- degree position for full 5 seconds -7. Limb Ataxia 0 - Absent -8. Sensory 0 - Normal; no sensory loss -9. Best Language 0 - No aphasia; normal -10. Dysarthria 0 - Normal -11. Extinction and Inattention 0 - No abnormality -Total 0 Query Text:A score of 0 is normal or asymptomatic. Total possible score is 42 . ED: Notify Physician for NIHSS increase by > / = 3 points. Inpatient: RN or Physician to activate a stroke alert for NIHSS increase of > / = 3 points. NIHSS: Ischemic Stroke/TIA Start: 06/10/25 15:02 Text: For PCU Patients: NIH and Neuro Check every 4 Status: Active hours, PRN and with change in RN caregiver. Freq: [id number] Protocol: Activity Type Activity Date Activity User E-sign Co-sign Detail Recorded Client Recorded Date Recorded By Document 06/11/25 07:00 MEL [id number] 06/11/25 08:17 MEL 06/11/25 07:00 -1a. Level of Consciousness 0 - Alert; keenly responsive -1b. LOC Questions 0 - Answers BOTH questions correctly -1c. LOC Commands 0 - Performs BOTH tasks correctly -2. Best Gaze 0 - Normal -3. Visual 0 - No visual loss -4. Facial Palsy 0 - Normal symmetrical movements -5a. Left Arm 0 - No drift; arm holds 90 ( or 45) degrees for full 10 seconds -5b. Right Arm 0 - No drift; arm holds 90 ( or 45) degrees for full 10 seconds -6a. Left Leg 0 - No drift; leg holds 30- degree position for full 5 seconds -6b. Right Leg 0 - No drift; leg holds 30- degree position for full 5 seconds -7. Limb Ataxia 0 - Absent -8. Sensory 0 - Normal; no sensory loss -9. Best Language 0 - No aphasia; normal -10. Dysarthria 0 - Normal -11. Extinction and Inattention 0 - No abnormality -Total 0 Query Text:A score of 0 is normal or asymptomatic. Total possible score is 42 . ED: Notify Physician for NIHSS increase by > / = 3 points. Inpatient: RN or Physician to activate a stroke alert for NIHSS increase of > / = 3 points. Coma Scale [Assess] -Eye Opening Spontaneous -Motor Obeys Commands -Verbal Oriented [Total] -Coma Scale Total 15
[2025-06-11] MEDS: Potassium Chloride Oral Tablet 20 MEQ PO ×2 (09:52→22:30)
[2025-06-11] MEDS: Aspirin E.C. 81 MG Tablet PO (13:20)
[2025-06-12 00:31] VITALS: BMI 33.0
[2025-06-12 02:20] VITALS: BP 115/54; PULSE 73; RESP 18; TEMP 37.1; O2SAT 96
[2025-06-12 06:00] VITALS: BP 115/62; PULSE 68; RESP 18; TEMP 36.6; O2SAT 96; BMI 33.0
[2025-06-12] MEDS: Albuterol 2.5 MG/3 ML VIAL.NEB. INHALATION ×2 (07:21→13:27)
[2025-06-12] MEDS: Budesonide Respules 0.5 MG/2 ML AMPUL.NEB. INHALATION (07:21)
[2025-06-12 07:22] VITALS: PULSE 65; RESP 16; O2SAT 92
[2025-06-12 07:29] LABS: Anion Gap 7 (5-15); BUN 14 mg/dL (4-19); BUN/Creat Ratio 22.0 RATIO (10-20); Calcium,Total 7.3 mg/dL (7.6-11.0); Carbon Dioxide 26.4 mmol/L (21.0-32.0); Chloride 106 mmol/L (98-108); Estimated Creatinine Clearance 57.48 ml/min (50-250); Glucose 106 mg/dL (70-99); Potassium 3.4 mmol/L (3.3-5.1)
[2025-06-12 08:02] VITALS: BMI 33.0
--- NOTE | 2025-06-12 09:49 | MRI_ITS ---
PROCEDURE: BRAIN WITHOUT CONTRAST 06/12/2025 REASON FOR EXAM: EXPRESSIVE APHASIA TECHNIQUE: Procedure Code: MRIBR Modality: MR Procedure: BRAIN WITHOUT CONTRAST Multiplanar and multisequence images were obtained. COMPARISON: June 10, 2025 FINDINGS: Brain: No acute intracranial hemorrhage. Minimal T2 prolongation in the periventricular white matter. A few scattered foci of T2 prolongation in the deep white matter. No restricted diffusion. Ventricles: Mild volume loss commensurate with age. Major Intracranial Vessels: Flow voids are grossly unremarkable. Correlate with CT angiogram of June 10, 2025 Sinuses: Mild mucosal thickening maxillary sinuses. Mastoids: Bilateral mastoid effusions. Right middle ear effusion. MRI/Brain without Contrast IMPRESSION: 1. No evidence of acute ischemia or hemorrhage. 2. Minimal changes of chronic microvascular ischemia. 3. Bilateral mastoid effusions. Right middle ear effusion. Mastoiditis and o titis media are in the differential. Reading Location: [id number]
[2025-06-12] MEDS: Aspirin E.C. 81 MG Tablet PO (09:53)
[2025-06-12] MEDS: Potassium Chloride Oral Tablet 20 MEQ PO (09:53)
[2025-06-12] MEDS: 0.9% Saline Lock 10 ML Syringe IV (09:57)
[2025-06-12 10:00] VITALS: BP 124/58; PULSE 67; RESP 18; TEMP 36.5; O2SAT 95
[2025-06-12 13:28] VITALS: PULSE 73; RESP 16
[2025-06-12 15:50] VITALS: BMI 33.0
--- NOTE | 2025-06-12 15:59 | DCINST_ITS ---
Discharge Instructions DC O2, CPAP, BIPAP needs Home O2 Discharge instructions: No Dressing / Incision Discharge Activity: Return to Normal Activity Weight Bearing Status: Weight bearing as tolerated Dressing / Incision Call your doctor if you observe: Fever of 101 or Higher, Shortness of breath, Dizziness, Swelling in the ankles, Chest pain and Increased palpitations (irregular heartbeat) Follow Up Care Test Results: Test results from this visit will be discussed in further detail at your follow- up appointment, if applicable. Discharge Plan Admission Admit Date/Time: 06/10/25 14:39 Primary Reason for Your Visit: TIA Attending Provider: Jayla Conde Primary Care Provider: Megan Harris Consulting Providers: Seun Salmon; Darrell Sethi; Veronica Duong; Kacie Elliott; Diana Phoenix; Brett Dan; Yolis Masters; Rad Monroe; Johnathan Alvarez; Kye Wadsworth; Misti Carranza; Heather Perry; Wallace Reese; Zehra Brothers; Sree Rodriguez; Zaria Mcgrath; Grant Matt; Marnie Steiner; Nhan Lora; Katerin Carrasco; Shawanda Mehta; Kameron Harris Instructions Patient Instructions: JOE Dc Discharge Orders/Prescriptions Prescriptions: New aspirin 81 mg Tablet,Delayed Release (Dr/Ec) 81 mg PO BREAKFAST Qty: 30 2RF Continued escitalopram oxalate [Lexapro] 10 mg tablet 20 mg PO DAILY budesonide-formoterol [Symbicort] 160-4.5 mcg/actuation HFA aerosol inhaler 2 inh inhalation BID zinc 50 mg tablet 50 mg PO DAILY folic acid 1 mg tablet 1 mg PO DAILY potassium chloride [Klor-Con M20] 20 mEq tablet,ER particles/crystals 20 meq PO BID ondansetron 8 mg tablet,disintegrating 8 mg PO Q8H PRN (Reason: nausea and vomiting) hydrochlorothiazide 12.5 mg tablet 12.5 mg PO DAILY Repatha SureClick 140 mg/mL pen injector 140 mg subcut .Q 2 WEEKS losartan 50 mg tablet 50 mg PO DAILY Qty: 90 3RF Referrals / Follow Up: Megan Harris DO [Primary Care Provider] - Within 1 Week Disposition Disposition (needs filled in before D/C Order can be placed): Home, Self Care
--- NOTE | 2025-06-12 15:59 | DS.PCM_ITS ---
Providers Date of Admission: 06/10/25 Date of Discharge: 06/12/25 Primary Care Physician: Dr. Megan Harris, DO Consultations 06/10/25 15:02 Consult: Tele-Neurology Routine Consulting Provider: [facility] Reason for Consult: Acute Ischemic Stroke/TIA EMERGENT Consult: No MD Notified: Yes Date Notified: 06/11/25 Time Notified: 07:33 Method of Notification: Text Nursing Unit Staff Notify [facility] of Tele-Neurology Consult: Yes Reason For Visit: TIA. CHF Diagnosis Discharge Diagnosis (1) Brain TIA: Status: Acute Code(s): G45.9 - Transient cerebral ischemic attack, unspecified (2) CHF exacerbation: Status: Chronic Code(s): I50.9 - Heart failure, unspecified Medications at Discharge Home Medications escitalopram oxalate 10 mg tablet (Lexapro) 20 mg PO DAILY 02/10/24 evolocumab 140 mg/mL subcutaneous pen injector (Repatha SureClick) 140 mg subcut .Q 2 WEEKS 03/15/24 losartan 50 mg tablet 50 mg PO DAILY #90 TABLETS 04/19/24 budesonide-formoterol HFA 160 mcg-4.5 mcg/actuation aerosol inhaler (Symbicort) 2 inh inhalation BID 06/02/25 folic acid 1 mg tablet 1 mg PO DAILY 06/02/25 ondansetron 8 mg disintegrating tablet 8 mg PO Q8H PRN nausea and vomiting 06/02/25 potassium chloride 20 mEq tablet,extended release(part/cryst) (Klor-Con M) 20 meq PO BID 06/02/25 zinc 50 mg tablet 50 mg PO DAILY 06/02/25 hydrochlorothiazide 12.5 mg tablet 12.5 mg PO DAILY 06/05/25 aspirin 81 mg tablet,delayed release 81 mg PO BREAKFAST #30 tabs 06/12/25 Hospital Course Operations None Procedures 2-D Echocardiogram Summary of Care Provided Minutes Spent on Discharge: 45 Hospital Course: Patient is a 79-year-old female with a past medical history of lung cancer was admitted through the ED on 06/10/2025 with a complaint of expressive aphasia with her last known well being around 8 AM on the day of admission. Symptoms lasted about 10 seconds and resolved. She had never had such symptoms before so she came into the ED where CT of the brain showed no acute intracranial pathology. CTA of the head and neck also showed no evidence of hemodynamically significant stenosis. She was admitted to manage for expressive aphasia to rule out a stroke. She had MRI of the brain done which did not show any evidence of a stroke. 2D echo done showed EF of 55 to 60% and normal diastolic function. Neurology reviewed her and recommended starting her on p.o. aspirin and continue with her Repatha. She is allergic to statins. She is follow-up with her primary care doctor within 1 to 2 weeks. Patient remained stable and was discharged home on 06/12/2025. Patient seen and examined prior to discharge. She had no active complaints and had an uneventful night. Review of systems otherwise negative. Labs and vitals reviewed. Home medication reviewed and reconciled. Physical Exam Const alert, oriented x3 and no apparent distress General Appearance: cooperative, comfortable and well kempt Orientation / Consciousness: awake HEENT normocephalic, head/scalp atraumatic, hearing grossly normal bilaterally and moist oral mucous membranes Mouth: oral and palatal mucosa normal Eyes PERRL, EOMs intact bilaterally and conjunctivae normal Neck no lymphadenopathy and supple Resp normal respiratory effort, no retractions, no use of accessory muscles and clear to auscultation bilaterally Cardio regular rate, regular rhythm, S1 normal heart sound, S2 normal heart sound and no murmurs GI normal to inspection, nondistended, normoactive bowel sounds, soft to palpation, non-tender and non-distended Extremity normal to inspection, full ROM and no clubbing, cyanosis or edema Skin no rashes or lesions noted and no wounds Neuro oriented x3, CN's II-XII intact bilaterally, moves all extremities, no focal motor deficits and no sensory deficits noted Sensorium / Orientation: awake and alert Motor Exam: strength 5/5 throughout Psych affect normal Weight / BMI Weight Weight: 180 lb 8.937 oz Body Mass Index (BMI) 33.0 ABG / Lab / Microbiology Data 06/10/25 10:55 06/12/25 06:28 Laboratory: Laboratory Results - last 24 hr 06/12/25 06:28: Sodium 140, Potassium 3.4, Chloride 106, Carbon Dioxide 26.4, Anion Gap 7, BUN 14, Creatinine 0.64 L, Estim Creat Clear Calc 57.48, Est GFR (MDRD) Non-Af 91, BUN/Creatinine Ratio 22.0 H, Glucose 106 H, Calcium 7.3 L Radiography Diagnostic Testing: Radiology Impression Echocardiogram 06/10/25 15:02 Interpretation Summary The estimated ejection fraction is 55???60 %. Normal diastolic function Bubble study is negative for intracardiac shunt. No significant change from previous echocardiogram. Ordering Physician: Kameron Harris Performed By: John Cardenas RCS Brain MRI 06/12/25 09:49 IMPRESSION: 1. No evidence of acute ischemia or hemorrhage. 2. Minimal changes of chronic microvascular ischemia. 3. Bilateral mastoid effusions. Right middle ear effusion. Mastoiditis and otitis media are in the differential. Reading Location: [facility] D/C Instructions Discharge Activity: Return to Normal Activity Weight Bearing Status: Weight bearing as tolerated Call your doctor if you observe: Fever of 101 or Higher, Shortness of breath, Dizziness, Swelling in the ankles, Chest pain and Increased palpitations (irregular heartbeat) DC O2, CPAP, BIPAP Needs Home O2 Discharge instructions: No Meaningful Use Info Meaningful Use Meaningful Use Diagnoses (Choose all that apply): None applicable Discharge Plan Admission Admit Date/Time: 06/10/25 14:39 Primary Reason for Your Visit: TIA Attending Provider: Jayla Conde Primary Care Provider: Megan Harris Consulting Providers: Seun Salmon; Darrell Sethi; Veronica Duong; Kacie Elliott; Diana Phoenix; Brett Dan; Yolis Masters; Rad Monroe; Johnathan Alvarez; Kye Wadsworth; Misti Carranza; Heather Perry; Wallace Reese; Zehra Brothers; Sree Rodriguez; Zaria Mcgrath; Grant Matt; Marnie Steiner; Nhan Lora; Katerin Carrasco; Shawanda Mehta; Kameron Harris Instructions Patient Instructions: TIA Dc Discharge Orders/Prescriptions Prescriptions: New aspirin 81 mg Tablet,Delayed Release (Dr/Ec) 81 mg PO BREAKFAST Qty: 30 2RF Continued escitalopram oxalate [Lexapro] 10 mg tablet 20 mg PO DAILY budesonide-formoterol [Symbicort] 160-4.5 mcg/actuation HFA aerosol inhaler 2 inh inhalation BID zinc 50 mg tablet 50 mg PO DAILY folic acid 1 mg tablet 1 mg PO DAILY potassium chloride [Klor-Con M20] 20 mEq tablet,ER particles/crystals 20 meq PO BID ondansetron 8 mg tablet,disintegrating 8 mg PO Q8H PRN (Reason: nausea and vomiting) hydrochlorothiazide 12.5 mg tablet 12.5 mg PO DAILY Repatha SureClick 140 mg/mL pen injector 140 mg subcut .Q 2 WEEKS losartan 50 mg tablet 50 mg PO DAILY Qty: 90 3RF Referrals / Follow Up: Megan Harris DO [Primary Care Provider] - Within 1 Week Disposition Disposition (needs filled in before D/C Order can be placed): Home, Self Care Charges/Coding Visit Charges Inpatient E&M: 94458 Disch Hosp >30min
[2025-06-12 16:02] VITALS: BP 124/58; PULSE 67; RESP 18; TEMP 36.5; O2SAT 95
== END 2025-06-12 16:54 | disposition home or self-care (01) | DRG 69 ==
LOC: ED 14:01 → PCU 14:49
PROVIDERS: Emergency Provider Emergency Medicine; PCP Internal Medicine; Visit Provider Student in an Organized Health Care Education/Training Program
DX: G45.9 Transient cerebral ischemic attack, unspecified (principal); I50.33 Acute on chronic diastolic (congestive) heart failure; C34.90 Malignant neoplasm of unspecified part of unspecified bronchus or lung; R47.01 Aphasia; I11.0 Hypertensive heart disease with heart failure; E78.5 Hyperlipidemia, unspecified; R44.1 Visual hallucinations; R47.1 Dysarthria and anarthria; Z79.82 Long term (current) use of aspirin; Z79.899 Other long term (current) drug therapy
CPT/HCPCS: 36415; 70450; 70496; 70498; 70551; 80048; 80061; 82962; 84484; 85025; 85610; 85730; 93005; 93306; 94640; 94668; 94762; 97110; 97116; 97162; 97165; 97802; 99285; Q9957; Q9967; A4216; J1938

== ENCOUNTER → 2025-06-19 | Outpatient (CLI) | payer MEDICARE, OTHER, SELFPAY ==
--- NOTE | 2025-06-19 08:24 | MRI_ITS ---
PROCEDURE: MRCP ABDOMEN WITHOUT CONTRAST 06/19/2025 REASON FOR EXAM: MRCP ABDOMEN - BILATED BILE DUCT SEEN ON ELASTOGRAPHY W/ ABDOM. U TECHNIQUE: Procedure Code: MRIMRCP Modality: MR Procedure: MRCP ABDOMEN WITHOUT CONTRAST Multiplanar and multisequence images were obtained. 2D and 3D MRCP images were obtained. CONTRAST: None COMPARISON: May 25, 2025, March 18, 2024 FINDINGS: Anasarca is present. [id number] bilateral pleural effusions with compressive atelectasis of the lung bases. Liver: Liver morphology is not particularly cirrhotic. Grossly, no mass is seen in the liver. Sensitivity for liver masses is decreased without the use of IV contrast. Additionally, in and out of phase imaging was not performed to assess for the presence of microscopic fat. Biliary: Gallbladder is normal except for a small filling defect at the body measuring 8 mm representing a small stone. No intrahepatic or extrahepatic biliary ductal dilation, and no choledocholithiasis. Common bile duct is 5.8 mm. The very distal most portion of the pancreatic duct and common bile duct near the pancreatic head are not well seen. Pancreas: No glandular atrophy. No duct dilation. No gross mass seen. Sensitivity for small and hypervascular masses is decreased without the use of intravenous contrast. Spleen: At the lower pole of the spleen there is a circumscribed fairly homogeneous mass measuring 6.4 x 6.9 x 7.3 cm. On T2 weighted imaging it is slightly greater than background liver. Standard T1 imaging was not provided nor was postcontrast imaging provided. SPGR which is somewhat T1 weighted shows the lesion to be relatively isointense. Adrenals: Normal Kidneys: No mass or collecting system dilation seen. Peritoneum / Retroperitoneum: No mass. Lymph Nodes: None appear enlarged Major Vessels: Normal caliber Bones: Limited but grossly normal. Degenerative disc disease is mild. MRI/MRCP Abdomen without Contrast IMPRESSION: 1. Anasarca. Mfqaaliq-ee-garbf volume pleural effusions with compressive atel ectasis. 2. Liver is non cirrhotic in morphology. Grossly no mass. 3. Gallstone. Otherwise unremarkable gallbladder and bile ducts. 4. Splenic mass measures 6.4 x 6.9 x 7.3 cm. In the absence of a known primar y, this is favored to represent a hemangioma. If desired, characterization could be attempted with postcontrast MRI. Alternativ leo, for a lesion of this size, nuclear medicine technetium 99m labeled red blood cell scan could be performed to include plana r and SPECT imaging. This was partially imaged on prior noncontrast chest CT in 2023 and is relatively unchanged in size. Reading Location: [id number]
== END | disposition home or self-care (01) ==
PROVIDERS: PCP Internal Medicine; Referring Provider Internal Medicine; Visit Provider Internal Medicine
DX: K83.8 Other specified diseases of biliary tract (principal)
CPT/HCPCS: 74181

== ENCOUNTER 2025-07-03 12:11 | Inpatient (IN) | payer MEDICARE, OTHER, SELFPAY ==
[2025-07-03] VITALS (11 sets, daily range): BP systolic 126–153; BP diastolic 59–78; PULSE 56–74; RESP 11–26; TEMP 36.3–36.9; O2SAT 86–97; BMI 31.6; BMI 31.7
--- NOTE | 2025-07-03 12:18 | RAD_ITS ---
PROCEDURE: CHEST 1 VIEW (PORTABLE) 07/03/2025 REASON FOR EXAM: SOB TECHNIQUE: Frontal view of the chest. COMPARISON: Prior study dated June 05, 2025. FINDINGS: Hardware: EKG electrodes are seen. A right-sided port a catheter is seen with the tip at the junction of the superior vena cava and right atrium. Heart: Cardiac and mediastinal contours are stable. Lungs: Persistent 28.7 mm x 49.7 mm nodular density in the right upper lobe. This has decreased in size as compared to prior study. Residual pleural-parenchymal changes at the left lung base. There has been improved aeration of the right lower lobe. Bones: Degenerative changes are identified within the thoracic spine. Other: Calcific tendinitis of the right shoulder. RAD/Chest 1 View (Portable) IMPRESSION: Persistent right upper lobe nodular density although it has improved as compare d to prior study. Residual pleural-parenchymal changes at the left lung base. There has been imp roved aeration at the right lung base. Reading Location: [facility]
--- NOTE | 2025-07-03 12:20 | EKG12_ITS ---
Test Reason : sob Blood Pressure : */* mmHG Vent. Rate : 57 BPM Atrial Rate : 57 BPM P-R Int : 118 ms QRS Dur : 98 ms QT Int : 450 ms P-R-T Axes : 9 -28 15 degrees QTcB Int : 438 ms Sinus bradycardia Low voltage QRS Borderline ECG Confirmed by RANULFO CLARK, CRISSY ([id number]), news copy editor MANDY WOMACK ([id number]) on 07/04/2025 7:29:08 AM Referred By: Matheus Confirmed By: CRISSY WINCHESTER MD
[2025-07-03 12:48] LABS: Hematocrit 35.0 % (37-47); Hemoglobin 11.4 g/dL (12.0-15.0); Immature Granulocytes Count 0.010 X10^3/uL (0.0-0.0); Mean Corp Hgb Conc 32.6 g/dL (32-36); Mean Corpuscular Volume 108.0 fL (81-99); Mean Platelet Vol. 10.2 fl (6.2-12.0); NRBC Flagged by Analyzer 0 % (0-5); Platelet Count 151 K/mm3 (150-450); RBC Distribution Width CV 13.6 % (11.6-14.6); RBC Distribution Width SD 54.7 fl (35.1-43.9); Red Blood Count 3.24 M/mm3 (4.2-5.4); White Blood Count 6.0 K/mm3 (4.4-11.0)
--- NOTE | 2025-07-03 13:37 | CT_ITS ---
PROCEDURE: CTA CHEST W/WO CONTRAST 07/03/2025 REASON FOR EXAM: SHORTNESS OF BREATH, KNOWN CANCER TECHNIQUE: Procedure Code: [id number] Modality: CT Procedure: CTA CHEST W/WO CONTRAST Multiplanar Sagittal and Coronal images were obtained. 3D post processing was performed CONTRAST: Isovue 370 VOLUME: 100 4.6 mL One or more dose reduction techniques were used (e.g., Automated exposure control, adjustment of the mA and/or kV according to patient size, use of iterative reconstruction technique). RADIATION DOSE SUMMARY: CTDlvol: 4.6 mGy DLP: 204.15 mGycm COMPARISON: Prior chest radiograph done earlier in the day. FINDINGS: Hardware: Right-sided port a catheter with the tip in the superior vena cava. Lymph nodes: Small bilateral axillary and mediastinal lymph nodes. Heart: Coronary artery calcification. Thoracic Aorta: No thoracic aortic aneurysm or dissection. Pulmonary Vessels: There is evidence of intraluminal filling defects in branches of the right interlobar pulmonary artery extending into branches of the right lower lobe in keeping with pulmonary emboli. Lungs and Airways: Moderate degree of bilateral pleural effusions with bibasilar atelectasis and/or infiltrate. Volume loss and soft tissue mass in the right upper lobe in keeping with known carcinoma. Increased markings in the posterior aspect of the lingular segment of the left upper lobe suggestive of atelectasis. Upper Abdomen: Unremarkable Bones: Degenerative changes of the thoracic spine. CT/CTA Chest W/WO Contrast IMPRESSION: Right pulmonary emboli. Persistent mass in the right upper lobe with volume loss. Moderate degree of bilateral pleural effusions with bibasilar compressive atele ctasis and/or infiltrates. Reading Location: [place] [id number]
[2025-07-03 13:48] LABS: Anion Gap 8 (5-15); BUN 18 mg/dL (4-19); BUN/Creat Ratio 27.2 RATIO (10-20); Calcium,Total 7.7 mg/dL (7.6-11.0); Carbon Dioxide 24.0 mmol/L (21.0-32.0); Chloride 107 mmol/L (98-108); Estimated Creatinine Clearance 56.27 ml/min (50-250); Glucose 108 mg/dL (70-99); Potassium 3.4 mmol/L (3.3-5.1)
[2025-07-03] MEDS: 0.9% Normal Saline (500mL Bag) 500 ML 999 ML IV (13:52)
--- NOTE | 2025-07-03 14:14 | ED.VIS.DYS ---
HPI History of Present Illness Chief Complaint: Shortness of Breath Narrative Narrative: Chief complaint and HPI: 79-year-old female with past medical history of adenocarcinoma lung cancer, HTN, HLD, on 2 L nasal cannula at night presents for evaluation of shortness of breath. Patient follows with Dr. Jung for oncology. She was on chemotherapy and immunotherapy but due to the side effects she was taken off and started on Keytruda. Her last dose was 2 weeks ago. Patient states that she has had progressive shortness of breath, worse with ambulation. She has a history of a thoracentesis which she states was months ago. She denies any fever, chills, URI symptoms, chest pain, abdominal pain, nausea, vomiting, bilateral lower extremity swelling. Review of systems: See HPI Medications: As listed on the chart Allergies: As listed on the chart PFSH: Per chart Vital signs: As listed on the chart. Reviewed. Physical exam: Gen: A&O x3, NAD Head: Normocephalic, atraumatic Eyes: No sclera icterus, conjunctiva clear ENT: Moist mucous membranes Neck: Trachea midline, No JVD CV: RRR, no murmurs, no peripheral edema Resp: Lungs CTA BL, no w/r/c, 2 L nasal cannula GI: Abd soft, non-distended, non-tender, no r/r/g Musc: Full ROM, no deformity Skin: Warm, dry Neuro: Alert, oriented, grossly intact, sensation intact Psych: Cooperative, appropriate mood and affect [facility] Medical History Adenocarcinoma, lung Lung cancer Wears hearing aid Wears glasses Post-menopausal Depression History of steroid therapy Arthritis Back pain Gastric reflux Non-smoker Shortness of breath on exertion History of echocardiogram History of stress test Cardiology follow-up encounter MARKS (dyspnea on exertion) Pulmonary artery hypertension Asthma Essential hypertension Class 1 obesity Dysthymic disorder Bradycardia Osteoporosis Hyperlipidemia NAFLD (nonalcoholic fatty liver disease) Vitamin D deficiency Allergic rhinitis Chronic sinusitis Psoriatic arthritis GERD (gastroesophageal reflux disease) DDD (degenerative disc disease) Home Medications ?Medication ?Instructions ?Recorded ?Last Taken ?Type escitalopram oxalate 10 mg tablet 10 mg PO DAILY 02/10/24 07/02/25 History (Lexapro) evolocumab 140 mg/mL subcutaneous 140 mg subcut .COMPLEX 03/15/24 06/28/25 History pen injector (ewelina Thrasher) losartan 50 mg tablet 50 mg PO DAILY #90 TABLETS 04/19/24 07/02/25 Rx budesonide-formoterol HFA 160 2 inh inhalation BID 06/02/25 07/03/25 History mcg-4.5 mcg/actuation aerosol inhaler (Symbicort) folic acid 1 mg tablet 1 mg PO DAILY 06/02/25 07/02/25 History potassium chloride 20 mEq 20 meq PO BID 06/02/25 07/03/25 History tablet,extended release(part/cryst) (Klor-Con M) hydrochlorothiazide 12.5 mg tablet 12.5 mg PO DAILY 06/05/25 07/03/25 History aspirin 81 mg tablet,delayed 81 mg PO BREAKFAST #30 tabs 06/12/25 07/03/25 Rx release trazodone 50 mg tablet 50 mg PO QHS 07/03/25 07/02/25 History zinc acetate 50 mg (zinc) capsule 50 mg PO DAILY 07/03/25 07/03/25 History (Galzin) Allergy/AdvReac Type Severity Reaction Status Date / Time ezetimibe (From Zetia) AdvReac myalgia Verified 07/03/25 12:14 Ehnergy-LOT-UeB Reductase AdvReac myalgia Verified 07/03/25 12:14 Inhibitor Family History Father Colon cancer Mother CAD (coronary artery disease) Brother Colon cancer Sister CAD (coronary artery disease) Sudden cardiac Myocardial infarction Surgical History History of cardiac catheterization History of carpal tunnel surgery of right wrist Hx of colonoscopy History of carpal tunnel release Social History Smoking Status: Never smoker alcohol intake: never substance use type: does not use caffeine: Yes Type: coffee Number of servings: 2 what type of physical activity do you participate in: none seatbelt use: always do you feel safe at home: Yes EXAM Physical Exam Const Vital Signs: 07/03/25 12:12 07/03/25 13:11 07/03/25 13:11 Temperature 97.6 F L Temperature Source Oral Pulse Rate 74 Respiratory Rate 26 H Respiratory Effort Respiratory Depth Respiratory Pattern Blood Pressure 126/59 H Blood Pressure Mean 81 Pulse Ox 86 Oxygen Delivery Method Room Air Nasal Cannula Nasal Cannula Oxygen Flow Rate (L/min) 2 2 07/03/25 13:12 07/03/25 13:15 07/03/25 13:59 Temperature Temperature Source Pulse Rate 63 59 L Respiratory Rate 14 16 Respiratory Effort Normal Non-Labored Respiratory Depth Normal Respiratory Pattern Normal Blood Pressure Blood Pressure Mean Pulse Ox 97 Oxygen Delivery Method Nasal Cannula Nasal Cannula Oxygen Flow Rate (L/min) 2 2 07/03/25 14:00 07/03/25 15:00 07/03/25 15:18 Temperature Temperature Source Pulse Rate 58 L 56 L Respiratory Rate 11 L 22 H Respiratory Effort Respiratory Depth Respiratory Pattern Blood Pressure 139/62 H Blood Pressure Mean 87 Pulse Ox 93 88 92 Oxygen Delivery Method Room Air Nasal Cannula Oxygen Flow Rate (L/min) 2 MDM MDM MDM Narrative Medical decision making narrative: 79-year-old female with past medical history of adenocarcinoma lung cancer, HTN, HLD, on 2 L nasal cannula at night presents for evaluation of shortness of breath. Patient follows with Dr. Jung for oncology. She was on chemotherapy and immunotherapy but due to the side effects she was taken off and started on Keytruda. Her last dose was 2 weeks ago. Patient states that she has had progressive shortness of breath, worse with ambulation. She has a history of a thoracentesis which she states was months ago. Patient not on blood thinners. On presentation, patient was hypoxic at 86% on room air. She was placed on 2 L nasal cannula. She is now 99% on 2 L. Will take off oxygen and reassess. Differential diagnosis includes but is not limited to symptomatic lung cancer, PE, pleural effusion, CHF, viral illness, suspect less likely ACS. DuoNeb ordered for symptoms. Respiratory workup ordered. EKG and chest x-ray reviewed. CBC without leukocytosis. Patient has baseline anemia of 11.4. Platelets unremarkable. BMP relatively unremarkable. COVID, flu, RSV negative. Troponin 9. BNP unremarkable. Lactic acid. During her workup, patient's oxygen decreased to 88%. Patient placed back on 2 L nasal cannula.CTA shows right pulmonary emboli. Persistent mass in the right upper lobe with volume loss. Moderate degree of bilateral pleural effusions with bibasilar compressive atelectasis and/or infiltrates. Patient's complaints as well as physical exam is not consistent with pneumonia however I do think she has compressive atelectasis from her bilateral pleural effusions. They are quite large. I do think she would benefit from a thoracentesis. Patient will be placed on heparin with plans for admission. I did speak with the hospitalist, Dr. Lockwood who agrees. Patient was updated with results confirmed understand the plan. Patient admitted. EKG: Interpreted by me/EM physician: EKG shows sinus bradycardia without any acute ischemic changes. Heart rate 57 Diagnostic: Interpreted by me/EM physician: Chest x-ray shows her persistent right upper lobe density. Now large effusion, pneumonia, cardiomegaly. Radiology in agreement. Residual pleural-parenchymal changes at the left lung base per radiology. Impression: 1. Right pulmonary emboli 2. History of adenocarcinoma of the lung 3. Bilateral pleural effusions Lab Data Labs: Laboratory Results - last 24 hr 07/03/25 07/03/25 12:39 13:47 WBC 6.0 RBC 3.24 L Hgb 11.4 L Hct 35.0 L MCV 108.0 H MCH 35.2 H MCHC 32.6 RDW Std Deviation 54.7 H RDW Coeff of Eze 13.6 Plt Count 151 MPV 10.2 Immature Gran % (Auto) 0.200 Neut % (Auto) 75.6 H Lymph % (Auto) 14.7 L [place] % (Auto) 6.5 Eos % (Auto) 2.7 Baso % (Auto) 0.3 Absolute Neuts (auto) 4.5 Absolute Lymphs (auto) 0.88 Nucleated RBC % 0 Sodium 139 Potassium 3.4 Chloride 107 Carbon Dioxide 24.0 Anion Gap 8 BUN 18 Creatinine 0.68 L Estim Creat Clear Calc 56.27 Est GFR (MDRD) Non-Af 89 BUN/Creatinine Ratio 27.2 H Glucose 108 H Lactic Acid < 1.0 Calcium 7.7 Troponin T High Sens 9 D NT pro BNP II 135 Radiography Diagnostic Testing: Clinical Impression(s) from Imaging Studies Chest X-Ray 07/03/25 12:18 IMPRESSION: Persistent right upper lobe nodular density although it has improved as compared to prior study. Residual pleural-parenchymal changes at the left lung base. There has been improved aeration at the right lung base. Reading Location: [facility]-IR-1 Chest CTA 07/03/25 13:37 IMPRESSION: Right pulmonary emboli. Persistent mass in the right upper lobe with volume loss. Moderate degree of bilateral pleural effusions with bibasilar compressive atelectasis and/or infiltrates. Reading Location: [facility]1 Discharge Plan Triage Chief Complaint: Shortness of Breath ED Provider: John Johnson Dx/Rx/DC Orders Prescriptions: No Action escitalopram oxalate [Lexapro] 10 mg tablet 10 mg PO DAILY budesonide-formoterol [Symbicort] 160-4.5 mcg/actuation HFA aerosol inhaler 2 inh inhalation BID folic acid 1 mg tablet 1 mg PO DAILY potassium chloride [Klor-Con M20] 20 mEq tablet,ER particles/crystals 20 meq PO BID hydrochlorothiazide 12.5 mg tablet 12.5 mg PO DAILY Repatha SureClick 140 mg/mL pen injector 140 mg subcut .COMPLEX Rx Instructions: 140 mg subcutaneously q2w; aspirin 81 mg Tablet,Delayed Release (Dr/Ec) 81 mg PO BREAKFAST Qty: 30 2RF trazodone 50 mg tablet 50 mg PO QHS Galzin 50 mg (zinc) capsule 50 mg PO DAILY losartan 50 mg tablet 50 mg PO DAILY Qty: 90 3RF Primary Care Provider: Megan Harris Referrals: Megan Harris DO [Primary Care Provider, Internal Medicine] Print Language: Chinese
[2025-07-03 14:47] LABS: Pro- Brain NATRIURETIC PEPTIDE 135 pg/mL (<=1800); Troponin T High Sensitivity 9 ng/L (<=14)
--- NOTE | 2025-07-03 16:21 | PCM.HP.STD ---
HPI - General General Date of Admission: 07/03/25 Date of Service: 07/03/25 Chief Complaint: Increase shortness of breath HPI Narrative NASIM GARZA, is a 79-year-old female history of adenocarcinoma of the lung on 2 L nasal cannula at bedtime, depression, hypertension who presented to [facility] ED 07/03/2025 for shortness of breath. Follows with Dr. Jung with oncology. Was on chemoimmunotherapy but due to side effects she was taken off and started on Keytruda with first dose 2 weeks ago. She has had increasing shortness of breath worse with ambulation over the past couple of weeks as well. In the ED temp 97.6, heart rate 74, blood pressure 126/59, respiratory rate 26 and pulse ox 86% on room air with improvement to 97% on 2 L nasal cannula. CBC with white count of 6 and hemoglobin 11.4, BMP with BUN of 18 creatinine 0.68, glucose 108, lactic normal, proBNP 135, troponin of 9. Chest x-ray with persistent right upper lobe nodular density improved compared to prior study and residual pleural-parenchymal changes in the left lung base. CTA obtained which showed right pulmonary emboli as well as persistent mass in right upper lobe with volume loss and moderate degree of bilateral pleural effusions with bibasilar atelectasis and/or infiltrates. Given patient's hypoxia at rest which is new and her pleural effusions as well as PE hospitalist contacted for admission. Patient evaluated with family member at bedside, reportedly over the past month or so she has had increased swelling in her lower extremities and increased shortness of breath. Notes that she also had scan of her abdomen not long ago and was told she had fluid in her abdomen as well. This morning she was mostly concerned she woke up short of breath and this is unusual for her so she presented to the ED, notes that her lower extremities have been very swollen however slightly less so in the past week than previous but also notes a 30 pound weight gain over the past month as well. Denies any chest pain, no productive cough, no fevers. Had a little bit of dry heaves yesterday but none at this time reported. Does report she had a thoracentesis she thinks on the right about a month ago but this did not significantly improve her symptoms. [facility] Medical History Adenocarcinoma, lung Lung cancer Wears hearing aid Wears glasses Post-menopausal Depression History of steroid therapy Arthritis Back pain Gastric reflux Non-smoker Shortness of breath on exertion History of echocardiogram History of stress test Cardiology follow-up encounter MARKS (dyspnea on exertion) Pulmonary artery hypertension Asthma Essential hypertension Class 1 obesity Dysthymic disorder Bradycardia Osteoporosis Hyperlipidemia NAFLD (nonalcoholic fatty liver disease) Vitamin D deficiency Allergic rhinitis Chronic sinusitis Psoriatic arthritis GERD (gastroesophageal reflux disease) DDD (degenerative disc disease) Home Medications ?Medication ?Instructions ?Recorded ?Last Taken ?Type escitalopram oxalate 10 mg tablet 10 mg PO DAILY 02/10/24 07/02/25 History (Lexapro) evolocumab 140 mg/mL subcutaneous 140 mg subcut .COMPLEX 03/15/24 06/28/25 History pen injector (Repathlilian Galvinick) losartan 50 mg tablet 50 mg PO DAILY #90 TABLETS 04/19/24 07/02/25 Rx budesonide-formoterol HFA 160 2 inh inhalation BID 06/02/25 07/03/25 History mcg-4.5 mcg/actuation aerosol inhaler (Symbicort) folic acid 1 mg tablet 1 mg PO DAILY 06/02/25 07/02/25 History potassium chloride 20 mEq 20 meq PO BID 06/02/25 07/03/25 History tablet,extended release(part/cryst) (Klor-Con M) hydrochlorothiazide 12.5 mg tablet 12.5 mg PO DAILY 06/05/25 07/03/25 History aspirin 81 mg tablet,delayed 81 mg PO BREAKFAST #30 tabs 06/12/25 07/03/25 Rx release trazodone 50 mg tablet 50 mg PO QHS 07/03/25 07/02/25 History zinc acetate 50 mg (zinc) capsule 50 mg PO DAILY 07/03/25 07/03/25 History (Galzin) Allergy/AdvReac Type Severity Reaction Status Date / Time ezetimibe (From Zetia) AdvReac myalgia Verified 07/03/25 12:14 Uaghrza-VGH-TvV Reductase AdvReac myalgia Verified 07/03/25 12:14 Inhibitor Family History Father Colon cancer Mother CAD (coronary artery disease) Brother Colon cancer Sister CAD (coronary artery disease) Sudden cardiac Myocardial infarction Surgical History History of cardiac catheterization History of carpal tunnel surgery of right wrist Hx of colonoscopy History of carpal tunnel release Social History Smoking Status: Never smoker alcohol intake: never substance use type: does not use caffeine: Yes Type: coffee Number of servings: 2 what type of physical activity do you participate in: none seatbelt use: always do you feel safe at home: Yes ROS ROS Narrative General: Denies fever/chills, weight gain HENT: Denies headache, denies stuffy nose, denies sore throat EYES: Denies changes in vision Resp: Dry cough, increasing shortness of breath Cardiac: Denies chest pain GI: Denies abdominal pain, denies changes in bowel, some dry heaves yesterday : Denies changes in urination Extremity: Increased swelling in lower extremities MSK: Denies weakness Neuro: Denies any numbness/tingling Heme: Denies any bleeding or bruising Skin: Denies rashes Psychiatric: No complaints voiced Vital Signs Vital Signs Vital Signs: 07/03/25 12:12 07/03/25 13:11 07/03/25 13:11 Temperature 97.6 F L Temperature Source Oral Pulse Rate 74 Respiratory Rate 26 H Respiratory Effort Respiratory Depth Respiratory Pattern Blood Pressure 126/59 H Blood Pressure Mean 81 Pulse Ox 86 Oxygen Delivery Method Room Air Nasal Cannula Nasal Cannula Oxygen Flow Rate (L/min) 2 2 07/03/25 13:12 07/03/25 13:15 07/03/25 13:59 Temperature Temperature Source Pulse Rate 63 59 L Respiratory Rate 14 16 Respiratory Effort Normal Non-Labored Respiratory Depth Normal Respiratory Pattern Normal Blood Pressure Blood Pressure Mean Pulse Ox 97 Oxygen Delivery Method Nasal Cannula Nasal Cannula Oxygen Flow Rate (L/min) 2 2 07/03/25 14:00 07/03/25 15:00 07/03/25 15:18 Temperature Temperature Source Pulse Rate 58 L 56 L Respiratory Rate 11 L 22 H Respiratory Effort Respiratory Depth Respiratory Pattern Blood Pressure 139/62 H Blood Pressure Mean 87 Pulse Ox 93 88 92 Oxygen Delivery Method Room Air Nasal Cannula Oxygen Flow Rate (L/min) 2 Weight Weight: 78.608 kg Body Mass Index (BMI) 31.6 Physical Exam Narrative General: Alert, oriented, no apparent distress HEENT: Atraumatic, normocephalic Eyes: Anicteric, normal conjunctiva, extraocular movements grossly intact Neck: Supple Respiratory: Normal respiratory effort, bilateral diminished at bases with crackles above Cardiovascular: Regular rate and rhythm GI: Soft, nontender, nondistended Extremities: 2-3+ bilateral lower extremity pitting edema Musculoskeletal: Moving all extremities Neuro: No overt focal neurological deficits Skin: No rashes appreciated Psych: Cooperative Results Lab / Micro Data 07/03/25 12:39 07/03/25 12:39 Labs: Laboratory Results - last 24 hr 07/03/25 12:39: WBC 6.0, RBC 3.24 L, Hgb 11.4 L, Hct 35.0 L, MCV 108.0 H, MCH 35.2 H, MCHC 32.6, RDW Std Deviation 54.7 H, RDW Coeff of Zee 13.6, Plt Count 151, MPV 10.2, Immature Gran % (Auto) 0.200, Neut % (Auto) 75.6 H, Lymph % (Auto) 14.7 L, [place] % (Auto) 6.5, Eos % (Auto) 2.7, Baso % (Auto) 0.3, Absolute Neuts (auto) 4.5, Absolute Lymphs (auto) 0.88, Nucleated RBC % 0, Sodium 139, Potassium 3.4, Chloride 107, Carbon Dioxide 24.0, Anion Gap 8, BUN 18, Creatinine 0.68 L, Estim Creat Clear Calc 56.27, Est GFR (MDRD) Non-Af 89, BUN/Creatinine Ratio 27.2 H, Glucose 108 H, Calcium 7.7, Troponin T High Sens 9 D, NT pro BNP II 135 07/03/25 13:47: Lactic Acid < 1.0 Micro: Microbiology 07/03/25 13:43 Mucosa - Nose SARS-CoV-2, Influenza & RSV (PCR) - Final Imaging Radiology Impression Chest X-Ray 07/03/25 12:18 IMPRESSION: Persistent right upper lobe nodular density although it has improved as compared to prior study. Residual pleural-parenchymal changes at the left lung base. There has been improved aeration at the right lung base. Reading Location: [facility]-IR-1 Chest CTA 07/03/25 13:37 IMPRESSION: Right pulmonary emboli. Persistent mass in the right upper lobe with volume loss. Moderate degree of bilateral pleural effusions with bibasilar compressive atelectasis and/or infiltrates. Reading Location: [facility]-IR-1 Assessment & Plan Assessment/Plan (1) Pulmonary emboli: (2) Bilateral pleural effusion: PLAN: Plan # Hypoxia and increase dyspnea on exertion with bilateral pleural effusions and new PE -Patient 86% on room air in the ED, presently on 2 L nasal cannula -Patient does have moderate bilateral pleural effusions as well as a right sided pulmonary emboli -Has previously required thoracentesis, reports there were no canceled cells at that time -Will order therapeutic thoracentesis with lab studies -IV heparin subsequently turned off for procedure and likely DC on oral anticoagulation -Patient with normal BNP and troponin, just had an echo 06/12/2025 that was fairly unremarkable and would be within the time period that she had been having symptoms so will only order limited -IV Lasix -Daily weights, I's and O's # Adenocarcinoma of the lung stage IV -On Keytruda, follows Dr. Jung -Continue outpatient follow-up -Continue home inhalers -I/S #Depression/anxiety -Continue home medications #Hypertension - Continue home medications #DVT ppx: Patient on heparin drip as above Deedee Lockwood MD Charges/Coding Visit Charges Inpatient E&M: 86310 Init Hosp L2
[2025-07-03] MEDS: HEPARIN/D5w 25,000 UNITS 25,000 UNITS/250 ML IV.SOLN. 9.4 UNITS CONT INF (16:26)
[2025-07-03] MEDS: Heparin Injection (Vial) 5,000 UNIT/ML VIAL 4000 UNIT IV (16:26)
--- NOTE | 2025-07-03 16:41 | ECHOL_ITS ---
Reason For Study Reason For Study: PE/ EDEMA Procedure This was a limited 2D transthoracic echocardiogram. Exam performed portable in patient room. Left Ventricle Normal LV size. Left ventricular systolic function is normal. The left ventricular ejection fraction is 65 %. No regional wall motion abnormalities noted. Right Ventricle Normal RV size. Normal systolic function. Atria Normal left atrium. Normal right atrium. Mitral Valve There is mild to moderate mitral annular calcification. Mild (1+) mitral valve insufficiency. Tricuspid Valve Normal tricuspid valve. Mild (1+) tricuspid valve insufficiency. Pulmonary artery systolic pressure is 30 mmHg. Aortic Valve Trisinus/trileaflet aortic valve. Pulmonic Valve Normal pulmonic valve. Great Vessels Normal aortic root. The pulmonary artery is normal size. Inferior vena cava collapse with respiration. Pericardium/Pleural Trivial pericardial effusion. Small left pleural effusion. MMode/2D Measurements & Calculations LVIDd: 4.6 cm IVSd: 0.96 cm asc Aorta Diam: 3.4 cm LVIDs: 2.5 cm LVPWd: 0.92 cm RVDd: 2.6 cm FS: 45.7 % LAV(MOD-bp): 30.6 ml LVAd ap4: 21.0 cm2 LVAd ap2: 20.1 cm2 LAV(MOD-bp) Indexed: 17.0 ml/m2 LVLd ap4: 6.4 cm LVLd ap2: 7.1 cm LAV(MOD-sp2): 35.2 ml EDV(MOD-sp4): 56.9 ml EDV(MOD-sp2): 47.5 ml LAV(MOD-sp4): 24.6 ml EDV(sp4-el): 58.3 ml EDV(sp2-el): 48.2 ml LVAs ap4: 10.4 cm2 LVAs ap2: 11.1 cm2 LVLs ap4: 5.0 cm LVLs ap2: 5.9 cm ESV(MOD-sp4): 18.5 ml ESV(MOD-sp2): 18.1 ml ESV(sp4-el): 18.3 ml ESV(sp2-el): 17.7 ml EF(MOD-sp4): 67.5 % EF(MOD-sp2): 61.9 % EF(sp4-el): 68.7 % SV(MOD-sp4): 38.4 ml SV(MOD-sp2): 29.4 ml SV(sp4-el): 40.1 ml SI(MOD-sp4): 21.3 ml/m2 SI(MOD-sp2): 16.3 ml/m2 Ao sinus diam: 3.2 cm LA A4 area: 12.0 cm2 LA dimension(2D): 2.9 cm TAPSE: 2.1 cm RA A4 area: 9.8 cm2 Doppler Measurements & Calculations TR max fernando: 260.6 cm/sec TR max P.5 mmHg ECHO/Echo, Limited Study Interpretation Summary Normal LV size. Left ventricular systolic function is normal. Pulmonary artery systolic pressure is 30 mmHg. The left ventricular ejection fraction is 65 %. Ordering Physician: Deedee Lockwood Referring Physician: Mgean Harris D.O. Performed By: Kandis Torrez RDCS
[2025-07-03 17:07] LABS: Prothrombin Time (Protime)PT. 15.6 SECONDS (11.7-14.9)
[2025-07-03 17:08] LABS: Partial Thromboplast Time 26.7 Seconds (24.1-36.2)
[2025-07-03] MEDS: Potassium Chloride Oral Tablet 20 MEQ PO (20:11)
[2025-07-03] MEDS: Budesonide Respules 0.5 MG/2 ML AMPUL.NEB. INHALATION (20:50)
[2025-07-03] MEDS: Albuterol 2.5 MG/3 ML VIAL.NEB. INHALATION (20:50)
[2025-07-03 23:21] LABS: Partial Thromboplast Time 135.0 Seconds (24.1-36.2)
[2025-07-04] VITALS (10 sets, daily range): BP systolic 116–139; BP diastolic 59–68; PULSE 62–75; RESP 15–18; TEMP 36.4–36.8; O2SAT 92–97; BMI 31.8
[2025-07-04] MEDS: Budesonide Respules 0.5 MG/2 ML AMPUL.NEB. INHALATION ×2 (06:48→19:42)
--- NOTE | 2025-07-04 07:00 | US_ITS ---
PROCEDURE: THORACENTESIS W US 07/04/2025 REASON FOR EXAM: BILATERAL SYMPTOMATIC EFFUSIONS TECHNIQUE: THORACENTESIS W US The procedure as well as the benefits and possible complications including bleeding and pneumothorax were explained to the patient. Informed consent was obtained. The overlying skin was prepped and draped in the usual sterile fashion. Following local anesthetic application, a 5 Slov[place] catheter was placed into the right pleural space. 530 mL of [place] colored fluid were aspirated. A sample was sent to the laboratory. The patient tolerated the procedure well. COMPARISON: Prior chest radiograph dated July 03 2025. FINDINGS: Successful right thoracentesis US/Thoracentesis W US IMPRESSION: Successful right thoracentesis. No immediate complication. Reading Location: [facility]
[2025-07-04 07:10] LABS: Hematocrit 31.4 % (37-47); Hemoglobin 10.5 g/dL (12.0-15.0); Immature Granulocytes Count 0.010 X10^3/uL (0.0-0.0); Mean Corp Hgb Conc 33.4 g/dL (32-36); Mean Corpuscular Volume 107.2 fL (81-99); Mean Platelet Vol. 10.3 fl (6.2-12.0); NRBC Flagged by Analyzer 0 % (0-5); Platelet Count 139 K/mm3 (150-450); RBC Distribution Width CV 13.4 % (11.6-14.6); RBC Distribution Width SD 53.7 fl (35.1-43.9); Red Blood Count 2.93 M/mm3 (4.2-5.4); White Blood Count 3.7 K/mm3 (4.4-11.0)
[2025-07-04 07:21] LABS: Partial Thromboplast Time 65.1 Seconds (24.1-36.2)
[2025-07-04 07:39] LABS: LDH 215 U/L (84-246)
--- NOTE | 2025-07-04 08:08 | PN.HOSP_ITS ---
Reason for Visit Chief Complaint: Increase shortness of breath Subjective Subjective No specific complaints at this time. States she has had previous thoracentesis unclear when her last one was. Objective Data Objective Data Vital Signs: Vital Signs Temp Pulse Resp BP Pulse Ox O2 Del Method O2 Flow Rate 98.2 F 64 18 134/68 H 93 Nasal Cannula 2 07/04/25 05:00 07/04/25 06:49 07/04/25 06:49 07/04/25 05:00 07/04/25 06:49 07/04/25 06:49 07/04/25 06:49 Oxygen Flow Rate (L/min) 2 Oxygen Delivery Method Nasal Cannula Weight: 79.1 kg Body Mass Index (BMI) 31.8 Intake & Output: Intake and Output for Last 24 Hours 07/02/25 07/03/25 07/04/25 23:59 23:59 23:59 Intake Total 566.43 / 566.43 0 / 0 Balance 566.43 / 566.43 0 / 0 Lab / Micro Data 07/04/25 06:57 07/04/25 06:57 Labs: Laboratory Results - last 24 hr 07/03/25 12:39: WBC 6.0, RBC 3.24 L, Hgb 11.4 L, Hct 35.0 L, MCV 108.0 H, MCH 35.2 H, MCHC 32.6, RDW Std Deviation 54.7 H, RDW Coeff of Eze 13.6, Plt Count 151, MPV 10.2, Immature Gran % (Auto) 0.200, Neut % (Auto) 75.6 H, Lymph % (Auto) 14.7 L, Nye % (Auto) 6.5, Eos % (Auto) 2.7, Baso % (Auto) 0.3, Absolute Neuts (auto) 4.5, Absolute Lymphs (auto) 0.88, Nucleated RBC % 0, Sodium 139, Potassium 3.4, Chloride 107, Carbon Dioxide 24.0, Anion Gap 8, BUN 18, C reatinine 0.68 L, Estim Creat Clear Calc 56.27, Est GFR (MDRD) Non-Af 89, B UN/Creatinine Ratio 27.2 H, Glucose 108 H, Calcium 7.7, Troponin T High Sens 9 D, NT pro BNP II 135 07/03/25 13:47: Lactic Acid < 1.0 07/03/25 16:30: PT 15.6 H, INR 1.2, APTT 26.7 07/03/25 22:29: APTT 135.0 H* 07/04/25 06:57: WBC 3.7 L, RBC 2.93 L, Hgb 10.5 L, Hct 31.4 L, MCV 107.2 H, MCH 35.8 H, MCHC 33.4, RDW Std Deviation 53.7 H, RDW Coeff of Eze 13.4, Plt Count 139 L, MPV 10.3, Immature Gran % (Auto) 0.300, Neut % (Auto) 55.9, Lymph % (Auto) 31.0, Nye % (Auto) 8.2, Eos % (Auto) 3.8, Baso % (Auto) 0.8, Absolute Neuts (auto) 2.1, Absolute Lymphs (auto) 1.14, Nucleated RBC % 0, APTT 65.1 H, Lactate Dehydrogenase 215 Micro: Microbiology 07/03/25 13:43 Mucosa - Nose SARS-CoV-2, Influenza & RSV (PCR) - Final Radiography Diagnostic Testing: Radiology Impression Chest X-Ray 07/03/25 12:18 IMPRESSION: Persistent right upper lobe nodular density although it has improved as compared to prior study. Residual pleural-parenchymal changes at the left lung base. There has been improved aeration at the right lung base. Reading Location: [facility]- Chest CTA 07/03/25 13:37 IMPRESSION: Right pulmonary emboli. Persistent mass in the right upper lobe with volume loss. Moderate degree of bilateral pleural effusions with bibasilar compressive atelectasis and/or infiltrates. Reading Location: [facility]--1 Physical Exam Const alert, oriented x3, no apparent distress and well nourished; Negative for average body habitus or healthy appearing Constitutional Narrative: Obese, older, white female, sitting up in bed, on nasal cannula, no respiratory distress at this time, appears comfortable, awaiting thoracentesis HEENT head/scalp atraumatic and moist oral mucous membranes Head and Scalp: normocephalic Resp normal respiratory effort, no retractions, no use of accessory muscles and clear to auscultation bilaterally Resp Narrative: Decreased air movement left base to midlung Auscultation: Negative for rales, rhonchi or wheezes Cardio regular rate, regular rhythm, S1 normal heart sound, S2 normal heart sound, no murmurs, no rub, no gallops and no clicks GI normal to inspection, nondistended, normoactive bowel sounds, soft to palpation and non-tender Extremity Extremity Narrative: Trace bilateral lower extremity edema, pedal pulses 2+, radial pulses are 2+, no cyanosis or clubbing Neuro moves all extremities and no focal motor deficits Speech: speech normal Psych affect normal Psych Narrative: Very pleasant, eye contact is good and patient interacts appropriately Assessment & Plan Assessment/Plan (1) Pulmonary emboli: (2) Bilateral pleural effusion: PLAN: Plan Acute hypoxia/dyspnea secondary to bilateral pleural effusions-malignant/acute right-sided PE - Patient 86% on room air on presentation - Plan is for thoracentesis today on the right and left tomorrow - Also has a small right sided pulmonary emboli -Continue heparin drip and then will transition to Eliquis 10 mg p.o. twice daily for 7 days then 5 mg twice daily - IV heparin subsequently turned off for procedure and likely DC on oral anticoagulation - Echocardiogram shows an EF of 65% with pulmonary artery systolic pressure of 30 mmHg and no other acute findings - Will continue IV diuretics for now but I do not anticipate this will make a significant difference as I suspect this is malignant effusion - Daily weights, I's and O's - Continue I-S especially postprocedure to help with lung reexpansion - Will likely discontinue aspirin at discharge Adenocarcinoma of the lung stage IV - On Keytruda, follows Dr. Jung - Continue outpatient follow-up - Continue home inhalers Depression/anxiety - Continue home Lexapro - Continue trazodone GERD - continue home PPI Essential hypertension - Hold home HCTZ while on IV Lasix - Continue home losartan COPD - Continue home inhalers DVT prophylaxis - Heparin drip CODE STATUS - Full code Charges/Coding Visit Charges Inpatient E&M: 66401 Subs Hosp L2
[2025-07-04 09:08] LABS: Anion Gap 8 (5-15); BUN 15 mg/dL (4-19); BUN/Creat Ratio 20.6 RATIO (10-20); Calcium,Total 7.7 mg/dL (7.6-11.0); Carbon Dioxide 23.3 mmol/L (21.0-32.0); Chloride 109 mmol/L (98-108); Estimated Creatinine Clearance 56.45 ml/min (50-250); Glucose 96 mg/dL (70-99); Potassium 3.5 mmol/L (3.3-5.1)
[2025-07-04] MEDS: Ensure Plus High Protein 120 ML LIQUID PO (10:45)
[2025-07-04] MEDS: Lidocaine 2% (20 ml mdv) 20 ML Vial INFILT (12:14)
--- NOTE | 2025-07-04 12:15 | FLU_PTH ---
PATIENT: NASIM GARZA LOC: [facility] U#:[id number] AGE/SX: 79/F ROOM: [facility] RE07/04/[address]: Dr. Adore Carrasco DO : 1945 BED: 1 DIS: 07/05/2025 SPEC #: [id number] RECD: 07/04/25 12:35 STATUS: FABIAN REQ #: [id number] DAVY: 07/04/25 12:[address]: Adore Carrasco DEPT: CYTOLOGY RECD BY: [place] ENTERED: 07/04/25 15:16 SP TYPE: Fluid OTHR DR: DO Dr. Deedee Fish MD Tissues: A - Pleural fluid, NOS Procedures: Immunohistochemical Stains Special Stain Group II Surgery Specimen Level IV Cytospin Fluid IHC Stain ADDITIONAL HEADER OPERATION: Ultrasound guided thoracentesis PRE-OP DIAGNOSIS: Pleural effusion TISSUE SUBMITTED: A- Thoracentesis fluid for cytology DIAGNOSIS CYTOLOGY A. Pleural effusion, thoracentesis (cytospin, cellblock): * Rare atypical vacuolated cells - see note. Note: Rare atypical cells appear to be reactive for pancytokeratin. However, BerEp4 and WT-1 (to suggest carcinoma or mesothelial cells, respectively) are negative. Most of the cells are positive for CD45 (lymphocytes) or CD68 (macrophages) and consistent with chronic inflammation. CYTOLOGY STUDY Slides are reviewed. Slides are reviewed. All matched controls reacted appropriately. These tests were developed and their performance characteristics determined by [facility]. They may not have been cleared or approved by the U.S. Food and Drug Administration. The FDA has determined that such clearance or approval is not necessary. The above immunohistochemical markers and/or special stains have been reviewed by the Pathologist. CYTOLOGY GROSS A. Received is 85 ml of yellow-cloudy fluid labeled with the patient's name and and designated per the requisition as Thoracentesis fluid. Submitted for cytology and cell block preparation. 07/04/2025 CPT: 16406,54250 ,[id number],05543f5 ADDENDUM ADDENDUM ADDENDUM ADDENDUM ADDENDUM ADDENDUM ADDENDUM ADDENDUM ADDENDUM ADDENDUM ADDENDUM ADDENDUM ADDENDUM ADDENDUM ADDENDUM ADDENDUM 07/17/2025 10:30 ADDENDUM 07/17/2025 10:30 ADDENDUM 07/17/2025 10:30 ADDENDUM 07/17/2025 10:30 ADDENDUM 07/17/2025 10:30 This addendum is to report the IHC for CLDN4, performed at [facility]: A. IHC for CLDN4 is also negative, supporting a benign diagnosis. All controls show appropriate reactivity. (CLDN4) All immunohistochemistry, in situ hybridization, and histochemical tests were developed by and are performed at the [facility], [address] [place] [address], [place] [address]. All Immunofluorescent (IF)?tests were developed by and are performed at the [facility], [address] [place] [address], [place], [place] ?[address]. All tests reported here, except those addressing HER2 overexpression as a predictive marker, have not been cleared by or approved by the US Food and Drug Administration (FDA). The laboratory is regulated under CLIA as qualified to perform high-complexity testing. The tests are used for clinical purposes. They should not be regarded as investigational or for research.
--- NOTE | 2025-07-04 12:25 | RAD_ITS ---
PROCEDURE: CHEST INSP/EXP 2 VIEW 07/04/2025 REASON FOR EXAM: POST THORACENTESIS TECHNIQUE: Procedure Code: RADCXRINSPEXP Modality: DX Procedure: CHEST INSP/EXP 2 VIEW Inspiration expiration views were obtained following the right thoracentesis. COMPARISON: Prior study dated July 03, 2025. FINDINGS: No evidence of pneumothorax following the right thoracentesis. RAD/Chest Insp/Exp 2 View IMPRESSION: No evidence of pneumothorax following the right thoracentesis. Reading Location: [place] [address]
[2025-07-04] MEDS: Zinc Sulfate 50 mg zinc (220 mg) ORAL capsule PO (12:54)
[2025-07-04] MEDS: Aspirin E.C. 81 MG Tablet PO (12:55)
[2025-07-04] MEDS: Potassium Chloride Oral Tablet 20 MEQ PO ×2 (12:55→22:09)
[2025-07-04] MEDS: Furosemide 20 MG/2 ML VIAL IV (12:56)
[2025-07-04 13:11] LABS: Cytology, Body Fluid / CSF SEE PATHOLOGY REPORT
[2025-07-04 13:27] LABS: Body Fluid Mononuclear WBC # 0.705 10^3/uL; Body Fluid Mononuclear WBC % 99.0 %; Body Fluid Polynuclear WBC # 0.007 10^3/uL; Body Fluid Polynuclear WBC % 1.0 %; White Blood Count/Body Fluid 0.712 10^3/uL
[2025-07-04 14:13] LABS: Partial Thromboplast Time 37.0 Seconds (24.1-36.2)
[2025-07-04 14:35] LABS: Glucose, Body Fluid 109 mg/dL (Not Establ.)
[2025-07-04 15:19] LABS: Auto B Fluid Analyzer BKGD Ct COUNTS W/IN LIMITS (W/IN LIMITS); Source- Body Fluid PLEURAL FLUID
[2025-07-04 15:20] LABS: Appearance/Body Fluid CLEAR; Color/Body Fluid YELLOW; Red Cell Count/Body Fluid 115 /mm3
[2025-07-04 15:26] LABS: Neutrophil (Segs) 2 %
[2025-07-04 15:30] LABS: Body Fluid QC Type(s) BF1Q
--- NOTE | 2025-07-04 18:40 | US_ITS ---
PROCEDURE: THORACENTESIS W US 07/05/2025 REASON FOR EXAM: L THORACENTESIS TECHNIQUE: THORACENTESIS W US The procedure as well as the benefits and possible complications including infection, bleeding and pneumothorax were explained to the patient. Informed consent was obtained. The overlying skin was prepped and draped in the usual sterile fashion. Following local anesthetic application, a 5 [place] catheter was placed into the left pleural cavity. 790 cc of clear amer[place] colored fluid was aspirated. The patient tolerated the procedure well. COMPARISON: Prior study dated July 04, 2025. FINDINGS: Successful left thoracentesis. US/Thoracentesis W US IMPRESSION: Successful left thoracentesis with removal of 790 mL of amer[place] colored fluid. T he patient tolerated the procedure well. No immediate complication noted. Reading Location: [place] [address]
[2025-07-04 20:42] LABS: Partial Thromboplast Time 82.8 Seconds (24.1-36.2)
[2025-07-05] VITALS (8 sets, daily range): BP systolic 104–141; BP diastolic 53–74; PULSE 59–83; RESP 16–18; TEMP 36.5–36.8; O2SAT 92–100; BMI 31.6
[2025-07-05] MEDS: HEPARIN/D5w 25,000 UNITS 25,000 UNITS/250 ML IV.SOLN. 7.4 UNITS CONT INF (00:43)
[2025-07-05 04:00] LABS: Hematocrit 30.2 % (37-47); Hemoglobin 10.1 g/dL (12.0-15.0); Immature Granulocytes Count 0.010 X10^3/uL (0.0-0.0); Mean Corp Hgb Conc 33.4 g/dL (32-36); Mean Corpuscular Volume 107.9 fL (81-99); Mean Platelet Vol. 10.1 fl (6.2-12.0); NRBC Flagged by Analyzer 0 % (0-5); Platelet Count 133 K/mm3 (150-450); RBC Distribution Width CV 13.3 % (11.6-14.6); RBC Distribution Width SD 53.5 fl (35.1-43.9); Red Blood Count 2.80 M/mm3 (4.2-5.4); White Blood Count 3.8 K/mm3 (4.4-11.0)
[2025-07-05 04:20] LABS: Prothrombin Time (Protime)PT. 16.6 SECONDS (11.7-14.9)
[2025-07-05 04:25] LABS: Partial Thromboplast Time 101.0 Seconds (24.1-36.2)
[2025-07-05 04:32] LABS: Anion Gap 7 (5-15); BUN 12 mg/dL (4-19); BUN/Creat Ratio 18.7 RATIO (10-20); Calcium,Total 7.6 mg/dL (7.6-11.0); Carbon Dioxide 24.8 mmol/L (21.0-32.0); Chloride 107 mmol/L (98-108); Estimated Creatinine Clearance 56.20 ml/min (50-250); Glucose 108 mg/dL (70-99); Potassium 3.4 mmol/L (3.3-5.1)
[2025-07-05] MEDS: Budesonide Respules 0.5 MG/2 ML AMPUL.NEB. INHALATION (07:17)
[2025-07-05 08:08] LABS: AST(SGOT) 20 U/L (<=31); Alanine Aminotransfer ALT/SGPT 9 U/L (<=34); Albumin, Serum 2.0 g/dL (3.4-4.8); Alkaline Phosphatase 78 U/L (35-104); Bilirubin, Direct 0.18 mg/dL (0.00-0.30); Globulin 2.3 g/dL (2.2-4.2)
[2025-07-05] MEDS: Lidocaine 2% (20 ml mdv) 20 ML Vial INFILT (09:02)
--- NOTE | 2025-07-05 09:15 | RAD_ITS ---
PROCEDURE: CHEST INSP/EXP 2 VIEW 07/05/2025 REASON FOR EXAM: POST THORACENTESIS TECHNIQUE: Procedure Code: RADCXRINSPEXP Modality: DX Procedure: CHEST INSP/EXP 2 VIEW Inspiration expiration views were obtained following the left thoracentesis. COMPARISON: July 012024. FINDINGS: No evidence of pneumothorax on the post left thoracentesis examination. Minimal residual blunting of the left costophrenic angle. RAD/Chest Insp/Exp 2 View IMPRESSION: No evidence of pneumothorax on the immediate post left thoracentesis examinatio n. The patient tolerated the procedure well. Reading Location: [place] [address]
[2025-07-05] MEDS: Zinc Sulfate 50 mg zinc (220 mg) ORAL capsule PO (09:31)
[2025-07-05] MEDS: Aspirin E.C. 81 MG Tablet PO (09:31)
[2025-07-05] MEDS: Potassium Chloride Oral Tablet 20 MEQ PO (09:31)
[2025-07-05] MEDS: Furosemide 20 MG/2 ML VIAL IV (09:32)
--- NOTE | 2025-07-05 11:45 | PCM.DC.SUM ---
Providers Date of Admission: 07/04/25 Date of Discharge: 07/05/25 Primary Care Physician: Dr. Megan Harris DO Reason For Visit: PE, BILATERAL PLEURAL EFFUSIONS Diagnosis Discharge Diagnosis (1) Pulmonary emboli: Status: Acute Code(s): I26.99 - Other pulmonary embolism without acute cor pulmonale (2) Bilateral pleural effusion: Status: Acute Code(s): J90 - Pleural effusion, not elsewhere classified Medications at Discharge Home Medications escitalopram oxalate 10 mg tablet (Lexapro) 10 mg PO DAILY 02/10/24 evolocumab 140 mg/mL subcutaneous pen injector (Repatha SureClick) 140 mg subcut .COMPLEX 03/15/24 losartan 50 mg tablet 50 mg PO DAILY #90 TABLETS 04/19/24 budesonide-formoterol HFA 160 mcg-4.5 mcg/actuation aerosol inhaler (Symbicort) 2 inh inhalation BID 06/02/25 folic acid 1 mg tablet 1 mg PO DAILY 06/02/25 potassium chloride 20 mEq tablet,extended release(part/cryst) (Klor-Con M) 20 meq PO BID 06/02/25 hydrochlorothiazide 12.5 mg tablet 12.5 mg PO DAILY 06/05/25 pantoprazole 40 mg tablet,delayed release 40 mg PO DAILY 07/03/25 trazodone 50 mg tablet 50 mg PO QHS 07/03/25 zinc acetate 50 mg (zinc) capsule (Galzin) 50 mg PO DAILY 07/03/25 apixaban 5 mg (74 tabs) tablets in a dose pack (Eliquis DVT-PE Treat 30D Start) See Rx Instructions PO .COMPLEX #74 tabs 07/05/25 Hospital Course Operations None Procedures 2-D Echocardiogram, EKG, Thoracentesis (Bilateral) and - (Chest x-ray/CTA chest) Summary of Care Provided Minutes Spent on Discharge: 38 Hospital Course: Mrs. Choe is a 79-year-old female with a history of adenocarcinoma of the lung who wears 2 L nasal cannula at bedtime and presented to the emergency department [facility] on 07/03/2025 for shortness of breath. She follows with Dr. Kimi Shukla for pulmonology and Dr. Jung for oncology. She does report she has had previous pleural effusions which have required thoracenteses. She was unable to recall the last time she had this done. Patient has been on chemoimmunotherapy but due to side effects was taken off and recently started on Keytruda with the first dose approximately 2 weeks ago. She reported increasing shortness of breath with ambulation over the last few weeks prior to presentation. Vital signs on presentation showed temperature 97.6, heart rate 74, blood pressure was 126/59, respiratory 26 and pulse ox was 86% on room air and improved to 97% on 2 L nasal cannula. CBC was overtly unremarkable. Chemistry panel was unremarkable. proBNP was 135. Lactic acid was normal. Troponin was 9. Chest x-ray showed persistent right upper lobe nodular density which had improved compared to prior and residual pleural parenchymal changes in the left base. CTA was obtained and showed a right pulmonary embolus as well as a persistent mass in the right upper lobe with volume loss and a moderate degree of bilateral pleural effusions. Given her hypoxia at rest admission was felt appropriate. Patient reported that her lower extremities had been swollen as well intermittently. She does complain of an weight gain of about 30 pounds. Patient has had nutritional issues as an outpatient. She recently had outpatient lower extremity Dopplers which were unremarkable. Given PE and bilateral pleural effusion, she was placed on a heparin drip and admitted to PCU for bilateral thoracenteses. She had her initial thoracentesis done on 07/04/2025 at which time 530 cc were removed. Contralateral side was done on 07/05/2025 at which time 790 cc were removed. After procedure she was transition to oral Eliquis 10 mg p.o. twice daily and will do this for 1 week then transition to 5 mg p.o. twice daily. She was recently admitted for what was thought to be a TIA and placed on aspirin. Given the need for initiating full anticoagulation we will discontinue her aspirin and keep her on Eliquis. I have discussed this with her primary care physician, Dr. Harris. Per Light's criteria, this is transudative however given her unremarkable echocardiogram with normal EF and mild pulmonary hypertension at 30 mmHg I suspect this is more malignant than anything else. I have asked her to follow-up with her oncologist and if she has reaccumulation of her effusion she may need periodic thoracenteses versus PleurX drain versus CT surgery evaluation for further recommendations. Ambulatory pulse ox was done prior to discharge on 07/05/2025 and the patient did not require any supplemental oxygen being 94% on room air at rest and 92 with exertion. We have asked her to follow-up with her primary care physician within the next 2 weeks and oncology in 2 weeks as previously scheduled. She was discharged home in stable condition with prescription for Eliquis loading dose and ongoing therapeutic dose on 07/05/2025. Discharge diagnoses: Acute hypoxia Dyspnea Bilateral pleural effusions-transudative but suspect malignant Acute right-sided PE Adenocarcinoma of the lung-stage IV Depression Anxiety GERD Essential hypertension COPD Obesity Hard of hearing secondary to presbycusis Physical Exam Narrative Patient appears well. She states she is ready to go home. Feels much better overall. Const alert, oriented x3, no apparent distress, no limitations and well nourished; Negative for average body habitus or healthy appearing Constitutional Narrative: Obese, older, white female, sitting up in bed, on room air, breathing appears comfortable, nontoxic, very pleasant General Appearance: cooperative, comfortable, well kempt and well developed Exam Limitations: no limitations Nutritional Appearance: obese HEENT normocephalic, head/scalp atraumatic and moist oral mucous membranes HEENT Narrative: Moderate to severe hearing loss, Mallampati is 2, no thrush Eyes conjunctivae normal Eyes Narrative: No scleral icterus Neck supple Neck Narrative: Trachea midline Resp normal respiratory effort, no retractions, no use of accessory muscles and clear to auscultation bilaterally Resp Narrative: Improved aeration at the bases bilaterally Auscultation: Negative for rales, rhonchi or wheezes Cardio regular rate, regular rhythm, S1 normal heart sound, S2 normal heart sound, no murmurs, no rub, no gallops and no clicks GI normal to inspection, nondistended, normoactive bowel sounds, soft to palpation and non-tender Extremity Extremity Narrative: Trace bilateral lower extremity edema, pedal pulses 2+, radial pulses are 2+, no cyanosis or clubbing Skin skin turgor normal, no jaundice, no petechiae and no mottling Neuro moves all extremities and no focal motor deficits Speech: speech normal Psych affect normal Psych Narrative: Very pleasant, eye contact is good and patient interacts appropriately Weight / BMI Weight Weight: 78.4 kg Body Mass Index (BMI) 31.6 ABG / Lab / Microbiology Data 07/05/25 03:47 07/05/25 03:47 Laboratory: Laboratory Results - last 24 hr 07/04/25 12:15: Fluid Source PLEURAL FLUID, Fluid Color YELLOW, Fluid Appearance CLEAR, Fluid WBC 0.712, Fluid RBC 115, Fluid Tot Cell Count 0.758 H, Fld Polynuclear WBCs # 0.007, Fld Polynuclear WBCs % 1.0, Fluid Mononuclear WBCs 0.705, Fld Mononuclear WBCs % 99.0, Fluid Neutrophils 2, Fluid Lymphocytes 74, Fluid Monocytes 9, Fluid Macrophages 14, Fld Mesothelial Cells 1, Fl Pathologist Comment May follow, Fluid Glucose 109, Fluid Total Protein 2.1, Fluid LDH 125, Fluid Comment 2 SEE COMMENT 07/04/25 13:41: APTT 37.0 H 07/04/25 20:03: APTT 82.8 H 07/05/25 03:47: WBC 3.8 L, RBC 2.80 L, Hgb 10.1 L, Hct 30.2 L, MCV 107.9 H, MCH 36.1 H, MCHC 33.4, RDW Std Deviation 53.5 H, RDW Coeff of Eze 13.3, Plt Count 133 L, MPV 10.1, Immature Gran % (Auto) 0.300, Neut % (Auto) 51.2, Lymph % (Auto) 32.2, Door % (Auto) 8.4, Eos % (Auto) 7.1 H, Baso % (Auto) 0.8, Absolute Neuts (auto) 2.0, Absolute Lymphs (auto) 1.23, Nucleated RBC % 0, PT 16.6 H, INR 1.3, APTT 101.0 H*, Sodium 139, Potassium 3.4, Chloride 107, Carbon Dioxide 24.8, Anion Gap 7, BUN 12, Creatinine 0.64 L, Estim Creat Clear Calc 56.20, Est GFR (MDRD) Non-Af 90, BUN/Creatinine Ratio 18.7, Glucose 108 H, Calcium 7.6, Total Bilirubin 0.31, Direct Bilirubin 0.18, AST 20, ALT 9, Alkaline Phosphatase 78, Total Protein 4.4 L, Albumin 2.0 L, Globulin 2.3 Microbiology: Microbiology 07/04/25 12:15 Fluid - Pleural (Lung) Gram Stain - Final 07/03/25 13:43 Mucosa - Nose SARS-CoV-2, Influenza & RSV (PCR) - Final Radiography Diagnostic Testing: Radiology Impression Echocardiogram 07/03/25 16:41 Interpretation Summary Normal LV size. Left ventricular systolic function is normal. Pulmonary artery systolic pressure is 30 mmHg. The left ventricular ejection fraction is 65 %. Ordering Physician: Deedee Lockwood Referring Physician: Megan Harris D.O. Performed By: Kandis Torrez RDCS Thoracentesis Ultrasound 07/04/25 07:00 IMPRESSION: Successful right thoracentesis. No immediate complication. Reading Location: [facility] Chest X-Ray 07/04/25 12:25 IMPRESSION: No evidence of pneumothorax following the right thoracentesis. Reading Location: [facility] Thoracentesis Ultrasound 07/04/25 18:40 IMPRESSION: Successful left thoracentesis with removal of 790 mL of amer[place] colored fluid. The patient tolerated the procedure well. No immediate complication noted. Reading Location: [facility] Chest X-Ray 07/05/25 09:15 IMPRESSION: No evidence of pneumothorax on the immediate post left thoracentesis examination. The patient tolerated the procedure well. Reading Location: [facility] D/C Instructions DC O2, CPAP, BIPAP Needs Home O2 Discharge instructions: No Meaningful Use Info Meaningful Use Meaningful Use Diagnoses (Choose all that apply): VTE VTE Anticoag overlap given w/in hospital stay or rx'd at dc?: No Pt receive overlap for 5 days?: No Reason overlap not ordered, prescribed, or given for 5 days: Treatment Not Indicated Discharge Plan Admission Admit Date/Time: 07/04/25 14:20 Primary Reason for Your Visit: Shortness of breath Attending Provider: Adore Carrasco Primary Care Provider: Megan Harris Consulting Providers: Deedee Lcokwood Instructions Additional Instructions / Restrictions: 1. Be sure you are taking your Protonix/pantoprazole as ordered to help protect your stomach 2. Please take the Eliquis exactly as directed Discharge Orders/Prescriptions Prescriptions: New Eliquis DVT-PE Treat 30D Start 5 mg (74 tabs) tablets,dose pack See Rx Instructions .ROUTE .COMPLEX Qty: 74 0RF Rx Instructions: orally per package directions Continued escitalopram oxalate [Lexapro] 10 mg tablet 10 mg PO DAILY budesonide-formoterol [Symbicort] 160-4.5 mcg/actuation HFA aerosol inhaler 2 inh inhalation BID folic acid 1 mg tablet 1 mg PO DAILY potassium chloride [Klor-Con M20] 20 mEq tablet,ER particles/crystals 20 meq PO BID hydrochlorothiazide 12.5 mg tablet 12.5 mg PO DAILY Repatha SureClick 140 mg/mL pen injector 140 mg subcut .COMPLEX Rx Instructions: 140 mg subcutaneously q2w; trazodone 50 mg tablet 50 mg PO QHS Galzin 50 mg (zinc) capsule 50 mg PO DAILY pantoprazole 40 mg tablet,delayed release (DR/EC) 40 mg PO DAILY losartan 50 mg tablet 50 mg PO DAILY Qty: 90 3RF Discontinued aspirin 81 mg Tablet,Delayed Release (Dr/Ec) 81 mg PO BREAKFAST Qty: 30 2RF Referrals / Follow Up: Leon Jung MD [Med Staff - Active Staff, Medical] - Within 2 Weeks Megan Harris DO [Primary Care Provider, Internal Medicine] - Within 2 Weeks Kimi Shukla MD [Non-Staff, Medical] - Within 1 Month Disposition Disposition (needs filled in before D/C Order can be placed): Home, Self Care
[2025-07-05 11:48] LABS: Partial Thromboplast Time 37.7 Seconds (24.1-36.2)
[2025-07-05] MEDS: APIXABAN 5 MG TABLET 10 MG PO (12:13)
[2025-07-05] MEDS: Ensure Plus High Protein 120 ML LIQUID PO (12:13)
--- NOTE | 2025-07-05 12:30 | CASEMGMT ---
Patient has order for discharge. Patient is discharging on Abdoulaye, ARIANA TREVIZO called [facility], copay is $24. RN CM in to updated patient of Eliquis copay. Patient denies further needs or help at discharge. Patient had no further questions or concerns.
--- NOTE | 2025-07-05 13:20 | PHA.DC_ITS ---
Pharmacy [facility] has performed discharge medication counseling for this patient. The patient was counseled on the following discharge medications and changes in medications for homegoing review. - Apixaban 5 mg tablet (DVT/PE dose pack) The Reason for Use, instructions for use, and potential side effects were reviewed for all new medications. The patient's questions regarding all of their medications were answered. The patient was able to verbally demonstrate an understanding of their discharge medications. Medications at Discharge Home Medications escitalopram oxalate 10 mg tablet (Lexapro) 10 mg PO DAILY 02/10/24 evolocumab 140 mg/mL subcutaneous pen injector (Repatha SureClick) 140 mg subcut .COMPLEX 03/15/24 losartan 50 mg tablet 50 mg PO DAILY #90 TABLETS 04/19/24 budesonide-formoterol HFA 160 mcg-4.5 mcg/actuation aerosol inhaler (Symbicort) 2 inh inhalation BID 06/02/25 folic acid 1 mg tablet 1 mg PO DAILY 06/02/25 potassium chloride 20 mEq tablet,extended release(part/cryst) (Klor-Con M) 20 meq PO BID 06/02/25 hydrochlorothiazide 12.5 mg tablet 12.5 mg PO DAILY 06/05/25 pantoprazole 40 mg tablet,delayed release 40 mg PO DAILY 07/03/25 trazodone 50 mg tablet 50 mg PO QHS 07/03/25 zinc acetate 50 mg (zinc) capsule (Galzin) 50 mg PO DAILY 07/03/25 apixaban 5 mg (74 tabs) tablets in a dose pack (Eliquis DVT-PE Treat 30D Start) See Rx Instructions PO .COMPLEX #74 tabs 07/05/25
[2025-07-06 09:45] LABS: Pathologist Comment/Body Fluid Reviewed
== END 2025-07-05 14:12 | disposition home or self-care (01) | DRG 180 ==
LOC: ED 16:26 → PCU 17:03
PROVIDERS: Admitting Provider Internal Medicine; Emergency Provider Surgery; PCP Internal Medicine; Visit Provider Internal Medicine
DX: C34.90 Malignant neoplasm of unspecified part of unspecified bronchus or lung (principal); I26.99 Other pulmonary embolism without acute cor pulmonale; J91.0 Malignant pleural effusion; J98.11 Atelectasis; J44.9 Chronic obstructive pulmonary disease, unspecified; I27.20 Pulmonary hypertension, unspecified; F32.A Depression, unspecified; I10 Essential (primary) hypertension; E66.9 Obesity, unspecified; E78.5 Hyperlipidemia, unspecified; M79.89 Other specified soft tissue disorders; K21.9 Gastro-esophageal reflux disease without esophagitis; F41.9 Anxiety disorder, unspecified; R09.02 Hypoxemia; Z68.31 Body mass index [BMI] 31.0-31.9, adult; H91.90 Unspecified hearing loss, unspecified ear; Z79.899 Other long term (current) drug therapy; Z79.620 Long term (current) use of immunosuppressive biologic; Z11.52 Encounter for screening for COVID-19
CPT/HCPCS: 32555; 36415; 71045; 71046; 71275; 80048; 80076; 82945; 83605; 83615; 83880; 84155; 84157; 84484; 85025; 85610; 85730; 87070; 87075; 87205; 87631; 88108; 88305; 88313; 89050; 93005; 93308; 94640; 94668; 97802; 99285; Q9967; J1938

== ENCOUNTER → 2025-07-25 | Outpatient (CLI) | payer MEDICARE, OTHER, SELFPAY ==
[2025-07-25 16:04] LABS: Anion Gap 9 (5-15); BUN 13 mg/dL (4-19); BUN/Creat Ratio 16.5 RATIO (10-20); Calcium,Total 7.8 mg/dL (7.6-11.0); Carbon Dioxide 24.2 mmol/L (21.0-32.0); Chloride 106 mmol/L (98-108); Glucose 131 mg/dL (70-99); Potassium 3.2 mmol/L (3.3-5.1); Pro- Brain NATRIURETIC PEPTIDE 124 pg/mL (<=1800)
== END | disposition home or self-care (01) ==
LOC: LAB 14:52
PROVIDERS: PCP Internal Medicine; Referring Provider Nurse Practitioner Gerontology; Visit Provider Nurse Practitioner Gerontology
DX: R06.02 Shortness of breath (principal); R06.09 Other forms of dyspnea
CPT/HCPCS: 36415; 80048; 83880

== ENCOUNTER → 2025-08-10 | Outpatient (CLI) | payer MEDICARE, OTHER, SELFPAY ==
[2025-08-10 18:58] LABS: Anion Gap 7 (5-15); BUN 14 mg/dL (4-19); BUN/Creat Ratio 15.9 RATIO (10-20); Calcium,Total 8.2 mg/dL (7.6-11.0); Carbon Dioxide 24.3 mmol/L (21.0-32.0); Chloride 109 mmol/L (98-108); Glucose 126 mg/dL (70-99); Potassium 3.8 mmol/L (3.3-5.1)
== END | disposition home or self-care (01) ==
PROVIDERS: PCP Internal Medicine; Referring Provider Student in an Organized Health Care Education/Training Program; Visit Provider Student in an Organized Health Care Education/Training Program
DX: I10 Essential (primary) hypertension (principal)
CPT/HCPCS: 36415; 80048

== ENCOUNTER 2025-09-13 09:55 | Outpatient (CLI) | payer MEDICARE, OTHER, SELFPAY ==
[2025-09-13 12:36] LABS: Hematocrit 38.9 % (37-47); Hemoglobin 12.5 g/dL (12.0-15.0); Immature Granulocytes Count 0.000 X10^3/uL (0.0-0.0); Mean Corp Hgb Conc 32.1 g/dL (32-36); Mean Corpuscular Volume 101.3 fL (81-99); Mean Platelet Vol. 10.5 fl (6.2-12.0); NRBC Flagged by Analyzer 0 % (0-5); Platelet Count 190 K/mm3 (150-450); RBC Distribution Width CV 13.0 % (11.6-14.6); RBC Distribution Width SD 48.4 fl (35.1-43.9); Red Blood Count 3.84 M/mm3 (4.2-5.4); White Blood Count 4.4 K/mm3 (4.4-11.0)
[2025-09-13 13:23] LABS: Creatinine, Urine (random) 136.00 mg/dL (28.00-217.00); Microalbumin,Random Urine < 12.0 mg/L (<20 mg/L)
[2025-09-13 13:24] LABS: AST(SGOT) 21 U/L (<=31); Alanine Aminotransfer ALT/SGPT 14 U/L (<=34); Albumin, Serum 3.3 g/dL (3.4-4.8); Alkaline Phosphatase 91 U/L (35-104); Anion Gap 10 (5-15); BUN 15 mg/dL (4-19); BUN/Creat Ratio 15.7 RATIO (10-20); Calcium,Total 8.9 mg/dL (7.6-11.0); Carbon Dioxide 24.1 mmol/L (21.0-32.0); Chloride 104 mmol/L (98-108); Cholesterol 176 mg/dL (<=200); Globulin 3.2 g/dL (2.2-4.2); Glucose 110 mg/dL (70-99); Low Density Lipoprotein Calc. 90 mg/dL; Potassium 4.1 mmol/L (3.3-5.1); Triglycerides 101 mg/dL; Very Low Density Lipoprotein 20 mg/dL (5-40); Vitamin B12 574 pg/mL (180-914); Vitamin D,25 Hydroxy 37.5 ng/mL (30-100); cholesterol:hdl ratio screen 2.61
== END 2025-09-13 23:59 | disposition home or self-care (01) ==
LOC: CIMLAB 09:55
PROVIDERS: PCP Internal Medicine; Referring Provider Internal Medicine; Visit Provider Internal Medicine
DX: R73.09 Other abnormal glucose (principal); E46 Unspecified protein-calorie malnutrition; E78.5 Hyperlipidemia, unspecified; E53.8 Deficiency of other specified B group vitamins; K76.0 Fatty (change of) liver, not elsewhere classified; E55.9 Vitamin D deficiency, unspecified
CPT/HCPCS: 36415; 80053; 80061; 82043; 82105; 82306; 82570; 82607; 83036; 85025

== ENCOUNTER → 2025-10-10 | Outpatient (CLI) | payer MEDICARE, OTHER, SELFPAY ==
--- NOTE | 2025-10-10 09:30 | CT_ITS ---
PROCEDURE: CT CHEST AND ABD W/ CONTRAST 10/10/2025 REASON FOR EXAM: F/U NSCLC IV CONTRAST ONLY Lung cancer. TECHNIQUE: Chest and abdomen CT with intravenous contrast. Coronal and Sagittal reconstruction series were provided. One or more dose reduction techniques were used (e.g., Automated exposure control, adjustment of the mA and/or kV according to patient size, use of iterative reconstruction technique. PATIENT PREPARATION: Per protocol ORAL CONTRAST TYPE: None. AMOUNT: 0 mL CONTRAST: Isovue 370 VOLUME: 93mL RADIATION DOSE SUMMARY: CTDlvol: 33 mGy DLP: 631 mGycm COMPARISON: June 2025. FINDINGS: CHEST Thyroid gland: Negative. Lungs: Consolidation in the medial and lower right upper lobe with adjacent airspace disease has progressed. Subtle left lower lobe subpleural nodule image 75 is stable. Subpleural nodule left upper lobe image 46 6 mm also unchanged. No new pulmonary nodules. Scattered airspace opacities and nodules relatively stable. Pleura: Moderate improvement pleural effusions. Negative for pneumothorax. Airways: Imaged bronchi and trachea negative. Mediastinum: Negative for mediastinal mass. Lymph nodes: Right lower paratracheal and hilar adenopathy relatively stable 2.2 by 1.3 cm. Scattered axillary lymph nodes. Unchanged. Heart and Vasculature: Prominent ascending thoracic aorta 3.8 cm. Heart normal size. Negative for vascular calcifications of the thoracic aorta. Coronary Artery Calcifications: Moderate vascular calcifications of the coronary arteries Hardware: None. Bones and Soft Tissues: Age-appropriate degenerative changes of the thoracic spine. ABDOMEN Liver: Liver heterogeneous liver without distinct mass. Remainder of liver negative. Biliary system: Negative. Negative for intrahepatic or extrahepatic ductal dilatation. Gallbladder: Contains stones. Negative for cholecystitis. Spleen: There is a homogeneously enhancing exophytic mass from the anterior and inferior spleen measures at least 7.8 by 7.3 cm. This has slight heterogeneous enhancement as well as slightly cystic changes. Unchanged since the imaged portions from June 2025. Pancreas: Negative. Adrenals: Negative. Kidneys: Negative. Negative for kidney stones, cysts or masses. Bowel: Increased stool throughout the colon with diverticulosis. Negative for small or large-bowel obstruction. Appendix: Negative Vasculature: [id number] atherosclerotic vascular calcifications of the abdominal aorta and its branches. Peritoneum / Retroperitoneum: Negative Bones and Soft Tissues: Age appropriate degenerative changes of the lumbar spine hips and pelvis. CT/CT Chest AND Abd W/ Contrast IMPRESSION: Worsening consolidation/airspace disease in the right upper lobe favor pneumoni a. Improvement bilateral pleural effusions. Bilateral pulmonary nodules and airspace nodules relatively stable. Stable right hilar and mediastinal adenopathy. Negative for hepatic, adrenal or bony metastatic disease. Splenic mass. Given appearance possibly hemangioma. Relatively stable Heterogeneously Reading Location: [id number]
[2025-10-10] MEDS: 0.9% Saline Lock 10 ML Syringe IV (09:48)
== END | disposition home or self-care (01) ==
LOC: CT 09:30
PROVIDERS: PCP Internal Medicine; Referring Provider Internal Medicine Hematology & Oncology; Visit Provider Internal Medicine Hematology & Oncology
DX: C34.90 Malignant neoplasm of unspecified part of unspecified bronchus or lung (principal)
CPT/HCPCS: 71260; 74160; Q9967; A4216